=== PATIENT | female | born 1995 | race Caucasian/White ===

== ENCOUNTER 2025-08-16 20:04 | Emergency (ER) | payer MEDICAID, SELFPAY ==
[2025-08-16 20:05] VITALS: BP 161/91; PULSE 102; RESP 20; TEMP 36.6; O2SAT 97; BMI 48.6
[2025-08-16 21:51] VITALS: O2SAT 98
--- NOTE | 2025-08-16 22:51 | RAD_ITS ---
PROCEDURE: LEFT HIP, UNI W/ PELVIS 2-3 VIEWS 08/16/2025 REASON FOR EXAM: PAIN TECHNIQUE: Procedure Code: [facility] Modality: DX Procedure: HIP, UNI W/ PELVIS 2-3 VIEWS Laterality: Left COMPARISON: None. FINDINGS: No acute fracture or dislocation. Alignment is anatomic. Preserved joint spaces. No aggressive osseous lesion. No appreciable soft tissue swelling or unusual mineralization. RAD/HIP, UNI W/ Pelvis 2-3 Views IMPRESSION: No acute fracture or dislocation. Reading Location: [id number]
[2025-08-17 00:10] VITALS: BP 143/63
--- NOTE | 2025-08-17 00:35 | EX.ED.DYSGE1 ---
HPI History of Present Illness Chief Complaint: Fall Informant: patient Narrative Narrative: Patient is a 30-year-old female with past medical history of bipolar disorder and epilepsy. She states an hour or so prior to arrival she missed a step and fell roughly 3 steps hitting her left side and also striking her head. She states over there was no loss of consciousness and she denies any history of bleeding disorder or blood thinner use. She states that she felt/heard a pop in the left hip. She states since that time she has had difficulty ambulate. With concern for underlying injury she was brought in for evaluation. [facility] Medical History (Updated 08/18/25 @ 00:[address] Constantine Lozano, DO) Stroke Heart attack Epilepsy Bipolar 1 disorder, depressed Home Medications ?Medication ?Instructions ?Recorded ?Last Taken ?Type oxycodone-acetaminophen 5 mg-325 1 tab PO Q6H PRN pain 3 days #12 08/17/25 Unknown Rx mg tablet (Percocet) tabs Allergy/AdvReac Type Severity Reaction Status Date / Time amoxicillin Allergy Anaphylaxis Verified 08/16/25 20:08 Penicillins Allergy Anaphylaxis Verified 08/16/25 20:08 Family History Father Diabetes Mother Heart problem Surgical History H/O wisdom tooth extraction H/O section Hx of cholecystectomy Social History household members: spouse and children current occupational status: unemployed Smoking Status: Light Smoker (<10/day) [facility] ED Constitutional Constitutional ED: Denies chills or fever(s) Eyes Eyes: Denies blurry vision or change in vision ENT ENT ED: Denies sore throat Cardiovascular Cardiovascular: Reports other Details: Negative syncope ; Denies chest pain or palpitations Respiratory/Chest Respiratory/Chest: Denies cough or dyspnea Gastrointestinal Gastrointestinal: Denies abdominal pain, diarrhea, nausea or vomiting Musculoskeletal Musculoskeletal: Reports other Details: Positive left hip pain ; Denies back pain or neck pain Integumentary Denies Abrasions or rash Neurologic Neurologic: Denies headache(s) or paresthesias Hematologic/Lymphatic Hematologic/Lymphatic: Denies easy bleeding or easy bruising EXAM Physical Exam Const Vital Signs: 08/17/25 00:10 08/17/25 00:40 Temperature 98.7 F Pulse Rate 70 Respiratory Rate 18 Blood Pressure 143/63 H 128/78 H Blood Pressure Mean 89 94 Pulse Ox 99 Positive well nourished, well developed and obese General Appearance ED: well developed; Negative for pallor Nutritional Appearance: obese HEENT HEENT Narrative: Normocephalic atraumatic No signs of depressed or basilar skull fracture Eyes PERRL and EOMs intact bilaterally General Eye ED: Negative for scleral icterus Neck supple Neck Narrative: No bony deformity or step-off of the cervical spine No midline tenderness to palpation Resp normal respiratory effort and clear to auscultation bilaterally Cardio regular rate and regular rhythm Back/Spine Back/Spine Narrative: No bony deformity or step-off of the thoracic or lumbar spine No midline tenderness to palpation Extremity Extremity Narrative: Pelvis is stable there is no shortening or external rotation of either lower extremity There is pain on palpation along the left greater trochanter but no overlying abrasions or ecchymosis No bony deformity or joint effusion noted All compartments are soft and compressible going against compartment syndrome Neuro oriented x3, CN's II-XII intact bilaterally and no sensory deficits noted Sensorium / Orientation: alert Psych mental status grossly normal Skin no rashes or lesions noted and no wounds General Skin Exam: Negative for jaundice or pallor MDM MDM MDM Narrative Medical decision making narrative: Patient reported a mechanical fall and therefore I felt no need for cardiac or syncope workup. She reports striking her head but there was no report of LOC she does not take blood thinners nor have a history of bleeding disorder. On physical exam she does not have any signs of head injury and therefore I have low concern for underlying traumatic subarachnoid or subdural hemorrhage and there is no need for head CT. With pain along the left hip and her report of hearing/feeling a pop I do have concern for potential fracture. Therefore an x-ray was obtained. X-ray revealed no sign of fracture or dislocation. After receiving medication the patient cannot ambulate with a steady gait. By physical exam she does not have findings for compartment syndrome and there is no overlying findings of infection such as cellulitis or abscess. Therefore with x-ray proving no signs of fracture or dislocation and patient now able to ambulate there is no need for further intervention and she is otherwise safe for discharge History & Record Review Discussion w/independent historian: Patient Radiography Diagnostic Testing: Clinical Impression(s) from Imaging Studies Hip/Pelvis X-Ray 08/16/25 22:51 IMPRESSION: No acute fracture or dislocation. Reading Location: [facility] Left hip x-ray with 1 view pelvis as interpreted by the emergency medicine physician reveals no acute fracture dislocation or joint effusion Discharge Plan Triage Chief Complaint: Fall ED Provider: Constantine Lozano Dx/Rx/DC Orders Clinical Impression: Accidental fall, Contusion of hip, left, Bipolar disorder, Epilepsy Instructions: ED Hip Contusion Prescriptions: New oxycodone-acetaminophen [Percocet] 5-325 mg tablet 1 tab PO Q6H PRN (Reason: pain) 3 Days Qty: 12 0RF Primary Care Provider: NOT,DEFINED Referrals: NOT,DEFINED [Primary Care Provider, None] Activity Restrictions/Additional Instructions: Your x-ray revealed no sign of fracture or dislocation. Continue to ice the area to help reduce pain and swelling and you may also use ouom-dzy-gfhynwm treatments such as lidocaine patches or IcyHot. Return to the ER should you have any further concerns Print Language: Yi Disposition Disposition: Home, Self Care Discharge Date/Time: 08/17/25 00:42
[2025-08-17 00:40] VITALS: BP 128/78; PULSE 70; RESP 18; TEMP 37.1; O2SAT 99
== END 2025-08-17 00:42 | disposition home or self-care (01) ==
PROVIDERS: Emergency Provider Emergency Medicine; Visit Provider Emergency Medicine
DX: S70.02XA Contusion of left hip, initial encounter (principal); F31.9 Bipolar disorder, unspecified; G40.909 Epilepsy, unspecified, not intractable, without status epilepticus; M25.552 Pain in left hip; F17.200 Nicotine dependence, unspecified, uncomplicated; E66.9 Obesity, unspecified; Z90.49 Acquired absence of other specified parts of digestive tract; Z86.73 Personal history of transient ischemic attack (TIA), and cerebral infarction without residual deficits; I25.2 Old myocardial infarction; W10.9XXA Fall (on) (from) unspecified stairs and steps, initial encounter
CPT/HCPCS: 73502; 96372; 99282

== ENCOUNTER 2025-08-22 02:26 | Emergency (ER) | payer MEDICAID, SELFPAY ==
[2025-08-22 02:27] VITALS: BP 152/81; PULSE 70; RESP 16; TEMP 36.6; O2SAT 99; BMI 48.6
--- NOTE | 2025-08-22 02:36 | EKG12_ITS ---
Test Reason : CP Blood Pressure : */* mmHG Vent. Rate : 62 BPM Atrial Rate : 62 BPM P-R Int : 172 ms QRS Dur : 96 ms QT Int : 406 ms P-R-T Axes : 17 49 18 degrees QTcB Int : 412 ms Normal sinus rhythm Normal ECG Confirmed by CRISTIAN MCKEON, YAHIR ([id number]), acquisition editor KAYA LALA ([id number]) on 08/23/2025 9:58:15 AM Referred By: ER Confirmed By: YAHIR FOSTER MD
--- NOTE | 2025-08-22 02:37 | EDS_ITS ---
HPI History of Present Illness Chief Complaint: Chest Pain Narrative Narrative: Patient is a 30-year-old female presenting to the emergency department for chest pain that started about 130 this morning. Patient has a past medical history of a heart attack and stroke at 13? Epilepsy for which she is supposed to be taking Lamictal but is noncompliant with her medications. Patient states that it started when she laid down to go to sleep. She states that stabbing in her midsternal chest. States that she is also having pain radiating down her left arm and it feels tingly. Reports some nausea. Denies diaphoresis. Endorses mild SOB as well that comes and goes. Denies asymmetric lower extremity edema. Denies history of PE or DVT. Denies any recent travel, hospitalizations or surgeries. Denies any use of oral contraceptive hormonal therapy. Reports dizziness with her chest pain as well. States she gets dizzy before I have a seizure. PFSH PFS Medical History Stroke Heart attack Epilepsy Bipolar 1 disorder, depressed Home Medications ?Medication ?Instructions ?Recorded ?Last Taken ?Type oxycodone-acetaminophen 5 mg-325 1 tab PO Q6H PRN pain 3 days #12 08/17/25 Unknown Rx mg tablet (Percocet) tabs lamotrigine 150 mg tablet 150 mg PO BID #30 tabs 08/22 Unknown Rx (Lamictal) Allergy/AdvReac Type Severity Reaction Status Date / Time amoxicillin Allergy Anaphylaxis Verified 08/22/25 02:32 Penicillins Allergy Anaphylaxis Verified 08/22/25 02:32 Family History Father Diabetes Mother Heart problem Surgical History H/O wisdom tooth extraction H/O section Hx of cholecystectomy Social History household members: spouse and children current occupational status: unemployed Smoking Status: Light Smoker (<10/day) ROS ROS ED ROS Narrative see HPI EXAM Physical Exam Narrative Exam Narrative: Vital signs: Reviewed General: Alert and oriented x 3. No acute distress. BMI 48.6 HEENT: Head is normocephalic and atraumatic, sinuses nontender, pupils equal round and reactive. Nares are patent. Oropharynx and throat exams normal. Neck: Supple without lymphadenopathy nontender Cardiovascular: Regular rate and rhythm, no murmurs. No rubs or gallops. Normal S1 and S2. Radial and DP/PT pulses are symmetric and 2+ in all extremities. Respiratory: Clear to auscultation bilaterally. No wheezes, rales, rhonchi Chest: Chest pain is reproducible on palpation of the sternum. Abdominal: Soft and nontender. Normal bowel sounds. No guarding or rebound. Nonsurgical abdomen Extremities: No asymmetric lower extremity edema. No tenderness. No bruising. Normal range of motion. Normal sensation. Skin: No rash or redness. Neurological: Cranial nerves II through XII are grossly intact. Normal strength and sensation. Normal cerebellar function The rest of the physical exam is unremarkable Const Vital Signs: 08/22/25 02:27 08/22/25 03:27 08/22/25 04:00 Temperature 98 F Temperature Source Oral Pulse Rate 70 64 64 Respiratory Rate 16 17 18 Blood Pressure 152/81 H 150/90 H 135/76 H Blood Pressure Mean 104 110 95 Pulse Ox 99 99 100 Oxygen Delivery Method Room Air Room Air 08/22/25 05:00 08/22/25 05:42 Temperature 98 F Temperature Source Pulse Rate 81 72 Respiratory Rate 16 18 Blood Pressure 117/72 156/91 H Blood Pressure Mean 87 112 Pulse Ox 97 97 Oxygen Delivery Method Room Air Heart Score History: Slightly/Non-Suspicious ECG: Normal Age: </= 45 years Risk Factors: >/= 3 Risk Factors or History of CAD Troponin: </= Normal Limit Score: 2 MDM MDM MDM Narrative Medical decision making narrative: Patient is a 30-year-old female presenting to the emergency department for chest pain. Patient was seen and examined. Vitals are stable. Patient resting bed comfortably no acute distress. Patient given Toradol for pain control and Zofran as well as fluids. Differential includes but is not limited to: ACS, costochondritis, pleurisy less likely PE or aortic pathology given history and physical exam PERC negative. EKG shows NSR with no ischemic changes. No dysrhythmia. No ischemic changes. CBC with no leukocytosis and hemoglobin 1.4. BMP with no significant abnormalities. Troponin and reflex within normal limits. Urine negative. Chest x-ray reviewed by myself. No opacities or pneumothorax seen. No widened mediastinum. Radiology read with mild pulmonary vascular congestion. No focal consolidation. Patient reevaluated. She is playing on her phone stating that she is still having pain and is still feeling dizzy. Again, neurologic exam is unremarkable. The dizziness is intermittent. I do not think this is a central cause of vertigo. Given meclizine with improvement in symptoms. With the patient's reproducible chest pain on exam it is likely costochondritis. HEART score of 2 for risk factors given her history. She was instructed to take NSAIDs at home for pain control. Family at bedside states that the patient moved here and has not had any of her medications in a while. I will prescribe her Lamictal that she reports she is on at baseline. I recommended to follow-up with a primary care doctor and provided a referral for her for future refills of the Lamictal and all her other prescriptions. Patient discharged from the Emergency Department. I do not feel that the patient's evaluation reveals any acute reason for admission at this time. I instructed them to either follow-up with their primary care physician or promptly return to the Emergency Department for reevaluation should symptoms worsen or new symptoms develop. I explained what symptoms would indicate the need to return to the emergency department. Shared decision making was used. The patient voiced understanding of the treatment plan and is agreeable with it. Clinical impression Chest pain Costochondritis History & Record Review Discussion w/independent historian: Patient and Family Lab Data Attestation: I reviewed the patient's lab results. Labs: Laboratory Results - last 24 hr 08/22/25 08/22/25 08/22/25 02:17 04:17 04:36 WBC 7.3 RBC 4.30 Hgb 11.4 L Hct 35.8 L MCV 83.3 MCH 26.5 L MCHC 31.8 L RDW Std Deviation 44.1 H RDW Coeff of Radha 14.7 H Plt Count 360 MPV 9.4 Immature Gran % (Auto) 0.100 Neut % (Auto) 50.4 Lymph % (Auto) 39.5 Surry % (Auto) 8.3 Eos % (Auto) 1.1 Baso % (Auto) 0.6 Absolute Neuts (auto) 3.7 Absolute Lymphs (auto) 2.87 Nucleated RBC % 0 Sodium 141 Potassium 3.3 Chloride 107 Carbon Dioxide 22.7 Anion Gap 12 BUN 6 Creatinine 0.84 Estim Creat Clear Calc 132.42 Est GFR (MDRD) Non-Af 95 BUN/Creatinine Ratio 7.2 L Glucose 87 Calcium 9.3 Troponin T High Sens 7 Troponin T Hi Sens 2 Hr 8 Urine Test Negative Radiography Chest X-Ray - ED: 2 View, Read by ED Physician and No Acute Disease Diagnostic Testing: Clinical Impression(s) from Imaging Studies Chest X-Ray 08/22/25 02:50 IMPRESSION: Mild pulmonary vascular congestion. No focal consolidation. Reading Location: [facility] Discharge Plan Triage Chief Complaint: Chest Pain ED Provider: Diana Gardner Dx/Rx/DC Orders Clinical Impression: Costochondritis Instructions: ED Chest Pain, Uncertain Cause, ED Chest Wall Pain, Costochondritis Prescriptions: New lamotrigine [Lamictal] 150 mg tablet 150 mg PO BID Qty: 30 0RF No Action oxycodone-acetaminophen [Percocet] 5-325 mg tablet 1 tab PO Q6H PRN (Reason: pain) 3 Days Qty: 12 0RF Primary Care Provider: Domingo Edwards Referrals: Aga Carr MD [Med Staff - Registered Safety Engineer, Internal Medicine] - As soon as possible NOT,DEFINED [Non-Staff, None] Activity Restrictions/Additional Instructions: Take NSAIDs at home for pain control of your chest pain. I sent your seizure medication to your pharmacy. Take as prescribed. You will need to follow up with a primary care doctor, below, for additional refills and your other prescriptions. Your evaluation in the Emergency Department did not reveal any acute reason for admission. However, I want to emphasize that you may be early in the course of a disease process or illness even if it is not present. For this reason you should follow-up within 24 hours for reevaluation with either your primary care physician or if necessary back here in the Emergency Department. You should return to the Emergency Department immediately if your symptoms worsen or new symptoms develop. Print Language: New Zealander Disposition Disposition: Home, Self Care
[2025-08-22 02:46] LABS: Hematocrit 35.8 % (37-47); Hemoglobin 11.4 g/dL (12.0-15.0); Immature Granulocytes Count 0.010 X10^3/uL (0.0-0.0); Mean Corp Hgb Conc 31.8 g/dL (32-36); Mean Corpuscular Volume 83.3 fL (81-99); Mean Platelet Vol. 9.4 fl (6.2-12.0); NRBC Flagged by Analyzer 0 % (0-5); Platelet Count 360 K/mm3 (150-450); RBC Distribution Width CV 14.7 % (11.6-14.6); RBC Distribution Width SD 44.1 fl (35.1-43.9); Red Blood Count 4.30 M/mm3 (4.2-5.4); White Blood Count 7.3 K/mm3 (4.4-11.0)
--- NOTE | 2025-08-22 02:50 | RAD_ITS ---
PROCEDURE: CHEST PA AND LATERAL 08/21/2025 REASON FOR EXAM: CHEST PAIN TECHNIQUE: Procedure Code: RADCXR Modality: DX Procedure: CHEST PA AND LATERAL FINDINGS: Mild pulmonary vascular congestion. No focal consolidation. No pleural effusion or pneumothorax. Cardiac silhouette is within normal limits. No acute fractures. RAD/Chest PA and Lateral IMPRESSION: Mild pulmonary vascular congestion. No focal consolidation. Reading Location: [id number]
[2025-08-22 03:06] LABS: Anion Gap 12 (5-15); BUN 6 mg/dL (4-19); BUN/Creat Ratio 7.2 RATIO (10-20); Calcium,Total 9.3 mg/dL (7.6-11.0); Carbon Dioxide 22.7 mmol/L (21.0-32.0); Chloride 107 mmol/L (98-108); Estimated Creatinine Clearance 132.42 ml/min (50-250); Glucose 87 mg/dL (70-99); Potassium 3.3 mmol/L (3.3-5.1)
[2025-08-22 03:27] VITALS: BP 150/90; PULSE 64; RESP 17; O2SAT 99
[2025-08-22 03:31] LABS: Troponin T High Sensitivity 7 ng/L (<=14)
[2025-08-22] MEDS: 0.9% Normal Saline (1000mL) 1,000 ML 1000 ML IV (03:55)
[2025-08-22 04:00] VITALS: BP 135/76; PULSE 64; RESP 18; O2SAT 100
[2025-08-22 04:44] LABS: Troponin T High Sens 2 HR 8 ng/L (<=14)
[2025-08-22 04:49] LABS: Internal QC Validated? YES +Cl - CLEAR BKGD; Pregnancy, Urine Negative Negative; Record Kit Lot#,Urine Preg 0000980607
[2025-08-22 05:00] VITALS: BP 117/72; PULSE 81; RESP 16; O2SAT 97
[2025-08-22 05:42] VITALS: BP 156/91; PULSE 72; RESP 18; TEMP 36.6; O2SAT 97
== END 2025-08-22 05:47 | disposition home or self-care (01) ==
PROVIDERS: Emergency Provider Student in an Organized Health Care Education/Training Program; PCP Student in an Organized Health Care Education/Training Program; Visit Provider Student in an Organized Health Care Education/Training Program
DX: M94.0 Chondrocostal junction syndrome [Tietze] (principal); G40.909 Epilepsy, unspecified, not intractable, without status epilepticus; F17.200 Nicotine dependence, unspecified, uncomplicated; Z91.148 Patient's other noncompliance with medication regimen for other reason
CPT/HCPCS: 71046; 80048; 81025; 84484; 85025; 93005; 96361; 96374; 96375; 99285; A4216; J2405

== ENCOUNTER 2025-08-26 03:35 | Emergency (ER) | payer MEDICAID, SELFPAY ==
[2025-08-26 03:35] VITALS: BP 160/101; PULSE 110; RESP 18; TEMP 36.4; O2SAT 98; BMI 50.3
--- NOTE | 2025-08-26 03:46 | CT_ITS ---
PROCEDURE: BRAIN/HEAD WITHOUT CONTRAST 08/26/2025 REASON FOR EXAM: HEAD INJURY TECHNIQUE: Procedure Code: CTBR Modality: CT Procedure: BRAIN/HEAD WITHOUT CONTRAST Coronal and Sagittal reconstruction series were provided. One or more dose reduction techniques were used (e.g., Automated exposure control, adjustment of the mA and/or kV according to patient size, use of iterative reconstruction technique. COMPARISON: None available. FINDINGS: There is no extra-axial or intra-axial intracranial hemorrhage. No mass effect or midline shift is seen. The ventricles, sulci, and cisterns are normal in size and shape for the patient's age. There is normal becerra-white matter differentiation. The posterior fossa is grossly unremarkable. The skull is unremarkable. Visualized paranasal sinuses are clear. The mastoid air cells show normal translucency. CT/Brain/Head without Contrast IMPRESSION: No intracranial hemorrhage. No mass effect or midline shift. Reading [facility]
--- OUTSIDE RECORDS SUMMARY | 2025-08-26 04:00 | XMS RPT_ITS | CCD ---
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 ERICKSON DIETZ ([phone]) [facility] ([facility]) [address] [place] [address] Eosinophils/100 WBC (Bld) 0.6 % Normal 0.0-6.0 [facility] Comment on above: Performed By: #### L [id number] #### Toll Ticket Clerk: ERICKSON DIETZ ([phone]) [place]) [address] [place] [address] Erythrocyte distribution width (RBC) [Ratio] 14.6 % Normal 11.5-15.0 [facility] Comment on above: Performed By: #### L [id number] #### Toll Ticket Clerk: ERICKSON DIETZ ([phone]) [facility] ([facility]) [address] [place] [address] Hematocrit (Bld) [Volume fraction] 37.4 % Normal 35.0-47.0 [facility] Comment on above: Performed By: #### L [id number] #### Toll Ticket Clerk: ERICKSON DIETZ ([phone]) [facility] ([facility]) [address] [place] [address] Hemoglobin (Bld) [Mass/Vol] 12.0 g/dL Normal 11.7-16.0 [facility] Comment on above: Performed By: #### L [id number] #### Toll Ticket Clerk: ERICKSON DIETZ ([phone]) [place]) [address] [place] [address] IMMATURE GRANS % 0.6 % Normal 0.0-2.0 [facility] Comment on above: Performed By: #### L [id number] #### Toll Ticket Clerk: ERICKSON DIETZ ([phone]) [place]) [address] [place] [address] IMMATURE GRANS ABSOLUTE 0.1 10*3/uL High <0.1 [facility] Comment on above: Performed By: #### L [id number] #### Toll Ticket Clerk: ERICKSON DIETZ ([phone]) [place]) [address] [place] [address] Lymphocytes (Bld) [#/Vol] 2.9 10*3/uL Normal 1.0-4.3 [facility] Comment on above: Performed By: #### L [id number] #### Toll Ticket Clerk: ERICKSON DIETZ ([phone]) [place]) [address] [place] [address] Lymphocytes/100 WBC (Bld) 25.0 % Normal 15.0-45.0 [facility] Comment on above: Performed By: #### L [id number] #### Toll Ticket Clerk: ERICKSON DIETZ ([phone]) [place]) [address] [place] [address] MCH (RBC) [Entitic mass] 26.8 pg Normal 26.0-34.0 [facility] Comment on above: Performed By: #### L [id number] #### Toll Ticket Clerk: ERICKSON DIETZ ([phone]) [place]) [address] [place] [address] MCHC 32.1 % Normal 30.5-36.0 [facility] Comment on above: Performed By: #### L [id number] #### Toll Ticket Clerk: ERICKSON DIETZ ([phone]) [facility] ([facility]) [address] [place] [address] MCV (RBC) [Entitic vol] 83.5 fL Normal 77.0-99.0 [facility] Comment on above: Performed By: #### L [id number] #### Toll Ticket Clerk: ERICKSON DIETZ ([phone]) [facility] ([facility]) [address] [place] [address] Monocytes (Bld) [#/Vol] 0.9 10*3/uL Normal 0.0-0.9 [facility] Comment on above: Performed By: #### L [id number] #### Toll Ticket Clerk: ERICKSON DIETZ ([phone]) [facility] ([facility]) [address] [place] [address] Monocytes/100 WBC (Bld) 7.7 % Normal 5.0-13.0 [facility] Comment on above: Performed By: #### L [id number] #### Toll Ticket Clerk: ERICKSON DIETZ ([phone]) [facility] ([facility]) [address] [place] [address] NEUTROPHILS ABSOLUTE 7.7 10*3/uL High 1.8-7.5 [facility] Comment on above: Performed By: #### L [id number] #### Toll Ticket Clerk: ERICKSON DIETZ ([phone]) [facility] ([facility]) [address] [place] [address] Neutrophils/100 WBC (Bld) 65.7 % Normal 38.0-82.0 [facility] Comment on above: Performed By: #### L [id number] #### Toll Ticket Clerk: ERICKSON DIETZ ([phone]) [facility] ([facility]) [address] [place] [address] NRBC 0.0 /100 WBCs Normal 0.0-2.0 [facility] Comment on above: Performed By: #### L [id number] #### Toll Ticket Clerk: ERICKSON DIETZ ([phone]) [facility] ([facility]) [address] [place] [address] Platelet mean volume (Bld) [Entitic vol] 9.2 fL Normal 9.0-12.7 [facility] Comment on above: Performed By: #### L [id number] #### Toll Ticket Clerk: ERICKSON DIETZ ([phone]) [facility] ([facility]) [address] [place] [address] Platelets (Bld) [#/Vol] 369 10*3/uL Normal 140-440 [facility] Comment on above: Performed By: #### L [id number] #### Toll Ticket Clerk: ERICKSON DIETZ ([phone]) [facility] ([facility]) [address] [place] [address] RBC (Bld) [#/Vol] 4.48 10*6/uL Normal 3.80-5.20 [facility] Comment on above: Performed By: #### L [id number] #### Toll Ticket Clerk: ERICKSON DIETZ ([phone]) [facility] ([facility]) [address] [place] [address] WBC (Bld) [#/Vol] 11.7 10*3/uL High 3.6-10.7 [facility] Comment on above: Performed By: #### L [id number] #### Toll Ticket Clerk: ERICKSON DIETZ ([phone]) [facility] ([facility]) [address] [place] [address] COMPLETE URINALYSIS WITH REF DIEGO TO CULTUREon 04-26-2025 BACTERIA (#/HPF) IN URINE Moderate Abnormal Negative [facility] Comment on above: Performed By: #### L [id number] #### Toll Ticket Clerk: ERICKSON DIETZ ([phone]) [facility] ([facility]) [address] [place] [address] BILIRUBIN, TOTAL PRESENCE IN URINE Negative Normal Negative [facility] Comment on above: Performed By: #### L [id number] #### Toll Ticket Clerk: ERICKSON DIETZ ([phone]) [facility] ([facility]) [address] [place] [address] Clarity (U) Turbid Abnormal Clear [facility] Comment on above: Performed By: #### L [id number] #### Toll Ticket Clerk: ERICKSON DIETZ ([phone]) [facility] ([facility]) [address] [place] [address] Color (U) Yellow Normal Lt. Yellow [facility] Comment on above: Performed By: #### L [id number] #### Toll Ticket Clerk: ERICKSON DIETZ ([phone]) [facility] ([facility]) [address] [place] [address] GLUCOSE (MG/DL) IN URINE Normal Normal Normal (<70) [facility] Comment on above: Performed By: #### L [id number] #### Toll Ticket Clerk: ERICKSON DIETZ ([phone]) [facility] ([facility]) [address] [place] [address] HEMOGLOBIN PRESENCE IN URINE Negative Normal Negative [facility] Comment on above: Performed By: #### L [id number] #### Toll Ticket Clerk: ERICKSON DIETZ ([phone]) [facility] ([facility]) [address] [place] [address] HYALINE CASTS (#/LPF) IN URINE SEDIMENT BY MICROSCOPY Negative Normal Negative [facility] Comment on above: Performed By: #### L [id number] #### Toll Ticket Clerk: ERICKSON DIETZ ([phone]) [facility] ([facility]) [address] [place] [address] Ketones Ql (U) Negative Normal Negative [facility] Comment on above: Performed By: #### L [id number] #### Toll Ticket Clerk: ERICKSON DIETZ ([phone]) [facility] ([facility]) [address] [place] [address] LEUKOCYTE ESTERASE PRESENCE IN URINE BY TEST STRIP Negative Normal Negative [facility] Comment on above: Performed By: #### L [id number] #### Toll Ticket Clerk: ERICKSON DIETZ ([phone]) [facility] ([facility]) [address] [place] [address] [place] MUCUS (#/LPF) IN URINE SEDIMENT Few Normal Negative [facility] Comment on above: Performed By: #### L [id number] #### Toll Ticket Clerk: ERICKSON DIETZ ([phone]) [facility] ([facility]) [address] [place] [address] NITRITE PRESENCE IN URINE Positive Abnormal Negative [facility] Comment on above: Performed By: #### L [id number] #### Toll Ticket Clerk: ERICKSON DIETZ ([phone]) [facility] ([facility]) [address] [place] [address] pH (U) 5.5 [pH] Normal 5.0-8.0 [facility] Comment on above: Performed By: #### L [id number] #### Toll Ticket Clerk: ERICKSON DIETZ ([phone]) [facility] ([facility]) [address] [place] [address] Protein (U) [Mass/Vol] 20 mg/dL Abnormal Negative [facility] Comment on above: Performed By: #### L [id number] #### Toll Ticket Clerk: ERICKSON DIETZ ([phone]) [facility] ([facility]) [address] [place] [address] RBC (#/HPF) IN URINE SEDIMENT 0-2 Normal 0-2 [facility] Comment on above: Performed By: #### L [id number] #### Toll Ticket Clerk: ERICKSON DIETZ ([phone]) [place]) [address] [place] [address] Specific gravity (U) [Rel density] 1.031 High 1.005-1.030 [facility] Comment on above: Result Comment: NIRAV Almodovar COMMENTS: A specimen with <=10 WBC is not consistent with inflammation. This specimen will not reflex to a urine culture. Performed By: #### L [id number] #### Toll Ticket Clerk: ERICKSON DIETZ ([phone]) [facility] ([facility]) [address] [place] [address] [place] SQUAMOUS EPITHELIAL CELLS (#/HPF) IN URINE SEDIMENT 11-25 Abnormal 3-5 [facility] Comment on above: Performed By: #### L [id number] #### Toll Ticket Clerk: ERICKSON DIETZ ([phone]) [facility] ([facility]) [address] [place] [address] UROBILINOGEN (MG/DL) IN URINE Normal Normal Normal (0-1) [facility] Comment on above: Performed By: #### L [id number] #### Toll Ticket Clerk: ERICKSON DIETZ ([phone]) [facility] ([facility]) [address] [place] [address] WBC (LEUKOCYTE) (#/HPF) IN URINE SEDIMENT 3-5 Normal 0-5 [facility] Comment on above: Performed By: #### L [id number] #### Toll Ticket Clerk: ERICKSON DIETZ ([phone]) [facility] ([facility]) [address] [place] [address] COMPREHENSIVE METABOLIC PANE Adam 04-26-2025 Albumin [Mass/Vol] 3.7 g/dL Normal 3.5-5.0 [facility] Comment on above: Performed By: #### L [id number] #### Toll Ticket Clerk: ERICKSON DIETZ ([phone]) [facility] ([facility]) [address] [place] [address] ALP [Catalytic activity/Vol] 75 U/L Normal 40-150 [facility] Comment on above: Performed By: #### L [id number] #### Toll Ticket Clerk: ERICKSON DIETZ ([phone]) [facility] ([facility]) [address] [place] [address] ALT [Catalytic activity/Vol] 32 U/L High <30 [facility] Comment on above: Performed By: #### L [id number] #### Toll Ticket Clerk: ERICKSON DIETZ ([phone]) [facility] ([facility]) [address] [place] [address] Anion gap [Moles/Vol] 10 mmol/L Normal 3-13 [facility] Comment on above: Performed By: #### L [id number] #### Toll Ticket Clerk: ERICKSON DIETZ ([phone]) [facility] ([facility]) [address] [place] [address] AST [Catalytic activity/Vol] 31 U/L Normal <34 [facility] Comment on above: Performed By: #### L [id number] #### Toll Ticket Clerk: ERICKSON DIETZ ([phone]) [facility] ([facility]) [address] [place] [address] Bilirubin [Mass/Vol] 0.5 mg/dL Normal <1.2 [facility] Comment on above: Performed By: #### L [id number] #### Toll Ticket Clerk: ERICKSON DIETZ ([phone]) [facility] ([facility]) [address] [place] [address] Calcium [Mass/Vol] 9.2 mg/dL Normal 8.4-10.2 [facility] Comment on above: Performed By: #### L [id number] #### Toll Ticket Clerk: ERICKSON DIETZ ([phone]) [facility] ([facility]) [address] [place] [address] Chloride [Moles/Vol] 106 mmol/L Normal 98-107 [facility] Comment on above: Performed By: #### L [id number] #### Toll Ticket Clerk: ERICKSON DIETZ ([phone]) [facility] ([facility]) [address] [place] [address] CO2 [Moles/Vol] 24 mmol/L Normal 22-29 [facility] Comment on above: Performed By: #### L [id number] #### Toll Ticket Clerk: ERICKSON DIETZ ([phone]) [facility] ([facility]) [address] [place] [address] Creatinine [Mass/Vol] 0.81 mg/dL Normal 0.57-1.11 [facility] Comment on above: Performed By: #### L [id number] #### Toll Ticket Clerk: ERICKSON DIETZ ([phone]) [facility] ([facility]) [address] [place] [address] GLOMERULAR FILTRATION RATE ML/MIN/1.73 SQ M.PREDICTED >90.0 Normal >60.0 [facility] Comment on above: Result Comment: Calc ulation based on the Chronic Kidney Disease Epidemiology Collaboration (CKD-EPI) equation refit without adjustment for race Performed By: #### L [id number] #### Toll Ticket Clerk: ERICKSON DIETZ ([phone]) [facility] ([facility]) [address] [place] [address] [place] Glucose [Mass/Vol] 91 mg/dL Normal 74-100 [facility] Comment on above: Performed By: #### L [id number] #### Toll Ticket Clerk: ERICKSON DIETZ ([phone]) [facility] ([facility]) [address] [place] [address] Potassium [Moles/Vol] 3.9 mmol/L Normal 3.5-5.1 [facility] Comment on above: Result Comment: [facility] potassium values may be up to 0.5 mmol/L lower than serum values. Performed By: #### L [id number] #### Toll Ticket Clerk: ERICKSON DIETZ ([phone]) [facility] ([facility]) [address] [place] [address] Protein [Mass/Vol] 7.8 g/dL Normal 6.4-8.3 [facility] Comment on above: Performed By: #### L [id number] #### Toll Ticket Clerk: ERICKSON DIETZ ([phone]) [facility] ([facility]) [address] [place] [address] [place] Sodium [Moles/Vol] 140 mmol/L Normal 136-145 [facility] Comment on above: Performed By: #### L [id number] #### Toll Ticket Clerk: ERICKSON DIETZ ([phone]) [facility] ([facility]) [address] [place] [address] Urea nitrogen [Mass/Vol] 11 mg/dL Normal 8-21 [facility] Comment on above: Performed By: #### L [id number] #### Toll Ticket Clerk: ERICKSON DIETZ ([phone]) [facility] ([facility]) [address] [place] [address] CT HEAD WO IV CONTRASTon CT HEAD WO IV CONTRAST Patient Name: NADIA BROWN : 1995 Exam Date/Time: 04/26/2025 21:26 Procedure: CT HEAD WO IV CONTRAST Ordering Provider: QUIROZ YASMIN Reason For Exam: Dizziness, persistent/recurrent, cardiac or vascular cause suspected Gender: Female Age: 29 years Exam: CT HEAD WO IV CONTRAST Clinical Indication: Dizziness Imaging Technique: Multiple axial 3mm CT images of the head were obtained from the skull base to the vertex. Coronal and sagittal reconstructs were rendered. Dose reduction was employed with automated exposure control. Comparison: 05/23/2014 FINDINGS: There is no acute intracranial hemorrhage. The brain parenchyma ventricle morphology is within normal limits for the patient's age. The globes are symmetric. The calvarium is intact. The paranasal sinuses are pneumatized. The mastoid air cells are pneumatized. IMPRESSION: Imaging does not explain the patient's clinical symptoms. Report Dictated on Electronically Signed By: Stefanie Cortez MD Electronically Signed Date/Time: 04/26/2025 9:36 PM EDT Dizziness (Patient presents for dizziness for a couple of days ) [facility] contraston 2024 Imaging does not exp sandra the patient's clinical symptoms. Report Dictated on Electronically Signed By: Stefanie Cortez MD Electronically Signed Date/Time: 04/26/2025 9:36 PM EDT [facility] [place] [facility] 1995 [id number] Exam Date/Time: 04/26/2025 21:26 Procedure: CT HEAD WO IV CONTRAST Ordering Provider: QUIROZ YASMIN Reason For Exam: Dizziness, persistent/recurrent, cardiac or vascular cause suspected Gender: Female Age: 29 years Exam: CT HEAD WO IV CONTRAST Clinical Indication: Dizziness Imaging Technique: Multiple axial 3mm CT images of the head were obtained from the skull base to the vertex. Coronal and sagittal reconstructs were rendered. Dose reduction was employed with automated exposure control. Comparison: 05/23/2014 FINDINGS: There is no acute intracranial hemorrhage. The brain parenchyma ventricle morphology is within normal limits for the patient's age. The globes are symmetric. The calvarium is intact. The paranasal sinuses are pneumatized. The mastoid air cells are pneumatized. [facility] Stefanie Cortez MD - 04/26/2025 Patient Name: NADIA BROWN : 1995 [facility]#: [id number] Exam Date/Time: 04/26/2025 21:26 Procedure: CT HEAD WO IV CONTRAST Ordering Provider: QUIROZ YASMIN Reason For Exam: Dizziness, persistent/recurrent, cardiac or vascular cause suspected Gender: Female Age: 29 years Exam: CT HEAD WO IV CONTRAST Clinical Indication: Dizziness Imaging Technique: Multiple axial 3mm CT images of the head were obtained from the skull base to the vertex. Coronal and sagittal reconstructs were rendered. Dose reduction was employed with automated exposure control. Comparison: 05/23/2014 FINDINGS: There is no acute intracranial hemorrhage. The brain parenchyma ventricle morphology is within normal limits for the patient's age. The globes are symmetric. The calvarium is intact. The paranasal sinuses are pneumatized. The mastoid air cells are pneumatized. IMPRESSION: Imaging does not explain the patient's clinical symptoms. Report Dictated on Electronically Signed By: Stefanie Cortez MD Electronically Signed Date/Time: 04/26/2025 9:36 PM EDT [facility] Radiology Study observation (narrative) [facility] CT Head WO contrastOrdered B y: Stefanie Cortez on 04-26-2025 [facility] [employer] Work Phone: Comprehensive metabolic 1998 panelon 04-26-2025 Albumin [Mass/Vol] 3.7 g/dL 3.5 - 5.0 g/dL [facility] ALP [Catalytic activity/Vol] 75 U/L 40 - 150 U/L [facility] ALT [Catalytic activity/Vol] 32 U/L High NINF - 30 U/L [facility] Anion gap [Moles/Vol] 10 mmol/L 3 - 13 mmol/L [facility] AST [Catalytic activity/Vol] 31 U/L NINF - 34 U/L [facility] Bilirubin [Mass/Vol] 0.5 mg/dL NINF - 1.2 mg/dL [facility] Calcium [Mass/Vol] 9.2 mg/dL 8.4 - 10. 2 mg/dL [facility] Chloride [Moles/Vol] 106 mmol/L 98 - 10 7 mmol/L [facility] CO2 [Moles/Vol] 24 mmol/L 22 - 29 mmol/L [facility] Creatinine [Mass/Vol] 0.81 mg/dL 0.57 - 1.11 mg/dL [facility] GFR/1.73 sq M.predicted (S/P/Bld) [Vol rate/Area] - PINF [facility] Comment on above: Calculation based on the Chronic Kidney Disease Epidemiology Collaboration (CKD-EPI) equation refit without adjustment for race Glucose [Mass/Vol] 91 mg/dL 74 - 100 mg/dL [facility] Interpretation and review of laboratory results Abnormal [facility] Potassium [Moles/Vol] 3.9 mmol/L 3.5 - 5.1 mmol/L [facility] Comment on above: Plasma potassium roseanne ues may be up to 0.5 mmol/L lower than serum values. Protein [Mass/Vol] 7.8 g/dL 6.4 - 8.3 g/dL [facility] Sodium [Moles/Vol] 140 mmol/L 136 - 145 mmol/L [facility] Urea nitrogen [Mass/Vol] 11 mg/dL 8 - 21 mg/dL [facility] DRUGS OF ABUSEon 04-26-2025 AMPHETAMINE SCREEN Negative Normal [facility] Comment on above: Performed By: #### [id number] #### Toll Ticket Clerk: ERICKSON DIETZ ([phone]) [facility] ([facility] & [facility]) [address] [place] [address] BARBITURATES SCREEN Negative Normal [facility] Comment on above: Performed By: #### L [id number] #### Toll Ticket Clerk: ERICKSON DIETZ ([phone]) [facility] ([facility]) [address] [place] [address] [place] BENZODIAZEPINE SCREEN Negative Normal [facility] Comment on above: Performed By: #### L [id number] #### Toll Ticket Clerk: ERICKSON DIETZ ([phone]) [facility] ([facility]) [address] [place] [address] COCAINE METAB. SCREEN Negative Normal [facility] Comment on above: Performed By: #### L [id number] #### Toll Ticket Clerk: ERICKSON DIETZ ([phone]) [facility] ([facility]) [address] [place] [address] FENTANYL SCREEN, UR QUAL Negative Normal [facility] Comment on above: Result Comment: NIRAV Almodovar COMMENTS: The expected value for all of the drugs listed above is Negative. The following drugs or drug groups have been screened for by Immunoassay at the following thresholds: Amphetamine class (1000 ng/mL) Barbiturates (200 ng/mL) Benzodiazepines (200 ng/mL) Cocaine (300 ng/mL) Methadone (300 ng/mL) Opiates (300 ng/mL) Oxycodone (100 ng/mL) PCP (25 ng/mL) Fentanyl (1.0 ng/ml) NOTE: These results are for medical treatment only. Analysis performed using non-forensic procedures. POSITIVE results are NOT confirmed by a more specific alternative method unless requested. If confirmation is needed, request confirmation under separate order. Performed By: #### L [id number] #### Toll Ticket Clerk: ERICKSON DIETZ ([phone]) [facility] ([facility]) [address] [place] [address] METHADONE SCREEN Negative [facility] Comment on above: Performed By: #### L [id number] #### Toll Ticket Clerk: ERICKSON DIETZ ([phone]) [facility] ([facility]) [address] [place] [address] OPIATES SCREEN Negative Normal [facility] Comment on above: Performed By: #### L [id number] #### Toll Ticket Clerk: ERICKSON DIETZ ([phone]) [facility] ([facility]) [address] [place] [address] OXYCODONE SCREEN Negative [facility] Comment on above: Performed By: #### L [id number] #### Toll Ticket Clerk: ERICKSON DIETZ ([phone]) [facility] ([facility]) [address] [place] [address] PHENCYCLIDINE SCREEN Negative Normal [facility] Comment on above: Performed By: #### L [id number] #### Toll Ticket Clerk: ERICKSON DIETZ ([phone]) [facility] ([facility] ED Provider Noteon ED Provider Note Emergency Department Encounter [facility] EMERGENCY DEPT Patient: Nadia Brown : 1995 Date of Evaluation: 04/26/2025 ED ELIF Provider: Fernando Landry PA-C EDcare was supervised by Dr. Quiroz who independently examined and evaluated the patient. Please see their attestation note for further details. Chief Complaint Chief Complaint Patient presents with Dizziness Patient presents for dizziness for a couple of days LYTTONSharmila Brown is a 29 y.o. female who presents to the emergency department for dizziness for a few days and syncope today. History of epilepsy. On Lamictal. Patient says she did pass out today. No head injury. Describes the dizziness as a room spinning sensation. No slurred speech, facial drooping, chest pain, shortness of breath. Limitations to history: None Outside historians: EMR Past History Medical History[1] Surgical History[2] Social History[3] Medications/Allergies Discharge Medication List as of 04/27/2025 12:20 AM Allergies[4] Physical Exam BP 130/88 Pulse 89 Temp 37 ?C (98.6 ?F) (Temporal) Resp 16 Ht 1.651 m (5' 5) Wt 129 kg (285 lb) SpO2 99% BMI 47.43 kg/m? Physical Exam GENERAL APPEARANCE: Awake and alert. Cooperative. No acute distress. HEAD: Normocephalic. Atraumatic. EYES: Sclera anicteric. ENT: Tolerates saliva. No trismus. EOMI. PERRLA NECK: Supple. Trachea midline. CARDIO: Normal rate. LUNGS: Respirations unlabored. CTAB. ABDOMEN: Soft. Non-distended. Non-tender. MUSCULOSKELETAL: No acute deformities. SKIN: Warm and dry. NEUROLOGICAL: Alert, Oriented x 3, NIH 0, cia agent II-XII intact. HINTS exam c/w peripheral vertigo. Gait normal PSYCHIATRIC: Normal mood. SCREENINGS D Labs: Results for orders placed or performed during the hospital encounter of 04/26/25 ECG 12 lead Collection Time: 04/26/25 6:58 PM Result Value Ref Range Heart Rate 105 bpm QRSD Interval 84 ms QT Interval 321 ms QTC Interval 424 ms P Rudy 43 degrees QRS Rudy 36 degrees T Wave Rudy 39 degrees TN Interval 154 ms Drug screen panel, emergency Collection Time: 04/26/25 9:14 PM Result Value Ref Range AMPHETAMINE SCREEN Negative BARBITURATES SCREEN Negative BENZODIAZEPINE SCREEN Negative COCAINE METAB. SCREEN Negative METHADONE SCREEN Negative OPIATES SCREEN Negative OXYCODONE SCREEN Negative PHENCYCLIDINE SCREEN Negative FENTANYL SCREEN, UR QUAL Negative Complete Urinalysis with reflex to Culture Collection Time: 04/26/25 9:14 PM Result Value Ref Range Color, Urine Yellow Lt. Yellow Clarity, Urine Turbid (A) Clear pH, Urine 5.5 5.0 - 8.0 pH Leukocytes, Urine Negative Negative Michael/uL Nitrite, Urine Positive (A) Negative Protein, Urine 20 (A) Negative mg/dL Glucose, Urine Normal Normal (<70) mg/dL Bilirubin, Urine Negative Negative mg/dL Ketones, Urine Negative Negative mg/dL Urobilinogen, Urine Normal Normal (0-1) mg/dL Blood, Urine Negative Negative mg/dL RBC, Urine 0-2 0 - 2 /HPF WBC, Urine 3-5 0 - 5 /HPF Squamous Epithelial, Urine 11-25 (A) 3 - 5 /HPF Bacteria, Urine Moderate (A) Negative /HPF Mucus, Urine Few Negative /LPF Hyaline Casts, Urine Negative Negative /LPF SPECIFIC GRAVITY OF URINE (NUMERIC) 1.031 (H) 1.005 - 1.030 hCG, quantitative, Collection Time: 04/26/25 10:24 PM Result Value Ref Range HCG QUANTITATIVE <2.5 Females <5 mIU/mL Blood gas, venous (ACH and [facility]) Collection Time: 04/26/25 10:24 PM Result Value Ref Range pH, Venous 7.385 7.330 - 7.430 pCO2, Venous 43.7 40.0 - 55.0 mm Hg pO2, Venous 29.6 mm Hg HCO3, Venous 25.6 23.0 - 27.0 mmol/L O2 Sat, Venous 44.3 % Base Excess, Venous 0.3 -3.0 - 3.0 mmol/L Hgb, blood gas 12.4 Screen only g/dl TCO2, Venous 26.9 24.0 - 28.0 mmol/L Source Of Oxygen None (Room Air) Amount Of Oxygen Lactic acid with reflex Collection Time: 04/26/25 10:24 PM Result Value Ref Range LACTIC ACID 1.4 0.5 - 2.2 mmol/L CBC auto differential Collection Time: 04/26/25 10:24 PM Result Value Ref Range Auto WBC 11.7 (H) 3.6 - 10.7 10*3/uL RBC 4.48 3.80 - 5.20 10*6/uL Hemoglobin 12.0 11.7 - 16.0 g/dL Hematocrit 37.4 35.0 - 47.0 % MCV 83.5 77.0 - 99.0 fL MCH 26.8 26.0 - 34.0 pg MCHC 32.1 30.5 - 36.0 % RDW 14.6 11.5 - 15.0 % Platelets 369 140 - 440 10*3/uL MPV 9.2 9.0 - 12.7 fL nRBC 0.0 0.0 - 2.0 /100 WBCs Neutrophils Relative 65.7 38.0 - 82.0 % Lymphocytes Relative 25.0 15.0 - 45.0 % Monocytes Relative 7.7 5.0 - 13.0 % Eosinophils Relative 0.6 0.0 - 6.0 % Basophils Relative 0.4 0.0 - 2.0 % Immature Grans % 0.6 0.0 - 2.0 % Neutrophils Absolute 7.7 (H) 1.8 - 7.5 10*3/uL Lymphocytes Absolute 2.9 1.0 - 4.3 10*3/uL Monocytes Absolute 0.9 0.0 - 0.9 10*3/uL Eosinophils Absolute 0.1 0.0 - 0.5 10*3/uL Basophils Absolute 0.1 0.0 - 0.2 10*3/uL Immature Grans Absolute 0.1 (H) <0.1 10*3/uL Comprehensive metabolic panel Collection Time: 04/26/25 10:24 PM Result Roseanne (more content not included)... Normal [facility] ED Provider Note Emergency Department Encounter [facility] EMERGENCY DEPT Patient: Nadia Brown : 1995 Date of Evaluation: 04/26/2025 ED Supervising Physician: Diamond Quiroz MD I personally evaluated Nadia Brown and made/approved the management plan and take responsibility for the patient management. This will serve as my Supervisory note and shared attestation. I did perform a substantive portion of the visit including all aspects of the Medical Decision Making. I wore appropriate PPE for the entirety of this encounter. In brief, Nadia Brown is a 29 y.o. that presents to the emergency department for dizziness. States that ongoing for the last few days and today she felt like she is going to pass out. Does have a history of epilepsy but no seizure activity today. States that it is a room spinning sensation and she cannot look around because of how dizzy she has. Focused exam: Obese female in no acute distress. All vital signs reviewed and unremarkable. Patient does have peripheral vertigo on examination but no focal neurologic deficits. NIH of 0. Hints exam unremarkable Brief ED course/MDM: 29-year-old female presenting for dizziness. Afebrile hemodynamically stable. Initially upon arrival she said that she could not open her eyes or do any kind of nystagmus testing because of how bad the vertigo was. She is generally unwell appearing so we did do quite a broad workup. [place] much better after getting medications here in the emergency department and she was able to use her phone and was looking around. All of her workup was unremarkable other than testing positive for possible UTI. She was given strict return precautions and discharged in stable condition. Diagnostics interpreted by me: I personally discussed the patient's management with other clinicians: All diagnostic, treatment, and disposition decisions were made by myself in conjunction with the ELIF. For all further details of the patient's emergency department visit, please see their documentation. (Comment: Please note this report has been produced using speech recognition software and may contain errors related to that system including errors in grammar, punctuation, and spelling, as well as words and phrases that may be inappropriate. If there are any questions or concerns please feel free to contact the dictating provider for clarification.) Diamond Quiroz MD [employer] Diamond Quiroz MD 05/01/25 0132 Normal [facility] ETHANOLon 04-26-2025 ETHANOL IN SER/PLAS- MAZARIEGOS <10 Normal <10 [facility] Comment on above: Result Comment: NIRAV Almodovar COMMENTS: [employer] depression is seen >100 mg/dL. NOTE: This result is for medical treatment only. Analysis performed using non-forensic procedures. Performed By: #### L [id number] #### Toll Ticket Clerk: ERICKSON DIETZ ([phone]) [facility] ([facility]) [address] Ethanol (Bld) [Mass/Vol]on 0 04-26-2025 Ethanol [Mass/Vol] mg/dL NINF - 10 mg/dL [facility] [employer] Interpretation and review of laboratory results Normal [facility] [employer] depression is se en >100 mg/dL. NOTE: This result is for medical treatment only. Analysis performed using non-forensic procedures. [email or web address] HCG QUANTITATIVE BLOODon HCG QUANTITATIVE <2.5 Normal Females <5 [facility] Comment on above: Result Comment: ORDE R COMMENTS: Values in should double every 2 to 3 days for the first 6 weeks. Elevated concentrations of human chorionic gonadotropin (hCG) measured in the first trimester of are observed in normal , but may serve as an indication of chorionic carcinoma, hydatiform mole, or multiple . Decreasing hCG concentrations indicate threatened or missed , recent termination of , ectopic , gestosis or intrauterine . Rosalba- and postmenopausal females may have detectable hCG concentrations (< or = to 14 mIU/mL) due to pituitary production of hCG. Serum follicle-stimulating hormone measurement may aid in ruling-out in this population. Cutoffs of greater than 20 to 45 mIU/mL have been suggested and are method dependent. False-elevations (called phantom human chorionic gonadotropin: hCG) may occur with patients who have human antianimal or heterophilic antibodies. Some specimens may not dilute linearly due to abnormal forms of hCG. Elevated hCG concentrations not associated with are found in patients with other diseases such as tumors of the germ cells, ovaries, bladder, pancreas, stomach, lungs, and liver. This test is not intended to detect or monitor tumors or gestational trophoblastic disease. Performed By: #### L [id number] #### Toll Ticket Clerk: ERICKSON DIETZ ([phone]) [facility] ([facility]) [address] [place] [address] HIGH SENSITIVITY TROPONIN, S ERIAL BASELINEon 04-26-2025 TROPONIN HS SERIAL BASELINE 4 ng/L Normal <=14 [facility] [employer] [facility] Comment on above: Result Comment: In i ndividuals presenting with symptoms > 2h, a baseline troponin <= 5 ng/L suggests acute cardiac injury is unlikely and further serial testing is generally not indicated. Performed By: #### L [id number] #### Toll Ticket Clerk: ERICKSON DIETZ ([phone]) [facility] ([facility]) [address] [place] [address] LACTIC ACID WITH REFLEXon Lactate [Moles/Vol] 1.4 mmol/L Normal 0.5-2.2 [facility] Comment on above: Performed By: #### L [id number] #### Toll Ticket Clerk: ERICKSON DIETZ ([phone]) [facility] ([facility]) [address] [place] [address] LAMOTRIGINE LEVEL (BKR QUEST )on 04-26-2025 QUEST LAMOTRIGINE <0.5 Low 2.5-15.0 [facility] [email or web address] [facility] Comment on above: Result Comment: This test was developed and its analytical performance characteristics have been determined by [employer] [place], [place]. It has not been cleared or approved by the U.S. Food and Drug Administration. This assay has been validated pursuant to the CLIA regulations and is used for clinical purposes. Test Performed by [employer], [employer] [facility], [address] [place] [address] Kailash De La Cruz M.D., Ph.D., Director of Laboratories , CLIA [id number] Performed By: #### L [id number] #### [employer] ([employer]) [address] [place] [address] [facility] Laboratory - Chemistry and C hemistry - challengeon 04-26-2025 HCG.beta subunit Qn Females <5 mIU/mL [facility] [employer] Lactate [Moles/Vol] 1.4 mmol/L 0.5 - 2. 2 mmol/L [facility] Laboratory - Chemistry and C hemistry - challengeOrdered By: Vicente Escoto on 04-26-2025 Base excess Calc (BldV) [Moles/Vol] 0.3 mmol/L -3.0 - 3.0 mmol/L [facility] [employer] CO2 (BldV) [Partial pressure] 43.7 mm[Hg] [facility] CO2 [Moles/Vol] 26.9 mmol/L 24.0 - 28.0 mmol/L [facility] HCO3 (Bld) [Moles/Vol] 25.6 mmol/L 23.0 - 27.0 mmol/L [facility] Oxygen (BldV) [Partial pressure] 29.6 mm[Hg] mm Hg [facility] pH (BldV) 7.385 [pH] 7.330 - 7.430 [facility] Laboratory - Drug toxicology on 04-26-2025 Amphetamines Screen method >1000 ng/mL Ql (U) Negative [facility] Barbiturates Screen method >200 ng/mL Ql (U) Negative [facility] Benzodiazepines Ql (U) Negative [facility] Methadone Screen Ql (U) Negative [facility] Opiates Screen Ql (U) Negative [facility] oxyCODONE Ql (U) Negative [facility] alth Phencyclidine Ql (U) Negative [facility] Laboratory - Hematology and Cell countsOrdered By: Vicente Escoto on 04-26-2025 Hemoglobin (Bld) [Mass/Vol] 12.4 g/dL 7.0 g/dl [facility] NT PRO BNPon 04-26-2025 NT PRO BNP <15 Normal <125 [facility] Comment on above: Performed By: #### L [id number] #### Toll Ticket Clerk: ERICKSON DIETZ ([phone]) [address] Natriuretic peptide B [Mass/ Vol]on 04-26-2025 Interpretation and review of laboratory results Normal [facility] Natriuretic peptide B (Bld) [Mass/Vol] pg/mL NINF - 125 pg/mL [facility] No Panel Informationon 04-26 Interpretation and review of laboratory results Normal [facility] Troponin HS Serial Baseline 4 ng/L NINF - 14 ng/L [facility] Comment on above: In individuals prese nting with symptoms > 2h, a baseline troponin <= 5 ng/L suggests acute cardiac injury is unlikely and further serial testing is generally not indicated. Values in should double every 2 to 3 days for the first 6 weeks. Elevated concentrations of human chorionic gonadotropin (hCG) measured in the first trimester of are observed in normal , but may serve as an indication of chorionic carcinoma, hydatiform mole, or multiple . Decreasing hCG concentrations indicate threatened or missed , recent termination of , ectopic , gestosis or intrauterine . Rosalba- and postmenopausal females may have detectable hCG concentrations (< or = to 14 mIU/mL) due to pituitary production of hCG. Serum follicle-stimulating hormone measurement may aid in ruling-out in this population. Cutoffs of greater than 20 to 45 mIU/mL have been suggested and are method dependent. False-elevations (called phantom human chorionic gonadotropin: hCG) may occur with patients who have human antianimal or heterophilic antibodies. Some specimens may not dilute linearly due to abnormal forms of hCG. Elevated hCG concentrations not associated with are found in patients with other diseases such as tumors of the germ cells, ovaries, bladder, pancreas, stomach, lungs, and liver. This test is not intended to detect or monitor tumors or gestational trophoblastic disease. [facility] Interpretation and review of laboratory results Normal [facility] COCAINE METAB. SCREEN Negative [facility] FENTANYL SCREEN, UR QUAL Negative [facility] The expected value f or all of the drugs listed above is Negative. The following drugs or drug groups have been screened for by Immunoassay at the following thresholds: Amphetamine class (1000 ng/mL) Barbiturates (200 ng/mL) Benzodiazepines (200 ng/mL) Cocaine (300 ng/mL) Methadone (300 ng/mL) Opiates (300 ng/mL) Oxycodone (100 ng/mL) PCP (25 ng/mL) Fentanyl (1.0 ng/ml) NOTE: These results are for medical treatment only. Analysis performed using non-forensic procedures. POSITIVE results are NOT confirmed by a more specific alternative method unless requested. If confirmation is needed, request confirmation under separate order. [facility] No Panel InformationOrdered By: Vicente Escoto on 04-26-2025 Amount Of Oxygen [facility] Source Of Oxygen None (Room Air) [facility] Assessment of oxygen ation is best done with an arterial blood gas determination. Reference ranges for pO2, bicarbonate, and base excess are for mixed venous blood. Specimens drawn from a peripheral vein will often have higher values. [facility] Urinalysis complete panel (U )Ordered By: Amish Alexis on 04-26-2025 Bacteria LM.HPF (Urine sed) [#/Area] Moderate Abnormal Negative /HPF [facility] Bilirubin Ql (U) Negative Negative mg/dL [facility] Clarity (U) Turbid Abnormal Clear [facility] Color (U) Yellow Lt. Yellow [facility] Epithelial cells.squamous LM.HPF (Urine sed) [#/Area] 11-25 [facility]normal [facility] Glucose Ql (U) Normal Normal (<70) mg/dL [facility] Hemoglobin Ql (U) Negative Negative mg/dL [facility] Hyaline casts Auto (Urine sed) [#/Area] Negative Negative /LPF [facility] Interpretation and review of laboratory results Abnormal [facility] Ketones (U) [Mass/Vol] Negative Negative mg/dL [facility] Leukocyte esterase Test strip Ql (U) Negative Negative Michael/uL [facility] Mucus LM.HPF (Urine sed) [#/Area] Few Negative /LPF [facility] Nitrite Ql (U) Positive Abnormal Negative [facility] th pH (U) 5.5 [pH] 5.0 - 8.0 pH [facility] Protein (U) [Mass/Vol] 20 mg/dL Abnormal Negative [facility] RBC LM.HPF (Urine sed) [#/Area] 0-2 [facility] Specific gravity (U) [Rel density] 1.031 High 1.005 - 1.030 [facility] Urobilinogen (U) [Mass/Vol] Normal Normal (0-1) mg/dL [facility] WBC LM.HPF (Urine sed) [#/Area] 3-5 [facility] A specimen with <=10 WBC is not consistent with inflammation. This specimen will not reflex to a urine culture. [facility] Vital signsOrdered By: Vicente Escoto on 04-26-2025 Oxygen saturation in Venous blood 44.3 % [facility] XR Chest Single viewon 04-26 No evidence of an acute cardiopulmonary abnormality. Report Dictated on Electronically Signed By: Philip Del Cid MD Electronically Signed Date/Time: 04/26/2025 9:02 PM T [facility] Patient Name: NADIA JUAN : 1995 Exam Date/Time: 04/26/2025 20:54 Procedure: XR CHEST 1 VIEW Ordering Provider: QUIROZ YASMIN Reason For Exam: sob AP CHEST X-RAY CLINICAL INDICATION: sob shortness of breath TECHNIQUE: AP portable x-ray of the chest. COMPARISON: 11/10/2019 FINDINGS: Heart/Mediastinum: Within normal limits Lungs: No consolidation or pleural effusion. Bones: Unremarkable [facility] Philip Del Cid M D - 04/26/2025 Patient Name: NADIA BROWN : 1995 [facility]#: [id number] Exam Date/Time: 04/26/2025 20:54 Procedure: XR CHEST 1 VIEW Ordering Provider: QUIROZ YASMIN Reason For Exam: sob AP CHEST X-RAY CLINICAL INDICATION: sob shortness of breath TECHNIQUE: AP portable x-ray of the chest. COMPARISON: 11/10/2019 FINDINGS: Heart/Mediastinum: Within normal limits Lungs: No consolidation or pleural effusion. Bones: Unremarkable IMPRESSION: No evidence of an acute cardiopulmonary abnormality. Report Dictated on Electronically Signed By: Phiilp Del Cid MD Electronically Signed Date/Time: 04/26/2025 9:02 PM EDT [facility] [employer] Radiology Study observation (narrative) [facility] [employer] XR Chest Single viewOrdered By: Philip Del Cid on 04-26-2025 [email or web address] Work Phone: .Auto Diffon 09-25-2024 Basophil, Absolute 0.0 10 3/mcL Normal 0.0-0.3 [facility] Comment on above: Performed By: #### A NICOLE, HCGQ, MDW, ADIFF, CRP, CMP, CBC, GFR, ESR #### [facility] [address], [place] [address] Basophils/100 WBC (Bld) 0.4 % Normal 0.0-2.5 [facility] Comment on above: Performed By: #### A NICOLE, HCGQ, MDW, ADIFF, CRP, CMP, CBC, GFR, ESR #### [facility] [address], [place] [address] Eosinophil, Absolute 0.1 10 3/mcL Normal 0.0-0.7 [facility] Comment on above: Performed By: #### A NICOLE, HCGQ, MDW, ADIFF, CRP, CMP, CBC, GFR, ESR #### [address] [address] Eosinophils/100 WBC (Bld) 1.4 % Normal 0.0-6.0 [facility] Comment on above: Performed By: #### A NICOLE, HCGQ, MDW, ADIFF, CRP, CMP, CBC, GFR, ESR #### [address] [address] Lymphocyte, Absolute 2.5 10 3/mcL Normal 0.9-4.3 [facility] Comment on above: Performed By: #### A NICOLE, HCGQ, MDW, ADIFF, CRP, CMP, CBC, GFR, ESR #### [address] [address] Lymphocytes/100 WBC (Bld) 31.5 % Normal 20.0-40.0 [facility] Comment on above: Performed By: #### A NICOLE, HCGQ, MDW, ADIFF, CRP, CMP, CBC, GFR, ESR #### [address] [address] Monocyte, Absolute 0.5 10 3/mcL Normal 0.1-1.4 [facility] Comment on above: Performed By: #### A NICOLE, HCGQ, MDW, ADIFF, CRP, CMP, CBC, GFR, ESR #### [address] [address] Monocytes/100 WBC (Bld) 6.1 % Normal 2.0-13.0 [facility] Comment on above: Performed By: #### A NICOLE, HCGQ, MDW, ADIFF, CRP, CMP, CBC, GFR, ESR #### [address] [address] Neutrophils/100 WBC (Bld) 60.6 % Normal 50.0-75.0 [facility] Comment on above: Performed By: #### A NICOLE, HCGQ, MDW, ADIFF, CRP, CMP, CBC, GFR, ESR #### [address] [place], [place] [address] .GFRon 09-25-2024 GFR 97 ml/min/1.73sqm Normal [facility] Comment on above: Result Comment: GFR Population mean for , Non- Americans Ages 20-29 = 116 mL/min/1.73 sq.m. Ages 30-39 = 107 mL/min/1.73 sq.m. Ages 40-49 = 99 mL/min/1.73 sq.m. Ages 50-59 = 93 mL/min/1.73 sq.m. Ages 60-69 = 85 mL/min/1.73 sq.m. Ages 70+ = 75 mL/min/1.73 sq.m. Chronic Kidney Disease: Less than 60 mL/min/1.73 square meters End Stage Renal Disease: Less than 15 mL/min/1.73 square meters Performed By: #### A NICOLE, HCGQ, MDW, ADIFF, CRP, CMP, CBC, GFR, ESR #### [facility] [address], [place] [address] GFR Non- 80 ml/min/1.73sqm Normal [facility] Comment on above: Result Comment: GFR Population mean for , Non- Americans Ages 20-29 = 116 mL/min/1.73 sq.m. Ages 30-39 = 107 mL/min/1.73 sq.m. Ages 40-49 = 99 mL/min/1.73 sq.m. Ages 50-59 = 93 mL/min/1.73 sq.m. Ages 60-69 = 85 mL/min/1.73 sq.m. Ages 70+ = 75 mL/min/1.73 sq.m. Chronic Kidney Disease: Less than 60 mL/min/1.73 square meters End Stage Renal Disease: Less than 15 mL/min/1.73 square meters Performed By: #### A NICOLE, HCGQ, MDW, ADIFF, CRP, CMP, CBC, GFR, ESR #### [facility] [address] [place], [place] [address] .MDWon 09-25-2024 Monocyte Distribution Width 18.90 Normal 0.00-20.00 [facility] Comment on above: Result Comment: For ED adult patients suspected of sepsis, MDW<=20.0 does not rule out sepsis or risk of sepsis Performed By: #### A NICOLE, HCGQ, MDW, ADIFF, CRP, CMP, CBC, GFR, ESR #### [facility] [address] [place] [address] .NEUABSon 09-25-2024 Neutrophil, Absolute 4.8 10 3/mcL Normal 2.3-8.1 [facility] Comment on above: Performed By: #### A NICOLE, HCGQ, MDW, ADIFF, CRP, CMP, CBC, GFR, ESR #### [facility] [address] [address] CBCon 09-25-2024 Erythrocyte distribution width (RBC) [Ratio] 17.4 % High 11.5-15.5 [facility] Comment on above: Performed By: #### A NICOLE, HCGQ, MDW, ADIFF, CRP, CMP, CBC, GFR, ESR #### [facility] [address] [address] Hematocrit (Bld) [Volume fraction] 34.9 % Normal 34.0-46.0 [facility] Comment on above: Performed By: #### A NICOLE, HCGQ, MDW, ADIFF, CRP, CMP, CBC, GFR, ESR #### [facility] [address] [address] Hgb 11.3 G/dL Low 12.0-16.0 [facility] Comment on above: Performed By: #### A NICOLE, HCGQ, MDW, ADIFF, CRP, CMP, CBC, GFR, ESR #### [facility] [address] [address] MCH (RBC) [Entitic mass] 25.2 pg Low 27.0-33.0 [facility] Comment on above: Performed By: #### A NICOLE, HCGQ, MDW, ADIFF, CRP, CMP, CBC, GFR, ESR #### [facility] [address] [place] [address] MCHC 32.4 G/dL Normal 32.0-36.0 [facility] Comment on above: Performed By: #### A NICOLE, HCGQ, MDW, ADIFF, CRP, CMP, CBC, GFR, ESR #### [facility] [address] [address] MCV (RBC) [Entitic vol] 77.7 fL Low 80.0-99.0 [facility] Comment on above: Performed By: #### A NICOLE, HCGQ, MDW, ADIFF, CRP, CMP, CBC, GFR, ESR #### [facility] [address] [address] Platelet 370 10 3/mcL Normal 150-450 [facility] Comment on above: Performed By: #### A NICOLE, HCGQ, MDW, ADIFF, CRP, CMP, CBC, GFR, ESR #### [place] [address] Platelet mean volume (Bld) [Entitic vol] 7.7 fL Normal 6.6-10.5 [facility] Comment on above: Performed By: #### A NICOLE, HCGQ, MDW, ADIFF, CRP, CMP, CBC, GFR, ESR #### [place] [address] RBC 4.49 10 6/mcL Normal 4.10-5.30 [facility] Comment on above: Performed By: #### A NICOLE, HCGQ, MDW, ADIFF, CRP, CMP, CBC, GFR, ESR #### [place] [address] WBC 7.9 10 3/mcL Normal 4.5-10.8 [facility] Comment on above: Performed By: #### A NICOLE, HCGQ, MDW, ADIFF, CRP, CMP, CBC, GFR, ESR #### [place] [address] CMPon 09-25-2024 Albumin Level 3.5 G/dL Normal 3.4-5.0 [facility] Comment on above: Performed By: #### A NICOLE, HCGQ, MDW, ADIFF, CRP, CMP, CBC, GFR, ESR #### [address] [place], [place] [address] Albumin/Globulin [Mass ratio] 0.8 {ratio} Low 1.1-1.8 [facility] Comment on above: Performed By: #### A NICOLE, HCGQ, MDW, ADIFF, CRP, CMP, CBC, GFR, ESR #### [facility] [address] [address] ALP [Catalytic activity/Vol] 75 U/L Normal 45-117 [facility] Comment on above: Performed By: #### A NICOLE, HCGQ, MDW, ADIFF, CRP, CMP, CBC, GFR, ESR #### [place] [address] ALT [Catalytic activity/Vol] 44 U/L Normal 12-78 [facility] Comment on above: Performed By: #### A NICOLE, HCGQ, MDW, ADIFF, CRP, CMP, CBC, GFR, ESR #### [place] [address] AST [Catalytic activity/Vol] 18 U/L Normal 15-37 [facility] Comment on above: Performed By: #### A NICOLE, HCGQ, MDW, ADIFF, CRP, CMP, CBC, GFR, ESR #### [place] [address] Bili Total 0.3 mg/dL Normal 0.2-1.0 [facility] Comment on above: Result Comment: Use of this assay is not recommended for patients undergoing treatment with eltrombopag due to the potential for falsely elevated results. Performed By: #### A NICOLE, HCGQ, MDW, ADIFF, CRP, CMP, CBC, GFR, ESR #### [place] [address] BUN/Creatinine Ratio 13.3 ratio Normal 10.0-22.0 [facility] Comment on above: Performed By: #### A NICOLE, HCGQ, MDW, ADIFF, CRP, CMP, CBC, GFR, ESR #### [place] [address] Calcium [Mass/Vol] 8.8 mg/dL Normal 8.5-10.1 [facility] Comment on above: Performed By: #### A NICOLE, WILLY, GRAY, ADIFF, CRP, CMP, CBC, GFR, ESR #### [facility] [address] [place] [address] Chloride [Moles/Vol] 111 mmol/L High 98-107 [facility] Comment on above: Performed By: #### A NICOLE, WILLY, W, ADIFF, CRP, CMP, CBC, GFR, ESR #### [facility] [address] [address] CO2 [Moles/Vol] 23 mmol/L Normal 21-32 [facility] Comment on above: Performed By: #### A NICOLE, WILLY, W, ADIFF, CRP, CMP, CBC, GFR, ESR #### [place] [address] Creatinine [Mass/Vol] 0.83 mg/dL Normal 0.55-1.02 [facility] Comment on above: Result Comment: Test ing performed on Siemens Dimension Edward analyzer using a modified kinetic Navid technique. Performed By: #### A NICOLE, WILLY, W, ADIFF, CRP, CMP, CBC, GFR, ESR #### [facility] [address] [address] Electrolyte Balance 6.0 mEq/L Normal 4.0-15.0 [facility] Comment on above: Performed By: #### A WILLY RIVERA, W, ADIFF, CRP, CMP, CBC, GFR, ESR #### [facility] [address] [place] [id number] Globulin 4.2 G/dL Normal 2.5-4.6 [facility] Comment on above: Performed By: #### A WILLY RIVERA, W, ADIFF, CRP, CMP, CBC, GFR, ESR #### [facility] [address] [address] Glucose [Mass/Vol] 93 mg/dL Normal 70-100 [facility] Comment on above: Performed By: #### A NICOLE, HCGQ, MDW, ADIFF, CRP, CMP, CBC, GFR, ESR #### [facility] [address] [place] [address] Potassium [Moles/Vol] 3.8 mmol/L Normal 3.5-5.1 [facility] Comment on above: Performed By: #### A NICOLE, HCGQ, MDW, ADIFF, CRP, CMP, CBC, GFR, ESR #### [facility] [address] [place] [address] Sodium [Moles/Vol] 140 mmol/L Normal 136-145 [facility] Comment on above: Performed By: #### A NICOLE, HCGQ, MDW, ADIFF, CRP, CMP, CBC, GFR, ESR #### [facility] [address] [address] Total Protein 7.7 G/dL Normal 6.0-8.3 [facility] Comment on above: Performed By: #### A NICOLE, HCGQ, MDW, ADIFF, CRP, CMP, CBC, GFR, ESR #### [place] [address] Urea nitrogen [Mass/Vol] 11.0 mg/dL Normal 7.0-18.0 [facility] Comment on above: Performed By: #### A NICOLE, HCGQ, MDW, ADIFF, CRP, CMP, CBC, GFR, ESR #### [place] [address] CRPon 09-25-2024 C-Reactive Protein 0.50 mg/dL High 0.00-0.30 [facility] Comment on above: Performed By: #### A NICOLE, HCGQ, MDW, ADIFF, CRP, CMP, CBC, GFR, ESR #### [place] [address] CT SOFT TISSUE NECK W/ CONTR Mary Beth 09-25-2024 CT SOFT TISSUE NECK W/ CONTRAST ORIGINAL EXAMINATION: CT OF THE NECK SOFT TISSUE WITH CONTRAST 09/25/2024 TECHNIQUE: CT of the neck was performed with the administration of intravenous contrast. Multiplanar reformatted images are provided for review. Automated exposure control, iterative reconstruction, and/or weight based adjustment of the mA/kV was utilized to reduce the radiation dose to as low as reasonably achievable. COMPARISON: None. HISTORY: ORDERING SYSTEM PROVIDED HISTORY: Reason for Exam: pain or difficulty swallowing pain or difficulty swallowing FINDINGS: Visualized intracranial structures are grossly within normal limits. Intraorbital structures are grossly within normal limits. There is mild enlargement of the adenoid, palatine, lingual tonsils. There is no evidence of tonsillar/peritonsillar abscess. Epiglottis is normal in thickness. There interval vestibules patent. The vocal cords are grossly symmetric. Thyroid gland is normal size. Trachea is patent. Esophagus is normal in caliber. Bilateral parotid glands, submandibular glands, and sublingual glands, are grossly normal in morphology. Bilateral carotid and jugular vasculature are grossly patent. There are mildly enlarged cervical nodes which may be reactive. LUNG APICES/SUPERIOR MEDIASTINUM: No focal consolidation is seen within the visualized lung apices. No superior mediastinal lymphadenopathy or mass. The visualized portion of the trachea appears unremarkable. BONES: No aggressive appearing lytic or blastic bony lesion. IMPRESSION: 1. Mild enlargement of the adenoid, palatine, and lingual tonsils without evidence of tonsillar/peritonsillar abscess. No evidence of epiglottitis. Aerodigestive tract is patent. 2. Mildly enlarged cervical nodes may be reactive. Interpreted by: Alexy Pickering Preliminary Report By: Alexy Pickering Electronically signed By Alexy Pickering Dictated Date: 09/25/2024 9:10:05 PM Prelim Date: 09/25/2024 9:26:30 PM Sign Date: 09/25/2024 9:26:30 PM Ordering Provider: IVAN GUERRERO Normal [facility] ESRon 09-25-2024 Erythrocyte Sed Rate 46 mm/hr High 0-20 [facility] Comment on above: Performed By: #### A NICOLE, HCGQ, MDW, ADIFF, CRP, CMP, CBC, GFR, ESR #### [facility] [address], [place] [address] HCGQon 09-25-2024 hCG, quantitative <1 Normal [facility] Comment on above: Result Comment: Jc titative hCG reference ranges: Male. . . . . . . . . . . . . . . . . .<2 mIU/mL Non females . . . . . . . . . .<6 mIU/mL females based on gestational age: 0-1 week. . . . . . . . . . . . . . . .5 - 50 mIU/mL 1-2 weeks . . . . . . . . . . . . . . .40 - 300 mIU/mL 2-3 weeks . . . . . . . . . . . . . . .100 - 1,000 mIU/ml 3-4 weeks . . . . . . . . . . . . . . .500 - 6,000 mIU/mL 1-2 months. . . . . . . . . . . . . . .5,000 - 200,000 mIU/mL 2-3 months. . . . . . . . . . . . . . .10,000 - 100,000 mIU/mL 2nd trimester . . . . . . . . . . . . .3,000 - 50,000 mIU/mL Performed By: #### A NICOLE, HCGQ, MDW, ADIFF, CRP, CMP, CBC, GFR, ESR #### [facility] [address], [place] [address] ED.PDOCon 04-30-2024 ED.PDOC NADIA BORWN Female [id number] Attending provider: PRE [facility] ER [id number] Jamie Quinones 1995 28 DOS: 04/30/24 Hx/Exam - History of Present Illness Chief Complaint: TOOTHACHE Location: Right lower molars Symptom Duration: 2-3 Symptom Duration: Day(s) Onset of Symptoms: Acute Intensity: moderate Quality: Ache Episode Frequency: constant Additional Comments: Complains of odontalgia for the past few days. Denies any fever or chills. She has not seen a dentist. - Review of Systems All Other Systems: Pertinent Positives in HPI, All Other Systems Negative - Past Medical History ED PMH: Yes Kidney Stones, Yes Seizures - Past Surgical History Surgical History: Yes Cholecystectomy, Yes - Social History Smoking Status: Never Smoker Hx Alcohol Use: No Hx Drug Use: None Living Conditions: Family - Family History Family/Social History Related to Chief Complaint: Denies - Physical Exam Other Exam Findings: Physical Exam General Appearance: awake, alert, no apparent distress Eyes: PERRL, EOMI, conjunctivae clear, no discharge, no scleral icterus Head, Ears, Nose, and Throat: TMs normal, pharynx normal, EAC normal, mucous membranes moist, nares clear, mastoid non-tender, Tenderness with percussion to the right lower molar. No fluctuance or induration noted within the bucca mucosa fold. No trismus. No evidence of Victoriano's angina no cellulitis. Neck: supple, non-tender, no stridor, no masses, no bony tenderness, full ROM Respiratory: lungs clear, no wheezes/rhonchi/rales, no respiratory distress, no accessory muscle use, chest non-tender Cardiovascular: regular rate, rhythm, no murmur Abdomen/GI: non tender, soft, non-distended, normal bowel sounds, no organomegaly, no pulsatile mass, no peritoneal signs Back: no CVA tenderness, no vertebral tenderness, normal ROM, non tender Extremity: normal range of motion, non-tender, normal inspection, no pedal edema, no calf tenderness Neurologic: no motor/sensory deficits, normal gait, normal strength, normal sensation, speech clear/fluent, cia agent II-XII intact Psychiatric: oriented x3, calm, normal affect Skin Exam: warm/dry, normal color - Source of History Source of History: Nursing Notes/Vital Signs/Triage Reviewed and Agree Source of History: Additional Hx from Relatives Note(s) - Physician Notes Additional Notes, See Orders for Details: 04/30/24 13:03 MEDICAL DECISION MAKING Number and Complexity of Problems Differential Diagnosis: [X]-Dental pain, dental infection, apical abscess, Victoriano's angina MDM Data External documents reviewed: [X]-records reviewed and nothing relevant to todays visit My EKG Interpretation: [See Note if applicable] My CT Interpretation: [Interpreted by radiology if applicable] My X-ray Interpretation: [Interpreted by radiology if applicable] My Ultrasound Interpretation: [Interpreted by radiology if applicable] Decision rules/scored evaluated: [] Tests considered but not ordered: [] Discussed with: [] Treatment and Disposition ED Course: [X]-see below Shared decision making: [X]-patient and or parent/Guardian agreeable with treatment plan Social determinants: [X]-none Code status: [X]-full Placed on clindamycin and referred to dentistry. Discharged home Return if worse EKG - EKG EKG Interpretation: Not Applicable Discharge Screen - Discharge Discharge Problem: Dental infection Disposition: HOME/SELF CARE Condition: Stable Instructions: DI for Tooth Abscess Forms: DENTAL SERVICES, DENTAL SERVICES, CONT Prescriptions: Clindamycin HCl [Cleocin] 300 mg PO TID #60 cap Transmission Status: Pending to [id number] Diclofenac Sodium [Diclofenac Sodium Dr] 75 mg PO BID #20 tab Oxycodone W/ APAP 5-325 mg [Percocet 5 mg/325 mg Ud] 1 tab PO Q6H PRN PRN 3 Days #10 tab PRN Reason: Transmission Status: Sent to [facility] Referrals: Call,On [Primary Care Provider] - Dictated By: REGINA BURNS Dictated Date/Time:04/30/24 1257 Electronically Signed Date/Time: 04/30/24 1306 [facility] Consult-Ophthalmologyon 04- Consult-Ophthalmology Service: Service: Ophthalmology History of Present Illness: HPI: NADIA BROWN is a 26 year old Female Allergies: No Known Allergies: Assessment: HPI: 26 yo F w/ PMHx of seizures, anxiety, depression bipolar, PTSD, asthma and COPD presents to the ED after falling in the shower with suspected recurrent seizure activity. Patient is originally from [place] and living in [place]. Was told by neurologist plan was to wean off lamictal anti-seizure medication. Per patinet she was in the shower when she experienced loss of consciousness with suspected recurrent seizure and she has been off medication for >1 week. Patient hit her left eye on the corner of the countertop and base with eyebrow laceration. Noted swelling of the eye. Denies change in vision. Was experiencing some mild diplopia initially but since edema has made it difficult to open the eye. Denies flashes of light, floaters. Pain is currently descibed as 9/10. Has pain with EOM looking superiorly. Denies n/v. PMH: per HPI Allergies: allergy list reviewed Past Ocular Hx: Spectacles/Astigmatism ROS: negative in all 14 systems except for those listed in HPI Medications: the list in the system reviewed NVA (w/o correction) OD 20/20 OS 20/40 PH 20/25 Pupils 4-2 mm OD, 6->4 OS, round OU, no RAPD by reverse IOP (tonopen) OD 12 OS 15 Visual gorman: Full to count fingers OD, limited by eyelid edema OS Extra ocular movements intact OD, OS limited supraduction (-2) and infraduction (-1) Color Vision: 09/18 Ishihara plates OU Anterior segment examination OD Lids and lashes: normal Conjunctiva: white and quiet Cornea Clear Iris flat AC Deep and quiet Lens: Clear OS Lids and lashes: diffuse superiorly and inferior periorbital and eyelid edema, with ecchymoses, eye is only minimally open, sutured eyebrow laceration Conjunctiva: 2+ hemorrhagic chemosis extending from 1 o'clock to 11 o'clock, roberto negative Cornea: clear, small island of staining centrally Iris flat, no hyphema AC: 2+ AC cell Lens: Clear Dilated both eyes with phenylephrine 2.5% tropicamide 1% per dilation protocol Cycloplegic and dilation effects should improve in 4-6 hours but can last up to 24 hours. Will return to complete dilated fundus exam. Dilated fundus examination OD C/D: 0.2, sharp, no edema Vitreous: Clear Macula: Good reflex Vessels: Normal caliber Periphery: no tears breaks or holes, no evidence of retinal hemorrhages OS C/D: 0.2, sharp, no edema, discrete inferior peripapillary hemorrhage Vitreous: Clear, no hemorrhage, good visibility Macula: Good reflex Vessels: Normal caliber Periphery: no tears breaks or holes, diffuse peripheral commotio, with temporal hemorrhages in far periphery Assessment/Plan: #Left Periorbital Edema #Left Eye Subconjunctival Hemorrhage #Left Eye Traumatic Iritis - had long discussion with patient regarding importance of f/u - per patient she is leaving [facility] and going to [place] for the fairs on Wednesday and will not be able to f/u in clinic in [place] until April - patient is uncertain whether or not she can f/u with an tax services intern as she will be fired from her job if she does not attend and then she could not pay for her apartment - discussed with patient that management of iritis typically requires close f/u wihtin the week - understands that without 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/u 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 of 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 prednisolone, 4//2 for 1 week each then stop altogether, with cyclopentolate 1% TID - recommend using ice packs to area of edema and ecchymoses for 20 minutes every 1-2 hours #Left Eye Peripapillary Retinal Hemorrhages #Left Eye Peripheral Retinal Hemorrhages #Left Eye Commotio Retinae - discussed retinal findings with patient and need for close f/u as above - patient suspects she will be unable to f/u - counselled that this could 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 Discussed with Dr. Fidel Liu, PGY4 Daniel Montenegro MD Ophthalmology PGY-2 Note is not final until signed by attending physician Ophthalmology Adult Pager - [phone] Ophthalmology Pediatrics Pager - [phone] For adult follow-up appointments, call: [phone] For pediatric follow-up appointments, call: [phone] Attestation: Note Completion: I am a: Resident/Fellow Attending AttestationI saw and evaluated the patient. I personally obtained the piper and critical portions of the history and (more content not included)... Normal [facility] Provider Note - ED Care Cerda pito 02-21-2022 Provider Note - ED Care Transition ED Care Transition: Chart Review: ED NOTES ED NOTES: Patient was signed out to me. She is a young female with a history of epilepsy presenting to the emergency department for seizure with positive head strike and ophthalmologic injuries. CT head negative for evidence of acute intracranial bleeding. Ophthalmology consulted, and she was diagnosed with traumatic iritis, along with retinal hemorrhages. Did recommend cyclopentolate and prednisolone eyedrops which were prescribed. Patient has been tapered on her Lamictal, but she will be prescribed this as she did have a breakthrough seizure during tapering of her Lamictal dosages. She will be discharged home in stable condition. Giovanni Jaffe MD Emergency Medicine PGY-3 [facility] CLINICAL IMPRESSION Diagnosis/Annotation: ED Dx Name:Seizure Code:R56.9 Name:Eyelid laceration Code:S01.119A Disposition: discharged ATTESTATION Attestation: I saw and evaluated the patient. I personally obtained the piper and critical portions of the history and physical exam or was physically present for piper and critical portions performed by the resident/fellow. I reviewed the resident/fellows documentation and discussed the patient with the resident/fellow. I agree with the resident/fellows medical decision making as documented in the residents note CRITICAL CARE TIME Is this a critically ill patient: no Electronic Signatures: Antwon Jaffe (Resident)) (Signed 21-Feb-2022 00:06) Authored: ED Notes, Clinical Impression, Attestation, Chart Review, Scores Peter Westbrook) (Signed 21-Feb-2022 17:35) Authored: Attestation, Chart Review Co-Signer: ED Notes, Clinical Impression, Attestation, Chart Review, Scores Last Updated: 21-Feb-2022 17:35 by Peter Westbrook) Normal [facility] CBC AND DIFFERENTIALon 02-20 % AUTOMATED IMMATURE GRAN 0.3 % Normal 0.0 - 0.9 [facility] Comment on above: Result Comment: Nanci ture Granulocyte Count (IG) includes promyelocytes, myelocytes and metamyelocytes but does not include bands. Percent differential counts (%) should be interpreted in the context of the absolute cell counts (cells/L). Performed By: #### C BCDF #### [facility] [address] [place] [address] Basophils (Bld) [#/Vol] 0.03 10*3/uL Normal 0.00 - 0.10 [facility] Comment on above: Performed By: #### C BCDF #### [facility] [address] [place] [address] Basophils/100 WBC (Bld) 0.3 % Normal 0.0 - 2.0 [facility] Comment on above: Performed By: #### C BCDF #### [facility] [address] [place] [address] Eosinophils (Bld) [#/Vol] 0.03 10*3/uL Normal 0.00 - 0.70 [facility] Comment on above: Performed By: #### C BCDF #### [facility] [address] [place] [address] Eosinophils/100 WBC (Bld) 0.3 % Normal 0.0 - 6.0 [facility] Comment on above: Performed By: #### C BCDF #### [facility] [address] [place] [address] Erythrocyte distribution width (RBC) [Ratio] 13.5 % Normal 11.5 - 14.5 [facility] Comment on above: Performed By: #### C BCDF #### [facility] [address] [place] [address] Hematocrit (Bld) [Volume fraction] 37.2 % Normal 36.0 - 46.0 [facility] Comment on above: Performed By: #### C BCDF #### [facility] [address] [place] [address] Hemoglobin (Bld) [Mass/Vol] 12.9 g/dL Normal 12.0 - 16.0 [facility] Comment on above: Performed By: #### C BCDF #### [facility] [address] [place] [address] Lymphocytes (Bld) [#/Vol] 1.41 10*3/uL Normal 1.20 - 4.80 [facility] Comment on above: Performed By: #### C BCDF #### [facility] [address] [place] [address] Lymphocytes/100 WBC (Bld) 13.2 % Normal 13.0 - 44.0 [facility] Center Comment on above: Performed By: #### C BCDF #### [facility] [id number] [place] [address] MCHC (RBC) [Mass/Vol] 34.7 g/dL Normal 32.0 - 36.0 [facility] Comment on above: Performed By: #### C BCDF #### [facility] [address] [place] [address] MCV (RBC) [Entitic vol] 85 fL Normal 80 - 100 [facility] Comment on above: Performed By: #### C BCDF #### [facility] [address] [place] [address] Monocytes (Bld) [#/Vol] 0.46 10*3/uL Normal 0.10 - 1.00 [facility] Comment on above: Performed By: #### C BCDF #### [facility] [address] [place] [address] Monocytes/100 WBC (Bld) 4.3 % Normal 2.0 - 10.0 [facility] Comment on above: Performed By: #### C BCDF #### [facility] [address] [place] [address] Neutrophils (Bld) [#/Vol] 8.74 10*3/uL High 1.20 - 7.70 [facility] Comment on above: Performed By: #### C BCDF #### [facility] [address] [place] [address] Neutrophils/100 WBC (Bld) 81.6 % Normal 40.0 - 80.0 [facility] Comment on above: Performed By: #### C BCDF #### [facility] [address] [place] [address] NUCLEATED RBC 0.0 /100 WBC Normal 0.0-0.0 [facility] Comment on above: Performed By: #### C BCDF #### [facility] [address] [place] [address] Platelets (Bld) [#/Vol] 349 10*3/uL Normal 150 - 450 [facility] Comment on above: Performed By: #### C BCDF #### [facility] [address] [place] [address] RBC 4.38 x10E12/L Normal 4.00 - 5.20 [facility] Comment on above: Performed By: #### C BCDF #### [facility] [address] [place] [address] WBC (Bld) [#/Vol] 10.7 10*3/uL Normal 4.4 - 11.3 [facility] Comment on above: Performed By: #### C BCDF #### [facility] [address] [place] [address] CT IMAGE RECONSTRUCTION 3D V OLUME and MIPon 02-20-2022 CT IMAGE RECONSTRUCTION 3D VOLUME and MIP Patient Name: NADIA BROWN STUDY: CT HEAD WO CONTRAST; CT FACIAL BONES; 02/20/2022 8:31 pm INDICATION: sz. hit head, Lie Flat: Yes . COMPARISON: None. ACCESSION NUMBER(S): [id number]; [id number] ORDERING CLINICIAN: ROBERT JERNIGAN TECHNIQUE: Noncontrast axial CT scan of head was performed. Angled reformats in brain and bone windows were generated. The images were reviewed in bone, brain, blood and soft tissue windows. Thin cut axial CT images through the facial bones were obtained and reconstructed in the coronal and sagittal plane. 3D reconstructions were performed utilizing an independent workstation and submitted for review. FINDINGS: CSF Spaces: The ventricles and sulci are within normal limits. The basal cisterns are patent without effacement. There is no extraaxial fluid collection. Parenchyma: The reynoso-white differentiation is intact. There is no mass effect or midline shift. There is no intracranial hemorrhage. Orbits: The bony orbits are intact. The orbital contents are unremarkable. Facial Bones: There is no displaced facial bone fracture. Mandible/Temporomandibula r Joints: Visualized portions of mandible and bilateral temporomandibular joints are intact. Paranasal Sinuses/Mastoids: Mild mucosal thickening within the left sphenoidal sinus. Remainder of the paranasal sinuses and mastoid air cells are clear. Soft tissues: Mild swelling in the left preseptal supraorbital soft tissues with tiny focus of subcutaneous air, likely laceration. IMPRESSION: 1. No evidence of acute cortical infarct or intracranial hemorrhage. 2. Small left preseptal supraorbital hematoma and laceration without underlying skull fracture. No displaced skull fractures visualized. I personally reviewed the images/study and I agree with the findings as stated. This study was interpreted at [facility], [place], [place]. Electronically signed by: MIGUEL PAULINO MD Normal [facility] Electrocardiogram 12 Leadon 02-20-2022 Electrocardiogram 12 Lead Ventricular Rate 56 Atrial Rate 56 P-R Interval 168 QRS Duration 94 Q-T Interval 398 QTC Calculation(Bazett) 384 P Rudy 7 R Rudy 50 T Rudy 45 QRS Count 9 Q Onset 219 P Onset 135 P Offset 190 T Offset 418 QTC Fredericia 389 Diagnosis Class Normal Diagnosis Please see ED Provider Note for formal interpretation Confirmed by ALBAN VARGAS PA-C ([id number]) on 02/21/2022 1:57:12 AM Normal [facility] GLUCOSE-POCTon 02-20-2022 Glucose [Mass/Vol] 115 mg/dL High 74 - 99 [facility] Comment on above: Performed By: #### G WHITNEY #### [facility] [address] [place] [address] LAMOTRIGINE- LAMICTALon 02-06 LAMOTRIGINE- LAMICTAL <1.0 Abnormal 2.5 - 15.0 [facility] Comment on above: Performed By: #### L AMOT #### [facility] [address] [place] [address] C-SPINE WO CONTRASTon 02-20-[address] C-SPINE WO CONTRAST Patient Name: NADIA BROWN STUDY: CT C-SPINE WO CONTRAST; 02/20/2022 8:31 pm INDICATION: sz. hit head, Lie Flat: Yes . COMPARISON: None. ACCESSION NUMBER(S): [id number] ORDERING CLINICIAN: ROBERT JERNIGAN TECHNIQUE: Axial CT images of the cervical spine are obtained. Axial, coronal and sagittal reconstructions are provided for review. FINDINGS: There are 7 cervical vertebrae. C-collar in place. Fractures: There is no evidence for an acute fracture of the cervical spine. Vertebral Alignment: Straightening of the normal cervical lordosis, likely from the C-collar. Craniocervical Junction: The odontoid process and craniocervical junction are intact. Vertebrae/Disc Spaces: The cervical vertebral body heights are intact and the disc spaces are preserved. Prevertebral/Paraspinal Soft Tissues: The prevertebral and paraspinal soft tissues are unremarkable. IMPRESSION: No evidence for an acute fracture or subluxation of the cervical spine. I personally reviewed the images/study and I agree with the findings as stated. This study was interpreted at [facility], [place], [place]. Electronically signed by: MIGUEL PAULINO MD Normal [facility] NR CT FACIAL BONES W/O CONTR Mary Beth 02-20-[address] FACIAL BONES W/O CONTRAST Patient Name: NADIA BROWN STUDY: CT HEAD WO CONTRAST; CT FACIAL BONES; 02/20/2022 8:31 pm INDICATION: sz. hit head, Lie Flat: Yes . COMPARISON: None. ACCESSION NUMBER(S): [id number]; [id number] ORDERING CLINICIAN: ROBERT JERNIGAN TECHNIQUE: Noncontrast axial CT scan of head was performed. Angled reformats in brain and bone windows were generated. The images were reviewed in bone, brain, blood and soft tissue windows. Thin cut axial CT images through the facial bones were obtained and reconstructed in the coronal and sagittal plane. 3D reconstructions were performed utilizing an independent workstation and submitted for review. FINDINGS: CSF Spaces: The ventricles and sulci are within normal limits. The basal cisterns are patent without effacement. There is no extraaxial fluid collection. Parenchyma: The reynoso-white differentiation is intact. There is no mass effect or midline shift. There is no intracranial hemorrhage. Orbits: The bony orbits are intact. The orbital contents are unremarkable. Facial Bones: There is no displaced facial bone fracture. Mandible/Temporomandibula r Joints: Visualized portions of mandible and bilateral temporomandibular joints are intact. Paranasal Sinuses/Mastoids: Mild mucosal thickening within the left sphenoidal sinus. Remainder of the paranasal sinuses and mastoid air cells are clear. Soft tissues: Mild swelling in the left preseptal supraorbital soft tissues with tiny focus of subcutaneous air, likely laceration. IMPRESSION: 1. No evidence of acute cortical infarct or intracranial hemorrhage. 2. Small left preseptal supraorbital hematoma and laceration without underlying skull fracture. No displaced skull fractures visualized. I personally reviewed the images/study and I agree with the findings as stated. This study was interpreted at [facility], [place], [place]. Electronically signed by: MIGUEL PAULINO MD [facility] NR CT HEAD WO CONTRASTon NR CT HEAD WO CONTRAST Patient Name: NADIA BROWN STUDY: CT HEAD WO CONTRAST; CT FACIAL BONES; 02/20/2022 8:31 pm INDICATION: sz. hit head, Lie Flat: Yes . COMPARISON: None. ACCESSION NUMBER(S): [id number]; [id number] ORDERING CLINICIAN: ROBERT JERNIGAN TECHNIQUE: Noncontrast axial CT scan of head was performed. Angled reformats in brain and bone windows were generated. The images were reviewed in bone, brain, blood and soft tissue windows. Thin cut axial CT images through the facial bones were obtained and reconstructed in the coronal and sagittal plane. 3D reconstructions were performed utilizing an independent workstation and submitted for review. FINDINGS: CSF Spaces: The ventricles and sulci are within normal limits. The basal cisterns are patent without effacement. There is no extraaxial fluid collection. Parenchyma: The reynoso-white differentiation is intact. There is no mass effect or midline shift. There is no intracranial hemorrhage. Orbits: The bony orbits are intact. The orbital contents are unremarkable. Facial Bones: There is no displaced facial bone fracture. Mandible/Temporomandibula r Joints: Visualized portions of mandible and bilateral temporomandibular joints are intact. Paranasal Sinuses/Mastoids: Mild mucosal thickening within the left sphenoidal sinus. Remainder of the paranasal sinuses and mastoid air cells are clear. Soft tissues: Mild swelling in the left preseptal supraorbital soft tissues with tiny focus of subcutaneous air, likely laceration. IMPRESSION: 1. No evidence of acute cortical infarct or intracranial hemorrhage. 2. Small left preseptal supraorbital hematoma and laceration without underlying skull fracture. No displaced skull fractures visualized. I personally reviewed the images/study and I agree with the findings as stated. This study was interpreted at [place], [place]. Electronically signed by: MIGUEL PAULINO MD [facility] Provider Note - ED v3on 02-06 Provider Note - ED v3 Provider Note: Chart Review: ED NOTES ED NOTES: cc: seizure hpi: Patient is a 26 y/o female with a PMH of seizures, anxiety, depression bipolar, PTSD, asthma and COPD presents to the ED after falling in her showed after a seizure. She states she hit her head and woke up in the bathroom on the floor and then called EMS. She is unable to tell how long she was unconscious. She states her neurologist had requested her to ween off her Lamictal. She has not taken this medicating in 1 week. She states she has not had a seizure since 2014. She endorses a history of grand mal seizures. She also complains of headache, neck pain and eye pain with double vision and significant nausea. She denies chest pain, SOB, back pain, extremity pain, weakness, numbness or tingling, she denies any recent illnesses. This episode was not witnessed. She denies any tongue biting. She believes her last tetanus shot was approximately 2 years ago. PMH: Seizures, anxiety, depression, PTSD, asthma, COPD, CVA PSH: Reviewed in EMR Allergies: No known drug allergies Social history: Denies tobacco, alcohol, occasional marijuana use Medications: Was previously on Lamictal 100 mg twice daily Physical Exam: Appearance: Alert, oriented , cooperative, in no acute distress. Well nourished & well hydrated. Skin: Intact, dry skin, no lesions, rash, petechiae or purpura. Eyes: Right eyes PERRL. Left pupil is reactive to light, however less so than the right eye. EOMs intact however with pain, exam of right hydration unremarkable with pink conjunctiva. Exam of the left eye shows significant chemosis of the eye, Eyelids without lesions, however there is ecchymosis noted to the left eyelid. No scleral icterus. EHNT: Hearing grossly intact. 3 cm linear laceration inferior to the left eyebrow. Ecchymosis noted to the left eyelid with soft tissue swelling in place. Nares patent, mucus membranes moist. Dentition without lesions. Pharynx clear, uvula midline. Tenderness palpation of around the left orbit. Neck: Supple, without meningismus. Midline C-spine tenderness palpation. No obvious deformity or step-offs. Pulmonary: Good air exchange. Lungs clear bilaterally with good chest wall excursion. No rales, rhonchi or wheezing. No accessory muscle use or stridor. Cardiac: Regular Rate and Rhythm. Normal S1, S2 without murmur, rub, gallop or extrasystole. Abdomen: Soft, nontender, active bowel sounds. No palpable organomegaly. No rebound or guarding. No CVA tenderness. Back: No midline or paraspinal T or L-spine tenderness palpation. No obvious deformity or step-off. Musculoskeletal: Full range of motion. no pain or deformity. Pulses full and equal. No cyanosis, clubbing, or edema. Neurological: Cranial nerves II through XII are grossly intact, normal sensation, no weakness, no focal findings identified. Psychiatric: Appropriate mood and affect. MDM: This is a 26-year-old female with past medical history of seizures who had a suspected seizure prior to arrival to the ED. Patient is endorsing a headache, neck pain, eye pain as well as having a laceration of her left eye and double vision. Vitals were stable upon arrival to the ED. On physical examination patient neurologically intact without any deficits. She does have some midline C-spine tenderness palpation so she was placed in a c-collar. No midline T or L-spine tenderness. She had tenderness palpation around her left orbit as well as ecchymosis present to her left eyelid and soft tissue swelling present. There is also a 3 cm superficial laceration inferior to the left eyebrow with no active bleeding at this time. The left eye was relaxing slight, however less so than the right eye. There is also significant chemosis to the left eye. Patient initially had significant pain and nausea and was given morphine as well as Zofran. She was placed on seizure precautions. She was given 200 mg of Lamictal as she is likely subtherapeutic as she has not taken this medication in the past 1 week. IV was established and lab work obtained including CBC, venous full panel, renal function panel as well as a Lamictal level. CT head, C-spine, and face were ordered. Due to the abnormalities with her left eye and her double vision ophthalmology was consulted. CT scans did not show any acute fracture or dislocation. Patient's laceration was repaired, see separate procedure note for further details, and on reevaluation she was feeling improved. Ophthalmology did evaluate this patient at bedside. Patient was handed off to oncoming team pending ophthalmology recommendations with plan for the patient to go home on her 100 mg of Lamictal twice daily. HISTORY OF PRESENTING ILLNESS NADIA is a 26 year old Female and was seen by me at 20-Feb-2022 18:33 for a chief complaint of seizures . Triage Information: Most recent Vital Sign Value Calvin (more content not included)... Normal [facility] RENAL FUNCTION PANELon 02-20 Albumin [Mass/Vol] 4.3 g/dL Normal 3.4 - 5.0 [facility] Comment on above: Performed By: #### R ENAL ####[id number] [place] [address] Anion gap [Moles/Vol] 12 mmol/L Normal 10 - 20 [facility] Comment on above: Performed By: #### R ENAL ####[id number] [place] [address] Calcium [Mass/Vol] 9.8 mg/dL Normal 8.6 - 10.6 [facility] Comment on above: Performed By: #### R ENAL ####[id number] [place] [address] Chloride [Moles/Vol] 107 mmol/L Normal 98 - 107 [facility] Comment on above: Performed By: #### R ENAL ####[id number] [place] [address] Creatinine [Mass/Vol] 0.82 mg/dL Normal 0.50 - 1.05 [facility] Comment on above: Performed By: #### R ENAL ####[id number] [place] [address] eGFR FEMALE >90 Normal >90 [facility] Comment on above: Result Comment: CALC ULATIONS OF ESTIMATED GFR ARE PERFORMED USING THE 2020 CKD-EPI STUDY REFIT EQUATION WITHOUT THE RACE VARIABLE FOR THE IDMS-TRACEABLE CREATININE METHODS. https://jasn.asnjournals.org/content/early//ASN.720374 9365 Performed By: #### R ENAL ####[id number] [place] [address] Glucose [Mass/Vol] 103 mg/dL High 74 - 99 [facility] Comment on above: Performed By: #### R ENAL ####[id number] [place] [address] HCO3 (Bld) [Moles/Vol] 23 mmol/L Normal 21 - 32 [facility] Comment on above: Performed By: #### R ENAL ####[id number] [place] [address] Phosphate [Mass/Vol] 2.7 mg/dL Normal 2.5 - 4.9 [facility] Comment on above: Result Comment: The performance characteristics of phosphorus testing in heparinized plasma have been validated by the individual laboratory site where testing is performed. Testing on heparinized plasma is not approved by the FDA; however, such approval is not necessary. Performed By: #### R ENAL ####[id number] [place] [address] Potassium [Moles/Vol] 4.0 mmol/L Normal 3.5 - 5.3 [facility] Comment on above: Performed By: #### R ENAL ####[id number] [place] [address] Sodium [Moles/Vol] 138 mmol/L Normal 136 - 145 [facility] Comment on above: Performed By: #### R ENAL ####[id number] [place] [address] Urea nitrogen [Mass/Vol] 9 mg/dL Normal 6 - 23 [facility] Comment on above: Performed By: #### R ENAL ####[id number] [place] [address] Triage - EDon 02-20-2022 Triage - ED Quick Triage: Are You no Are You Currently Breastfeedingno Chart Review: ARRIVAL INFORMATION Mode of Arrival: ambulance Agency Name: [facility] CHIEF COMPLAINT NADIA BROWN is a Female patient with a chief complaint of seizures. Triage Date/Time: 20-Feb-2022 18:32 BETZAIDA: 3 Vital Signs: Temperature: 98.4F ( 36.8C) Blood Pressure: 127/89 Mean: Heart Rate: 62 Respiratory Rate: 16 Pulse Oximetry: 97% on room air, no respiratory support. Height: 5 feet 4.00 inches. 162.5 CM Weight: 234.3 pounds. Calculated 106.3 kg. (stated) Calculated BMI (kg/m2): 40.255 Calculated BSA (m2) 2.19 Patient has homicidal thoughts: no Last Known Well: unknown Risk Screens Suicide Risk Screen In the Past Month: Have you wished you were or wished you could go to sleep and not wake up no In the Past Month: Have you had any actual thoughts of killing yourself no In Your Lifetime: Have you ever done anything, started to do anything, or prepared to do anything to end your life no Griems Fall Scale Screening Has the patient fallen before (or is the patient in the ED as a result of a fall) has had a fall Does the patient have an impaired gait does not have impaired gait Is the patient cognitively impaired not cognitively impaired Grimes Fall Scale History of falling (immediate or previous) yes (25) Secondary Diagnosis yes (15) Intravenous Therapy/ Heparin/Saline Lock yes (20) Gait/Transferring weak (10) Ambulatory Aids none/bedrest/nurse assist (0) Mental Status oriented to own ability (0) Grimes Fall Risk Score: 70 Interventions: Grimes Fall Interventions: HIGH INTERVENTIONS *Low and Moderate Interventions Plus: * supervised toileting at all times TRAVEL HISTORY Travel History Coronavirus Screening: no exposure or symptoms Travel Exposure History: NO travel to International locations in the past 30 days PAIN Pain Scale Used: DANA Past Medical History: Past Medical History Reviewedyes Electronic Signatures: Julieta Treadwell (RN) (Signed 20-Feb-2022 18:34) Entered: Risk Screens, Pain, Travel History, Chart Review, Scores, Past Medical History Authored: Quick Triage, Risk Screens, Pain, Travel History, Chart Review, Scores, Past Medical History Last Updated: 20-Feb-2022 18:34 by Julieta Treadwell (BRANDON) Normal [facility] VENOUS FULL PANELon 02-21-20 Anion gap [Moles/Vol] 13 mmol/L Normal 10 - 25 [facility] Comment on above: Performed By: #### V FPA4 ####[id number] [place] [address] BASE EXCESS-BLOOD -1.3 mmol/L Normal -2.0 - 3.0 [facility] Comment on above: Performed By: #### V FPA4 ####[id number] [place] [address] BICARB, CALCULATED 22.7 mmol/L Normal 22.0 - 26.0 [facility] Comment on above: Performed By: #### V FPA4 ####[id number] [place] [address] CALCIUM,IONIZED 1.22 mmol/L Normal 1.10 - 1.33 [facility] Comment on above: Performed By: #### V FPA4 ####[id number] [place] [address] Chloride [Moles/Vol] 107 mmol/L Normal 98 - 107 [facility] Comment on above: Performed By: #### V FPA4 ####[id number] [place] [address] Glucose [Mass/Vol] 108 mg/dL High 74 - 99 [facility] Comment on above: Performed By: #### V FPA4 ####[id number] [place] [address] Hematocrit (Bld) [Volume fraction] 39.0 % Normal 36.0 - 46.0 [facility] Comment on above: Performed By: #### V FPA4 ####[id number] [place] [address] Hemoglobin (Bld) [Mass/Vol] 13.1 g/dL Normal 12.0 - 16.0 [facility] Comment on above: Performed By: #### V FPA4 ####[id number] [place] [address] Lactate [Moles/Vol] 1.1 mmol/L Normal 0.4 - 2.0 [facility] Comment on above: Performed By: #### V FPA4 ####[id number] [place] [address] OXY HGB 81.8 % High 45.0 - 75.0 [facility] Comment on above: Performed By: #### V FPA4 ####[id number] [place] [address] Oxygen (Bld) [Partial pressure] 49 mm[Hg] High 35 - 45 [facility] Comment on above: Performed By: #### V FPA4 ####[id number] [place] [address] PATIENT TEMPERATURE 37.0 degrees C Normal U [facility] Comment on above: Result Comment: NOTE : PATIENT RESULTS ARE NOT CORRECTED FOR TEMPERATURE. Performed By: #### V FPA4 ####[id number] [place] [address] PCO2 35 mmHg Low 41 - 51 [facility] Comment on above: Performed By: #### V FPA4 ####[id number] [place] [address] pH (Bld) 7.42 [pH] Normal 7.33 - 7.43 [facility] Comment on above: Performed By: #### V FPA4 ####[id number] [place] [address] Potassium [Moles/Vol] 3.9 mmol/L Normal 3.5 - 5.3 [facility] Comment on above: Performed By: #### V FPA4 ####[id number] [place] [address] SO2 83 % High 45 - 75 [facility] Comment on above: Performed By: #### V FPA4 ####[id number] [place] [address] Sodium [Moles/Vol] 139 mmol/L Normal 136 - 145 [facility] Comment on above: Performed By: #### V FPA4 ####[id number] [place] [address] .Auto Diffon 02-10-2021 Ammonia (P) [Mass/Vol] 0.60 10 3/mcL Normal 0.15-1.00 [facility] ([place]) Comment on above: Performed By: #### A DIFF, ANEU, CBC #### [address] [address] #### GFR, LIPID, A1C, BMP #### [address] [address] Basophils (Bld) [#/Vol] 0.00 10 3/mcL Normal 0.00-0.19 [facility] ([place]) Comment on above: Performed By: #### A DIFF, ANEU, CBC #### [address] [address] #### GFR, LIPID, A1C, BMP #### [address] [address] Basophils/100 WBC (Bld) 0.4 % Normal 0.0-2.5 [facility] ([place]) Comment on above: Performed By: #### A DIFF, ANEU, CBC #### [place] [address] #### GFR, LIPID, A1C, BMP #### [address] [address] Eosinophils (Bld) [#/Vol] 0.10 10 3/mcL Normal 0.00-0.40 [facility] ([place]) Comment on above: Performed By: #### A DIFF, ANEU, CBC #### [place] [address] #### GFR, LIPID, A1C, BMP #### [address] [address] Eosinophils/100 WBC (Bld) 1.0 % Normal 0.0-7.0 [facility] ([place]) Comment on above: Performed By: #### A DIFF, ANEU, CBC #### [place] [address] #### GFR, LIPID, A1C, BMP #### [address] [address] Lymphocytes (Bld) [#/Vol] 2.20 10 3/mcL Normal 0.77-3.85 [facility] ([place]) Comment on above: Performed By: #### A DIFF, ANEU, CBC #### [place] [address] #### GFR, LIPID, A1C, BMP #### [address] [address] Lymphocytes/100 WBC (Bld) 31.2 % Normal 10.0-50.0 [facility] ([place]) Comment on above: Performed By: #### A DIFF, ANEU, CBC #### [place] [address] #### GFR, LIPID, A1C, BMP #### [address] [address] Monocytes/100 WBC (Bld) 8.2 % Normal 1.7-13.0 [facility] ([place]) Comment on above: Performed By: #### A DIFF, ANEU, CBC #### [address] [address] #### GFR, LIPID, A1C, BMP #### [address] [address] Neutrophils/100 WBC (Bld) 59.2 % Normal 37.0-80.0 [facility] ([place]) Comment on above: Performed By: #### A DIFF, ANEU, CBC #### [address] [address] #### GFR, LIPID, A1C, BMP #### [address] [address] .GFRon 02-10-2021 GFR Non- 81 ml/min/1.73sqm Normal [facility] ([place]) Comment on above: Result Comment: GFR Population mean for , Non- Americans Ages 20-29 = 116 mL/min/1.73 sq.m. Ages 30-39 = 107 mL/min/1.73 sq.m. Ages 40-49 = 99 mL/min/1.73 sq.m. Ages 50-59 = 93 mL/min/1.73 sq.m. Ages 60-69 = 85 mL/min/1.73 sq.m. Ages 70+ = 75 mL/min/1.73 sq.m. Chronic Kidney Disease: Less than 60 mL/min/1.73 square meters End Stage Renal Disease: Less than 15 mL/min/1.73 square meters Performed By: #### A DIFF, ANEU, CBC #### [address] [address] #### GFR, LIPID, A1C, BMP #### [address] [address] GFR 99 ml/min/1.73sqm Normal [facility] ([place] Comment on above: Result Comment: GFR Population mean for , Non- Americans Ages 20-29 = 116 mL/min/1.73 sq.m. Ages 30-39 = 107 mL/min/1.73 sq.m. Ages 40-49 = 99 mL/min/1.73 sq.m. Ages 50-59 = 93 mL/min/1.73 sq.m. Ages 60-69 = 85 mL/min/1.73 sq.m. Ages 70+ = 75 mL/min/1.73 sq.m. Chronic Kidney Disease: Less than 60 mL/min/1.73 square meters End Stage Renal Disease: Less than 15 mL/min/1.73 square meters Performed By: #### A DIFF, ANEU, CBC #### [place] [address] #### GFR, LIPID, A1C, BMP #### [address] [address] .NEUABSon 02-10-2021 Neutrophils (Bld) [#/Vol] 4.10 10 3/mcL Normal 2.85-6.16 [facility] ([place]) Comment on above: Performed By: #### A DIFF, ANEU, CBC #### [place] [address] #### GFR, LIPID, A1C, BMP #### [place] [address] A1Con 02-10-2021 HbA1c (Bld) [Mass fraction] 5.5 % Normal 4.3-6.4 [facility] ([place] Comment on above: Performed By: #### A DIFF, ANEU, CBC #### [address] [address] #### GFR, LIPID, A1C, BMP #### [place] [address] BMPon 02-10-2021 Calcium [Mass/Vol] 9.7 mg/dL Normal 8.4-10.2 [facility] [place] Comment on above: Performed By: #### A DIFF, ANEU, CBC #### [place] [address] #### GFR, LIPID, A1C, BMP #### [place] [address] Chloride [Moles/Vol] 105 mmol/L Normal 98-107 [facility] ([place]) Comment on above: Performed By: #### A DIFF, ANEU, CBC #### [address] [address] #### GFR, LIPID, A1C, BMP #### [address] [address] CO2 [Moles/Vol] 29 mmol/L Normal 22-29 [facility] ([place] Comment on above: Performed By: #### A DIFF, ANEU, CBC #### [address] [address] #### GFR, LIPID, A1C, BMP #### [address] [address] Creatinine [Mass/Vol] 0.84 mg/dL Normal 0.55-1.02 [facility] ([place]) Comment on above: Performed By: #### A DIFF, ANEU, CBC #### [address] [address] #### GFR, LIPID, A1C, BMP #### [address] [address] Electrolyte Balance 8.0 mEq/L Normal [facility] ([place]) Comment on above: Performed By: #### A DIFF, ANEU, CBC #### [address] [address] #### GFR, LIPID, A1C, BMP #### [address] [address] Glucose [Mass/Vol] 78 mg/dL Normal 70-105 [facility] [place] Comment on above: Performed By: #### A DIFF, ANEU, CBC #### [address] [address] #### GFR, LIPID, A1C, BMP #### [address] [address] Potassium [Moles/Vol] 4.1 mmol/L Normal 3.5-5.1 [facility] ([place]) Comment on above: Performed By: #### A DIFF, ANEU, CBC #### [address] [address] #### GFR, LIPID, A1C, BMP #### [address] [address] Sodium [Moles/Vol] 142 mmol/L Normal 136-145 [facility] [place] Comment on above: Performed By: #### A DIFF, ANEU, CBC #### [address] [address] #### GFR, LIPID, A1C, BMP #### [address] [address] Urea nitrogen [Mass/Vol] 14 mg/dL Normal 7-18 [facility] ([place] Comment on above: Performed By: #### A DIFF, ANEU, CBC #### [address] [address] #### GFR, LIPID, A1C, BMP #### [address] [address] Urea nitrogen/Creatinine [Mass ratio] 17 ratio Normal 7-27 [facility] ([place] Comment on above: Performed By: #### A DIFF, ANEU, CBC #### [address] [address] #### GFR, LIPID, A1C, BMP #### [address] [address] CBCon 02-10-2021 Erythrocyte distribution width (RBC) [Ratio] 14.7 % High 11.5-14.5 [facility] ([place] Comment on above: Performed By: #### A DIFF, ANEU, CBC #### [address] [address] #### GFR, LIPID, A1C, BMP #### [address] [address] Hematocrit (Bld) [Volume fraction] 35.6 % Low 37.0-47.0 [facility] ([place] Comment on above: Performed By: #### A DIFF, ANEU, CBC #### [address] [address] #### GFR, LIPID, A1C, BMP #### [address] [address] Hemoglobin (Bld) [Mass/Vol] 12.1 G/dL Normal 12.0-16.0 [facility] ([place] Comment on above: Performed By: #### A DIFF, ANEU, CBC #### [address] [address] #### GFR, LIPID, A1C, BMP #### [address] [address] MCH (RBC) [Entitic mass] 28.0 pg Normal 27.0-31.2 [facility] ([place] Comment on above: Performed By: #### A DIFF, ANEU, CBC #### [place] [address] #### GFR, LIPID, A1C, BMP #### [place] [address] MCHC (RBC) [Mass/Vol] 33.9 G/dL Normal 33.0-37.0 [facility] ([place] Comment on above: Performed By: #### A DIFF, ANEU, CBC #### [place] [address] #### GFR, LIPID, A1C, BMP #### [place] [address] MCV (RBC) [Entitic vol] 82.6 fL Normal 80.0-94.0 [facility] ([place] Comment on above: Performed By: #### A DIFF, ANEU, CBC #### [place] [address] #### GFR, LIPID, A1C, BMP #### [place] [address] Platelet mean volume (Bld) [Entitic vol] 7.5 fL Normal 7.4-10.4 [facility] ([place] Comment on above: Performed By: #### A DIFF, ANEU, CBC #### [place] [address] #### GFR, LIPID, A1C, BMP #### [place] [id number] Platelets (Bld) [#/Vol] 349 10 3/mcL Normal 130-400 [facility] ([place] Comment on above: Performed By: #### A DIFF, ANEU, CBC #### [address] [address] #### GFR, LIPID, A1C, BMP #### [address] [address] RBC (Bld) [#/Vol] 4.31 10 6/mcL Normal 4.20-5.40 [facility] ([place] Comment on above: Performed By: #### A DIFF, ANEU, CBC #### [address] [address] #### GFR, LIPID, A1C, BMP #### [address] [address] WBC (Bld) [#/Vol] 6.90 10 3/mcL Normal 4.60-10.80 [facility] ([place]) Comment on above: Performed By: #### A DIFF, ANEU, CBC #### [address] [address] #### GFR, LIPID, A1C, BMP #### [address] [address] LIPIDon 02-10-2021 Cholesterol [Mass/Vol] 155 mg/dL Normal 0-200 [facility] ([place] Comment on above: Result Comment: Chol esterol Reference Interval: Less than 200 Desirable 200-239 Borderline high risk 240 and above High risk Performed By: #### A DIFF, ANEU, CBC #### [address] [address] #### GFR, LIPID, A1C, BMP #### [address] [address] Cholesterol in HDL [Mass/Vol] 29 mg/dL Low 40-60 [facility] ([place] Comment on above: Performed By: #### A DIFF, ANEU, CBC #### [address] [address] #### GFR, LIPID, A1C, BMP #### [address] [address] Cholesterol in LDL [Mass/Vol] 73 mg/dL Normal 0-130 [facility] ([place]) Comment on above: Performed By: #### A DIFF, ANEU, CBC #### [place] [address] [place], [place] [address] #### GFR, LIPID, A1C, BMP #### [facility] [address] [place] [address] Triglyceride [Mass/Vol] 266 mg/dL High 0-150 [facility] ([place]) Comment on above: Result Comment: Trig lyceride Reference Interval: Less than 150 Normal 150-199 Borderline high risk 200-499 High risk 500 or higher Very high risk Performed By: #### A DIFF, ANEU, CBC #### [place] [address] [place], [place] [address] #### GFR, LIPID, A1C, BMP #### [address] [address] XR FOREARM 2 VIEWS RIGHTon 0 02-10-2021 XR FOREARM 2 VIEWS RIGHT ORIGINAL XR FOREARM 2 VIEWS RIGHT CLINICAL STATEMENT: right forearm pain, ecchymosis after fall onto metal bar. COMPARISON: None FINDINGS: No acute fracture or dislocation is identified. There is no radiopaque foreign body. IMPRESSION: No acute fracture or dislocation. Interpreted By: Shadia Araya MD Preliminary Report By: Shadia Araya MD Electronically Signed By: Shadia Araya MD Dictated Date: 02/10/2021 2:38:31 PM Prelim Date: 02/10/2021 2:38:31 PM Sign Date: 02/10/2021 2:39:21 PM Ordering Provider:Domingo Frank [facility] ([place]) DIMERon 01-20-2021 Fibrin D-dimer FEU [place] (Bld) [Mass/Vol] ug/mL Normal 0-230 [facility] ([place]) Comment on above: Result Comment: The result of the D-Dimer test should be evaluated in the context of all the clinical and laboratory data available. In those instances where the laboratory result does not agree with the clinical evaluation, additional tests should be performed accordingly. If the D-Dimer result is used to exclude DVT or PE, the recommended cutoff value is less than 230 ng/mL. The D-Dimer result should not be used alone to rule in DVT/PE, but should be used in conjunction with a clinical pretest probability (PTP)assessment model to exclude venous thromboembolism (VTE) in outpatients suspected of deep venous thrombosis (DVT) and pulmonary embolism (PE). Performed By: #### D MACKENZIE #### [facility] [place] [address] [place], [place] [address] CT HEAD OR BRAIN W/O CONTRAS Ton 04-06-2020 CT HEAD OR BRAIN W/O CONTRAST ORIGINAL CT HEAD OR BRAIN W/O CONTRAST TECHNIQUE: Images were obtained without contrast. This exam was performed according to our departmental dose optimization program, and includes the following measures where applicable: automated exposure control, adjustment of the mAs and/or kVp according to patient size and/or exam, and an iterative reconstruction algorithm. CLINICAL STATEMENT: pain. Syncopal episode. COMPARISON: None FINDINGS: No calvarial fracture is identified. Within the brain, there is no hemorrhage or mass seen. Ventricles, sulci and becerra-white junctions are preserved. The posterior fossa is unremarkable. IMPRESSION: No acute process. Interpreted By: Jeff Turk MD Preliminary Report By: Jeff Turk MD Electronically Signed By: Jeff Turk MD Dictated Date: 04/06/2020 10:52:14 AM Prelim Date: 04/06/2020 10:52:14 AM Sign Date: 04/06/2020 10:54:22 AM Ordering Provider:[place] Frank [facility] ([place]) CR Chest PA/LATon 11-10-2019 CR Chest PA/LAT Patient Name: NADIA JUAN Diagnostic Radiology Exam Date/Time 11/10/2019 20:56:00 EST Exam CR Chest PA/LAT Ordering Physician KAYCEE MONAHAN LISA K. Accession Number [id number] CPT4 Codes 40443 () Reason For Exam cough, SOB, wheezes Report CHEST PA AND LATERAL CLINICAL INDICATION: cough, SOB, wheezes TECHNIQUE: Frontal and lateral chest x-ray. COMPARISON: March,. FINDINGS: Cardiac and mediastinal silhouette within normal limits. Lungs are grossly clear. No significant vascular congestion. No apparent pleural effusion or pneumothorax. Bony thorax grossly unremarkable. IMPRESSION: 1. No acute consolidation. Report Dictated on Workstation: JOSE Final Dictated: 11/10/2019 8:58 pm Dictating Physician: MD CHAWLA WENDELL Signed Date and Time: 11/10/2019 8:58 pm Signed by: MD CHAWLA WENDELL Transcribed Date and Time: 11/10/2019 8:58 Normal [facility] XR CHEST STANDARD (2 VW)Orde red By: 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 on 11-10-2019 Patient Name: NADIA JUAN ---Diagnostic Radiology--- Exam Date/Time 11/10/2019 20:56:00 EST Exam CR Chest PA/LAT Ordering Physician KAYCEE MONAHAN, CYNDI Ryder Accession Number [id number] CPT4 Codes 14318 () Reason For Exam cough, SOB, wheezes Report CHEST PA AND LATERAL CLINICAL INDICATION: cough, SOB, wheezes TECHNIQUE: Frontal and lateral chest x-ray. COMPARISON: March,. FINDINGS: Cardiac and mediastinal silhouette within normal limits. Lungs are grossly clear. No significant vascular congestion. No apparent pleural effusion or pneumothorax. Bony thorax grossly unremarkable. IMPRESSION: 1. No acute consolidation. Report Dictated on Workstation: JOSE --- Final --- Dictated: 11/10/2019 8:58 pm Dictating Physician: MD CHAWLA WENDELL Signed Date and Time: 11/10/2019 8:58 pm Signed by: MD CHAWLA WENDELL Transcribed Date and Time: 11/10/2019 8:58 [facility] Work Phone: [place] [address] Incoming Radiology Results From [facility] - 11/10/2019 9:00 PM EST Patient Name: NADIA BROWN ---Diagnostic Radiology--- Exam Date/Time 11/10/2019 20:56:00 EST Exam CR Chest PA/LAT Ordering Physician KAYCEE MONAHAN, CYNDI Ryder Accession Number [id number] CPT4 Codes 60344 () Reason For Exam cough, SOB, wheezes Report CHEST PA AND LATERAL CLINICAL INDICATION: cough, SOB, wheezes TECHNIQUE: Frontal and lateral chest x-ray. COMPARISON: March,. FINDINGS: Cardiac and mediastinal silhouette within normal limits. Lungs are grossly clear. No significant vascular congestion. No apparent pleural effusion or pneumothorax. Bony thorax grossly unremarkable. IMPRESSION: 1. No acute consolidation. Report Dictated on Workstation: [id number] --- Final --- Dictated: 11/10/2019 8:58 pm Dictating Physician: MD CHAWLA WENDELL Signed Date and Time: 11/10/2019 8:58 pm Signed by: MD CHAWLA WENDELL Transcribed Date and Time: 11/10/2019 8:58 [facility] Work Phone: ED PROV NOTEon 03-22-2018 Protein mass conc HNO ID: [id number] thor: Guillermo Ramírez: (none)Author Type: PhysicianType: ED Provider NotesFiled: 09/08/2018 5:26 PMNote Text:[place], [place] [address]CIYWWX INFORMATION MANAGEMENTEMERGENCY DEPARTMENT REPORTPatient: NADIA BROWN JOEL A M.D.[id number] 22 FStatus: DEP ER EDDate of Service: 03/14/18CHIEF COMPLAINTNausea, vomiting, diarrhea.HISTORY OF PRESENT ILLNESSThis is a 22-year-old female brought in today with the above complaint.Complaining of nausea, vomiting, diarrhea for the past 3 days. I saw herwith Jose Aleman today. She was given IV fluids. She was givennausea medicine. She was feeling better. Her labs were unremarkable.PHYSICAL EXAMINATIONOn my physical examination she is awake, alert and not in acute distress.Vitals: As charted. HEENT is atraumatic, normocephalic. The oropharynxis moist. Abdomen is soft, nondistended, nontender.EMERGENCY DEPARTMENT COURSEShe is discharged home with antiemetics. To take antidiarrheals as needed.She can return if worse or problems of any kind.IMPRESSION 04/01/181922 GUILLERMO BECKFORD M.D.cc: GUILLERMO EARL M.D. << Signature on File>> Reported By: GUILLERMO EARL M.D. Signed By: GUILLERMO EARL M.D.Tests performed at:[address] [phone] Normal [facility] [place] Protein mass conc HNO ID: [id number] thor: Guillermo Adlerervice: (none)Author Type: PhysicianType: ED Provider NotesFiled: 09/08/2018 5:25 PMNote Text:[place], [place] [address]IESIEW INFORMATION MANAGEMENTEMERGENCY DEPARTMENT REPORTPatient: NADIA BROWN GUILLERMO APPIAH M.D. as dictated by JOSE ALEMAN, KAYCEE-[id number] FStatus: DEP ER EDDate of Service: 03/14/18CHIEF COMPLAINTVomiting.HISTORY OF PRESENT ILLNESSThe patient states she has had vomiting for the last 2-3 days. She saidabout 3 times a day, about a half-hour after she eats she will getnauseous and vomit. She denies any urinary symptoms. Said that she feltlike she had a temperature. She had some chills but she has not actuallytaken her temperature. She said she has actually had diarrhea as wellbut only reports about twice a day over the last two or 3 days as well.She states she does have some upper abdominal pain, a 6/10, says it isright in the mid upper abdomen. She denies any back pain, no chest painor shortness of breath. No blood in her diarrhea or in her vomit. [place] tarry stools.PAST MEDICAL HISTORYEpilepsy.PAST SURGICAL HISTORYCholecystectomy and a and wisdom teeth removed.SOCIAL HISTORYShe is single. Denies drug, alcohol or tobacco use.ALLERGICPenicillin and latex.DAILY MEDICATIONSInclude Lamictal, Topamax and Abilify.PHYSICAL EXAMThe patient's blood pressure 126/76, temperature 98.4, pulse 69,respirations 16, SPO2 is 100% on room air. She is a well-nourished,appears to be well-hydrated 22-year-old female in no acute distress,nontoxic -appearing. Head is atraumatic, normocephalic. Neck is supple,nontender. Mucous membranes are moist. Skin color is pink. She is warmand dry. Cap refill less than 2 seconds. No rashes, lesions, purpura,petechiae. She is alert and oriented x3. Breath sounds are clear,respirations easy. Cardiac shows a regular rate and rhythm. Good warmthand perfusion to her extremities. Abdomen is soft, positive bowelsounds. She is mildly tender to the mid upper abdomen. No tenderness tothe right upper quadrant or left upper quadrant or to the rest of theabdomen. No CVA tenderness.EMERGENCY DEPARTMENT COURSEWe gave her a liter of IV fluid, gave her some Zofran, gave her someProtonix. Her glucose is 89, BUN and creatinine 11 and 0.95. Wlgylc803, potassium 4.2, chloride 109, bicarb is 24. Liver enzymes and lipaseare unremarkable. test is negative. Urinalysis is negative.White blood count is 6.9, HANDH 11.6 and 35.1. Platelets 285. The patientwas feeling better after fluids and Zofran. We will discharge her home.I will place her on some omeprazole, gave her a prescription for someZofran. She can follow up with family doctor listed. She does not havea local one so she was assigned Dr. Salmon who is on backup if she isnot better in a couple of days. Return here for any worsening condition.IMPRESSIONGastr monse. 04/01/181921 GUILLERMO EARL M.D.cc: GUILLERMO EARL M.D. << Signature on File>> Reported By: GUILLERMO EARL M.D. Signed By: GUILLERMO EARL M.D.Tests performed at:[address] [phone] Normal [facility] ED REPORTon 03-22-2018 ED REPORT [place], [place] [address]ICZXKR INFORMATION MANAGEMENTEMERSCOTT REGIONAL HOSPITALCY DEPARTMENT REPORTPatient: NADIA BROWN JOEL A M.D. as dictated by JOSE ALEMAN, KAYCEE-[id number] FStatus: [facility] EDDate of Service: 03/14/18CHIEF COMPLAINTVomiting.HISTORY OF PRESENT ILLNESSThe patient states she has had vomiting for the last 2-3 days. She said about 3 times aday, about a half-hour after she eats she will get nauseous and vomit. She denies anyurinary symptoms. Said that she felt like she had a temperature. She had some chills butshe has not actually taken her temperature. She said she has actually had diarrhea as wellbut only reports about twice a day over the last two or 3 days as well. She states shedoes have some upper abdominal pain, a 6/10, says it is right in the mid upper abdomen.She denies any back pain, no chest pain or shortness of breath. No blood in her diarrheaor in her vomit. No black tarry stools.PAST MEDICAL HISTORYEpilepsy.PAST SURGICAL HISTORYCholecystectomy and a and wisdom teeth removed.SOCIAL HISTORYShe is single. Denies drug, alcohol or tobacco use.ALLERGICPenicillin and latex.DAILY MEDICATIONSInclude Lamictal, Topamax and Abilify.PHYSICAL EXAMThe patient's blood pressure 126/76, temperature 98.4, pulse 69, respirations 16, SPO2 is100% on room air. She is a well-nourished, appears to be well-hydrated 22-year-old femalein no acute distress, nontoxic -appearing. Head is atraumatic, normocephalic. Neck issupple, nontender. Mucous membranes are moist. Skin color is pink. She is warm and dry.Cap refill less than 2 seconds. No rashes, lesions, purpura, petechiae. She is alert andoriented x3. Breath sounds are clear, respirations easy. Cardiac shows a regular rate andrhythm. Good warmth and perfusion to her extremities. Abdomen is soft, positive bowelsounds. She is mildly tender to the mid upper abdomen. No tenderness to the right upperquadrant or left upper quadrant or to the rest of the abdomen. No CVA tenderness.EMERGENCY DEPARTMENT COURSEWe gave her a liter of IV fluid, gave her some Zofran, gave her some Protonix. Her glucoseis 89, BUN and creatinine 11 and 0.95. Sodium 142, potassium 4.2, chloride 109, bicarb is24. Liver enzymes and lipase are unremarkable. test is negative. Urinalysis isnegative. White blood count is 6.9, H&H 11.6 and 35.1. Platelets 285. The patient wasfeeling better after fluids and Zofran. We will discharge her home. I will place her onsome omeprazole, gave her a prescription for some Zofran. She can follow up with familydoctor listed. She does not have a local one so she was assigned Dr. Salmon who is onbackup if she is not better in a couple of days. Return here for any worsening condition.Alexandro shea. 04/01/18 192 GUILLERMO EARL M.D.cc: GUILLERMO EARL M.D. << Signature on File>> Reported By: GUILLERMO EARL M.D. Signed By: GUILLERMO EARL M.D.Tests performed at:[address] [phone] [facility] EMERGENCY DEPARTMENT REPORTo n 03-22-2018 EMERGENCY DEPARTMENT REPORT [place] [id number] INFORMATION MANAGEMENTEMERGENCY DEPARTMENT REPORTPatient: NADIA BROWN JOEL A M.D.[id number] FStatus: DEP ER EDDate of Service: 03/14/18CHIEF COMPLAINTNausea, vomiting, diarrhea.HISTORY OF PRESENT ILLNESSThis is a 22-year-old female brought in today with the above complaint. Complaining ofnausea, vomiting, diarrhea for the past 3 days. I saw her with Jose Aleman today.She was given IV fluids. She was given nausea medicine. She was feeling better. Her labswere unremarkable.PHYSICAL EXAMINATIONOn my physical examination she is awake, alert and not in acute distress. Vitals: Ascharted. HEENT is atraumatic, normocephalic. The oropharynx is moist. Abdomen is soft,nondistended, nontender.EMERGENCY DEPARTMENT COURSEShe is discharged home with antiemetics. To take antidiarrheals as needed. She can returnif worse or problems of any kind.IMPRESSION 04/01/18 1923 GUILLERMO BECKFORD M.D.cc: GUILLERMO EARL M.D. << Signature on File>> Reported By: GUILLERMO EARL M.D. Signed By: GUILLERMO EARL M.D.Tests performed at:[address] [phone] Normal [facility] BHCG (SERUM)on 03-14-2018 HCG.beta subunit Qn Negative Normal NEGATIVE [facility] Comment on above: Result Comment: Seru m Test is more Sensitive than a UrinePregnancy Test. Please Note Threshold Values: SERUM - 10mlU/mL URINE - 20mlU/mL Performed By: #### L 200.4092 ####[facility] [id number] [place] [address] BMPon 03-14-2018 Anion gap 13.2 mmol/L Low - [facility] Comment on above: Performed By: #### L 100.0010, L100.0030, L100.0350 ####[address] [address] Calcium 9.3 mg/dL Normal 8.6-10.0 [facility] Comment on above: Performed By: #### L 100.0010, L100.0030, L100.0350 ####[address] [address] Chloride 109 mmol/L High 98-107 [facility] Comment on above: Performed By: #### L 100.0010, L100.0030, L100.0350 ####[address] [address] CO2 24 mmol/L Normal 22-29 [facility] Comment on above: Performed By: #### L 100.0010, L100.0030, L100.0350 #### - [id number] [place] [address] Creatinine 0.95 mg/dL High 0.50-0.90 [facility] Comment on above: Performed By: #### L 100.0010, L100.0030, L100.0350 ####[facility] [id number] [place] [address] eGFR (non-black) > 60 ml/min/1.73m2 Normal [facility] Comment on above: Result Comment: eGFR >= 60 Indicates normal kidney function. * eGFR IS AN ESTIMATE * (AFR DIANA = ) (non-AFR AM = NON-) MDRD calculation used in the eGFR should not be used to dose medications. For further limitations of the eGFR please refer to the Physician Website or the National Kidney Disease Education Program website (www.nkdep.nih.gov). Performed By: #### L 100.0010, L100.0030, L100.0350 ####[facility] AQUYEWVXUM[address] [place] [address] Glucose mass conc 89 mg/dL Normal 74-106 [facility] Comment on above: Performed By: #### L 100.0010, L100.0030, L100.0350 ####[facility] [id number] [place] [address] Potassium molar conc 4.2 mmol/L Normal 3.5-5.0 [facility] Comment on above: Performed By: #### L 100.0010, L100.0030, L100.0350 ####[facility] OVZGYIBTVU[address] [place] [address] Sodium 142 mmol/L Normal 135-145 [facility] Comment on above: Performed By: #### L 100.0010, L100.0030, L100.0350 ####[facility] [address] [place] [address] Urea nitrogen 11 mg/dL Normal 6-20 [facility] Comment on above: Performed By: #### L 100.0010, L100.0030, L100.0350 ####[address] [address] CBCon 03-14-2018 Basophils Auto #/vol (Bld) 0.00 x10(3) Normal 0.00-0.10 [facility] Comment on above: Performed By: #### L 200.0010 ####[address] [address] Basophils/100 WBC Auto (Bld) 0.5 % Normal 0.0-1.0 [facility] Comment on above: Performed By: #### L 200.0010 ####[address] [address] Eosinophils 0.10 x10(3) Normal 0.00-0.54 [facility] Comment on above: Performed By: #### L 200.0010 ####[address] [address] Eosinophils/100 leukocytes 1.2 % Normal 0.5-4.9 [facility] Comment on above: Performed By: #### L 200.0010 ####[address] [address] Erythrocyte distribution width Auto Ratio (RBC) 14.2 % Normal 12.5-15.7 [facility] Comment on above: Performed By: #### L 200.0010 ####[address] [address] Erythrocytes (RBC) 4.07 x10(6) Normal 3.30-5.00 [facility] Comment on above: Performed By: #### L 200.0010 ####[address] [address] Hematocrit (HCT) 35.1 % Low 36.0-48.0 [facility] Comment on above: Performed By: #### L 200.0010 ####ML - LEHTNYNQLM[address] [place] [address] Hemoglobin mass conc (Bld) 11.6 g/dL Low 12.0-16.0 [facility] Comment on above: Performed By: #### L 200.0010 ####ML - NOWOQTIEUM[address] [place] [address] Lymphocytes 1.80 x10(3) Normal 1.00-3.50 [facility] Comment on above: Performed By: #### L 200.0010 ####ML - BEZSYXYEEH[address] [place] [address] Lymphocytes/100 leukocytes 26.8 % Normal 16.0-48.0 [facility] Comment on above: Performed By: #### L 200.0010 ####ML - SRGESGLLRF[address] [place] [address] MCH 28.6 pg Normal 28.5-32.9 [facility] Comment on above: Performed By: #### L 200.0010 ####ML - ALFFQADBDN[address] [place] [address] MCHC mass conc (RBC) 33.1 g/dL Normal 33.0-36.0 [facility] Comment on above: Performed By: #### L 200.0010 ####ML - XQRUFGKHWU[address] [place] [address] MCV 86.3 fL Normal 80.0-99.0 [facility] Comment on above: Performed By: #### L 200.0010 ####ML - DXPMBXYRPR[address] [place] [address] Monocytes 0.60 x10(3) Normal 0.30-0.80 [facility] Comment on above: Performed By: #### L 200.0010 ####ML - MDGTGMCGLQ[address] [place] [address] Monocytes/100 leukocytes 8.7 % Normal 4.3-11.2 [facility] Comment on above: Performed By: #### L 200.0010 ####ML - REJSAIQZAX[address] [place] [address] Neutrophils 4.30 x10(3) Normal 1.40-6.50 [facility] Comment on above: Performed By: #### L 200.0010 ####ML - LDQIBXJTDT[address] [place] [address] Neutrophils/100 WBC Auto (Bld) 62.8 % Normal 45.0-73.0 [facility] Comment on above: Performed By: #### L 200.0010 ####ML - OLSJQATSVC[address] [place] [address] Platelet mean volume (PMV) 7.7 fL Normal 7.5-9.5 [facility] Comment on above: Performed By: #### L 200.0010 ####ML [facility] G[address]UOM[address] [place] [address] Platelets 285 X10(3) Normal 150-450 [facility] Comment on above: Performed By: #### L 200.0010 ####ML - GGKAKOWRNY[address] [place] [address] WBC (Leukocytes) 6.9 x10(3) Normal 4.5-10.0 [facility] Comment on above: Performed By: #### L 200.0010 ####ML - SAYQKDJQLS[address] [place] [address] HEPATIC PANELon 03-14-2018 A:G RATIO 1.46 Normal 1.1-2.5 [facility] Comment on above: Performed By: #### L 100.0010, L100.0030, L100.0350 ####ML - ALTXPQWQMJ[address] [place] [address] Alanine aminotransferase (ALT) 22 U/L Normal 5-33 [facility] Comment on above: Performed By: #### L 100.0010, L100.0030, L100.0350 ####ML - KDUPAWSISP[address] [place] [address] Albumin 4.1 g/dL Normal 3.5-5.2 [facility] Comment on above: Performed By: #### L 100.0010, L100.0030, L100.0350 #### - CHJIKDZJEY[address] [place] [address] ALK. PHOS 62 U/L Normal 35-105 [facility] Comment on above: Performed By: #### L 100.0010, L100.0030, L100.0350 #### - IKUYKPKSJG7[address] [place] [address] Aspartate aminotransferase (AST) 18 U/L Normal 5-32 [facility] Comment on above: Performed By: #### L 100.0010, L100.0030, L100.0350 ####[facility] BBABZNHRRG[address] [place] [address] Bilirubin Ql (U) 0.2 mg/dL Normal 0.2-1.2 [facility] Comment on above: Performed By: #### L 100.0010, L100.0030, L100.0350 ####[facility] HHEQVNRBOV[address] [place] [address] DIRECT BILIRUBI <0.2 Normal 0.0-0.3 [facility] Comment on above: Performed By: #### L 100.0010, L100.0030, L100.0350 ####[facility] UZCKZDVZWV[address] [place] [address] Globulin 2.8 g/dL Normal 1.5-4.5 [facility] Comment on above: Performed By: #### L 100.0010, L100.0030, L100.0350 ####[facility] RKZMFRKBBF[address] [place] [address] Protein 6.9 g/dL Normal 6.4-8.3 [facility] Comment on above: Performed By: #### L 100.0010, L100.0030, L100.0350 ####[facility] RXTSGRWQSC[address] [place] [address] LIPASEon 03-14-2018 Lipase 28 U/L Normal 13-60 [facility] Comment on above: Performed By: #### L 100.0010, L100.0030, L100.0350 ####[facility] DKIQUZPCEL[address] [place] [address] URINALYSISon 03-14-2018 Bilirubin Ql (U) Negative Normal NEGATIVE [facility] Comment on above: Order Comment: Sourc e: Clean Catch .. Y Performed By: #### L 200.3000 ####ML - [facility] PCHUGOMUBS[address] [facility] [place] [address] URINE APPEARANC SL CLOUDY Normal CLEAR [facility] Comment on above: Order Comment: Sourc e: Clean Catch .. Y Performed By: #### L 200.3000 ####ML - BAYRYKJSNW825 [facility] [place] [address] URINE KETONE Negative Normal NEGATIVE [facility] Comment on above: Order Comment: Sourc e: Clean Catch .. Y Performed By: #### L 200.3000 ####ML - [id number] [facility] [place] [address] URINE SPECIFIC 1.025 Normal 1.001-1.035 [facility] Comment on above: Order Comment: Sourc e: Clean Catch .. Y Performed By: #### L 200.3000 ####ML - [facility] BKCQSRAHRJ343 [facility] [place] [address] URINE UROBILINO 0.2 EU/DL Normal 0.2-1.0 [facility] Comment on above: Order Comment: Sourc e: Clean Catch .. Y Performed By: #### L 200.3000 ####ML - [id number] [place] [address] Urine, color YELLOW Normal YELLOW [facility] Comment on above: Order Comment: Sourc e: Clean Catch .. Y Performed By: #### L 200.3000 ####ML - MSQHSZZBSO599 [facility] [place] [address] Urine, glucose presence Negative Normal NEGATIVE [facility] Comment on above: Order Comment: Sourc e: Clean Catch .. Y Performed By: #### L 200.3000 ####ML - [facility] GVWDWNFVOQ172 [facility] [place] [address] Urine, hemoglobin presence Negative Normal NEGATIVE [facility] Comment on above: Order Comment: Sourc e: Clean Catch .. Y Performed By: #### L 200.3000 ####ML - [facility] TTJMEYOSXT[address] [place] [address] Urine, leukocyte esterase presence Negative Normal NEGATIVE [facility] Comment on above: Order Comment: Sourc e: Clean Catch .. Y Performed By: #### L 200.3000 ####ML - [facility] YWRVDZMMKP798 [place] [address] Urine, nitrite presence Negative Normal NEGATIVE [facility] Comment on above: Order Comment: Sourc e: Clean Catch .. Y Performed By: #### L 200.3000 ####ML - [facility] UWZCHZAVDY[address] [place] [address] Urine, pH 6.0 [pH] Normal 5.0-8.0 [facility] Comment on above: Order Comment: Sourc e: Clean Catch .. Y Performed By: #### L 200.3000 ####ML - [facility] VOTXSIASKX[address] [place] [address] Urine, protein presence Negative Normal NEGATIVE [facility] Comment on above: Order Comment: Sourc e: Clean Catch .. Y Performed By: #### L 200.3000 ####ML - [facility] DYFLBFUKSS[address] [place] [address] ED PROV NOTEon 02-20-2018 Protein mass conc HNO ID: [id number] thor: Fidel Becerril CurrentService: (none)Author Type: PhysicianType: ED Provider NotesFiled: 09/08/2018 4:33 PMNote Text:[place], [place] [address]AOAQAL INFORMATION MANAGEMENTEMERGENCY DEPARTMENT REPORTPatient: NADIA BROWN JOHN S D.O. as dictated by NELSON VALADEZ NP-[id number] FStatus: DEP ER EDDate of Service: 02/15/18CHIEF COMPLAINT/HISTORY OF PRESENT ILLNESSThis is a 22-year-old female who presents to the emergency room withintermittent headache x3 days. She states it feels like one of hernormal migraines. She has been taking her Imitrex without relief. [facility] [place].allergiesAllergies to penicillin, latex.SOCIAL HISTORYThe patient is single. Does not smoke or drink. No drug use.PAST SURGICAL HISTORYC-section x2 and cholecystectomy.PAST MEDICAL HISTORYBipolar, depression, migraines, seizures, suicide attempts, cirrhosis.MEDICATIONSDail y medication includes Topamax, Lamictal, Abilify.PHYSICAL EXAMINATIONOn examination, blood pressure 130/85, temperature 98.5, pulse 73,respirations 16, pulse ox 100% on room air. The patient states 7/10discomfort in her head. Upon evaluation, pupils are equal and reactive.Extraocular movements are intact. Cranial nerves 2 through 12 areintact. Nose is patent. Throat is clear. Trachea is midline. Neck issupple. No pain palpating the scalp, cervical spine, paracervical areabilaterally. Full range of motion of the neck. Lungs are clearthroughout. No wheezes, rhonchi or rales. Heart is regular rate andrhythm, no murmurs appreciated. Abdomen is soft and nontender. No rash,discoloration of the skin. She is moving all four extremities withdifficulty. No peripheral or focal neurologic deficits noted on exam.EMERGENCY DEPARTMENT COURSEAfter evaluating the patient, we did medicate her here with IM injectionsof Toradol, Phenergan, Benadryl. On reevaluation, she is feeling muchbetter and would like to go home. Encouraged her to continue her homemedications, increase her fluid intake and rest. Avoid stimulants orstrenuous activities until symptoms resolve. Follow with her neurologistas she has got scheduled. Return if worse in any way. The patient states understanding of all instructions. No further questions at this time.She will be discharged home in stable condition.IMPRESSIONMigra ine cephalgia. 02/20/18 2109 CURRENTALEXANDER D.O.cc: FIDEL ORTIZ D.O.; No Physician << Signature on File>> Reported By: FIDEL ORTZI D.O. Signed By: FIDEL ORTIZ D.O.Tests performed at:[address] [phone] Normal [facility] ED REPORTon 04-15-2018 ED REPORT [place], [place] [address]IQBDZZ INFORMATION MANAGEMENTEMERSCOTT REG[facility]AL [facility]OSPITALCY DEPARTMENT REPORTPatient: NADIA BROWN FANNY,FIDEL Hollins D.O. as dictated by NELSON VALADEZ, KAYCEE-[id number] FStatus: [facility] EDDate of Service: 02/15/18CHIEF COMPLAINT/HISTORY OF PRESENT ILLNESSThis is a 22-year-old female who presents to the emergency room with intermittent headachex3 days. She states it feels like one of her normal migraines. She has been taking herImitrex without relief. She sees [facility] Edwards [facility] at [facility] [place].allergiesAllergies to penicillin, latex.SOCIAL HISTORYThe patient is single. Does not smoke or drink. No drug use.PAST SURGICAL HISTORYC-section x2 and cholecystectomy.PAST MEDICAL HISTORYBipolar, depression, migraines, seizures, suicide attempts, cirrhosis.MEDICATIONSDail y medication includes Topamax, Lamictal, Abilify.PHYSICAL EXAMINATIONOn examination, blood pressure 130/85, temperature 98.5, pulse 73, respirations 16, pulseox 100% on room air. The patient states 7/10 discomfort in her head. Upon evaluation,pupils are equal and reactive. Extraocular movements are intact. Cranial nerves 2 [id number] are intact. Nose is patent. Throat is clear. Trachea is midline. Neck is supple. Nopain palpating the scalp, cervical spine, paracervical area bilaterally. Full range ofmotion of the neck. Lungs are clear throughout. No wheezes, rhonchi or rales. Heart isregular rate and rhythm, no murmurs appreciated. Abdomen is soft and nontender. No rash,discoloration of the skin. She is moving all four extremities with difficulty. Noperipheral or focal neurologic deficits noted on exam.EMERGENCY DEPARTMENT COURSEAfter evaluating the patient, we did medicate her here with IM injections of Toradol,Phenergan, Benadryl. On reevaluation, she is feeling much better and would like to gohome. Encouraged her to continue her home medications, increase her fluid intake and rest.Avoid stimulants or strenuous activities until symptoms resolve. Follow with herneurologist as she has got scheduled. Return if worse in any way. The patient statesunderstanding of all instructions. No further questions at this time. She will bedischarged home in stable condition.IMPRESSIONMiyasmin white cephalgia. 02/20/18 2109 ALEXANDER ORTIZ D.O.cc: FIDEL ORTIZ D.O.; No Physician << Signature on File>> Reported By: FIDEL ORTIZ D.O. Signed By: FIDEL ORTIZ D.O.Tests performed at:[address] [phone] Normal [facility] US BREAST BILATERAL COMPLETE BCCon 05-12-2017 Bilirubin (total) ORIGINALFROM:[place], [place] [address]Phone: PROCEDURE FOR:NADIA RiceGenia [id number] [place], [place] [address]Gbty: [phone]#: [id number]#: [id number]#: [id number]: 1995Age: 21 TO:[facility]AN[facility] [id number] [place] [address] #[id number] ULTRASOUND OF BOTH BREASTS: 05/12/2017CLINICAL: BILATERAL BASE LINE SCREENING. No prior exams were available for comparison. Real-time ultrasound of both breasts was performed. Bilateral complete breast ultrasound visualizing all 4 quadrants and the retroareolar regions was performed. No suspicious cystic or solid mass identified. IMPRESSION: BENIGN Negative screening ultrasound. Given the patient's young age and family history, continued yearly screening with breast MRI should be considered. Also, if not already performed, genetic counseling/testing should be considered. There is no sonographic evidence of malignancy. A 1 year screening ultrasound/MRI is recommended. EDWARD ROSARIO MD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 Intoxication Reason Comments Shortness of Breath Pt comes in with c/o cough SOB and chest pain. Pt states that it has been going on for a couple of days. Pt denies fevers but has been having chills and sweats. Pt states that her cough is a white productive cough Cough Chest Pain Reason Comments Dizziness Patient presents for dizziness for a couple of days Reason Comments Facial Swelling Pt states swelling t o right jaw/chin area x2 days <item> Privacy Markings (unrecogniz ed section and content) Section Author: [employer] PROHIBITION ON REDISCLOSURE OF CONFIDENTIAL INFORMATION This notice accompanies a disclosure of information concerning a client made to you with the consent of such client. Care Teams (unrecognized sec tion and content) Team Status: Active Member Role Status Dates Rice Milling Supervisor Primary Care Provider Active Start: April 30, 2024 Brandyn Gomez Family Provider Active Start: April 30, 2024 Jamie Quinones Emergency Provider Active Start: Virginie 2023 LOS AMAYA Emergency Contact #1 Active KATIE AMAYA Emergency Contact #2 Active Team Status: Active Member Role Status Dates DOMINGO HARLEY Primary Care Provider Active Team Status: Inactive Member Role Status Dates CRICKET KEYS Primary Care Provider Active Start: September 29, 2024 End: September 29, 2024 Kailash Andrade MD Emergency Provider Active Start: September 29, 2024 End: September 29, 2024 Principal Software Engineer Relationship Specialty Start Date End Date Katie Torres [address] [place] [address] PCP - General 09/29/15 Principal Software Engineer Relationship Specialty Start Date End Date Katie Torres [address] [place] [address] PCP - General 09/29/15 Principal Software Engineer Relationship Specialty Start Date End Date Katie Torres [address] [place] [address] PCP - General 09/29/15 Goals (unrecognized section and content) Goals may be documented in a n alternate sectionGoals may be documented in an alternate section Scheduled Active and Recently Administ ered Medications (unrecognized section and content) Medication Order 04/25/2025 04/26/2025 04/27/2025 dexAMETHasone (Decadron) injection 4 mg (COMPLETED) 4 mg, IntraVENous, Once, On Jayda 04/26/25 at 0, For 1 dose 2230 (Given - Provider: Rosalie Thomas RN) ketorolac (Toradol) injection 30 mg (COMPLETED) 30 mg, IntraVENous, Once, On Jayda 04/26/25 at 0, For 1 dose 2228 (Given - Provider: Rosalie Thomas, BRANDON) meclizine (Antivert) tablet 25 mg (COMPLETED) 25 mg, Oral, Once, On Jayda 04/26/25 at 0, For 1 dose 2228 (Given - Provider: Rosalie Thomas, BRANDON) ondansetron (Zofran) injection 4 mg (COMPLETED) 4 mg, IntraVENous, Once, On Jayda 04/26/25 at 0, For 1 dose 223 (Given - Provider: Rosalie Thomas, BRANDON) sodium chloride 0.9 % bolus 1,000 mL (COMPLETED) 1,000 mL, IntraVENous, at 1,000 mL/hr, Administer over 1 Hours, Once, On Jayda 04/26/25 at 0, For 1 dose 223 (New Bag - Provider: Rosalie Thomas, BRANDON) 005 (Stopped - Provider: Jimbo Toth RN) Scheduled Medication Order 05/12/2025 05/13/2025 05/14/2025 Cariprazine capsule 1.5 mg (COMPLETED) 1.5 mg, Oral, Once, On Wed05/14/25 at 0245, For 1 dose, Do not crush, chew, or split. 0309 (Given - Provid er: Mendoza Reza RN) clindamycin (Cleocin) capsule 300 mg (COMPLETED) 300 mg, Oral, Once, On Wed05/14/25 at 0100, For 1 dose, Suspected Indication (Select all that apply): Skin and Soft Tissue Infection 0102 (Given - Provid er: Lydia Marques RN) lamoTRIgine (LaMICtal) tablet 150 mg (COMPLETED) 150 mg, Oral, Once, On Wed05/14/25 at 0245, For 1 dose 0309 (Given - Provid er: Mendoza Reza RN) lidocaine-EPINEPHrine (Xylocaine W/EPI) 1 %-[id number] injection 10 mL (COMPLETED) 10 mL, Infiltration, Once, On Wed05/14/25 at 0100, For 1 dose 0154 (Given by Other - Provider: Lydia Marquse RN - Reason: Other - Comment: in procedure) LORazepam (Ativan) tablet 0.5 mg (COMPLETED) 0.5 mg, Oral, Once, On Wed05/14/25 at 0200, For 1 dose 0157 (Given - Provid er: Lydia Marques RN) methocarbamol (Robaxin) tablet 500 mg (COMPLETED) 500 mg, Oral, Once, On Wed05/14/25 at 0210, For 1 dose 0217 (Given - Provid er: Nelson Alves RN) FOR RECORDS PERTAINING TO PATIENTS WHO ARE OR HAVE BEEN ENROLLED IN A CHEMICAL DEPENDENCY/SUBSTANCEABUSE PROGRAM, SOME INFORMATION MAY BE OMITTED. This clinical summary was aggregated from multiple sources. Caution should be exercised in using it in the provision of clinical care. This summary normalizes information from multiple sources, and as a consequence, information in this document may materially change the coding, format and clinical context of patient data. In addition, data may be omitted in some cases. CLINICAL DECISIONS SHOULD BE BASED ON THE PRIMARY CLINICAL RECORDS. [facility] [facility]. provides no warranty or guarantee of the accuracy or completeness of information in this document.
--- NOTE | 2025-08-26 04:15 | RAD_ITS ---
PROCEDURE: ANKLE MIN 3 VIEWS 08/26/2025 REASON FOR EXAM: PAIN TECHNIQUE: Procedure Code: RADANK Modality: DX Procedure: ANKLE MIN 3 VIEWS Laterality: Right COMPARISON: None available. FINDINGS: Bones: No acute fractures. No suspicious osseous lesions. Joints: Normal alignment. Mortise appears intact. No effusion. Soft tissues: Soft tissues are unremarkable. RAD/Ankle min 3 Views IMPRESSION: NO ACUTE FRACTURE OR DISLOCATION. Reading [facility]
--- NOTE | 2025-08-26 04:47 | EX.ED.DYSGE1 ---
HPI History of Present Illness Chief Complaint: Fall Informant: patient Narrative Narrative: Patient is a 30-year-old female with past medical history of bipolar disorder. She states that she gets up early for work. She states she got up as she normally would around 3 AM and showered before work. She states she was in the shower and slipped on the wet floor. She states she twisted her right ankle as she fell and struck the back of her head. She denies any loss of consciousness history of bleeding disorder or blood thinner use. However she states she has a headache and nausea following the trauma and also pain in the ankle with difficulty walking and with concern for underlying injury she presents for evaluation. [facility] Medical History Stroke Heart attack Epilepsy Bipolar 1 disorder, depressed Home Medications ?Medication ?Instructions ?Recorded ?Last Taken ?Type oxycodone-acetaminophen 5 mg-325 1 tab PO Q6H PRN pain 3 days #12 08/17/25 Unknown Rx mg tablet (Percocet) tabs lamotrigine 150 mg tablet 150 mg PO BID #30 tabs 08/22/25 Unknown Rx (Lamictal) ondansetron 4 mg disintegrating 4 mg PO TID PRN nausea and 08/26/25 Unknown Rx tablet vomiting #21 tabs oxycodone-acetaminophen 5 mg-325 1 tab PO Q6H PRN pain 3 days #12 08/26/25 Unknown Rx mg tablet (Percocet) tabs Allergy/AdvReac Type Severity Reaction Status Date / Time amoxicillin Allergy Anaphylaxis Verified 08/26/25 03:35 Penicillins Allergy Anaphylaxis Verified 08/26/25 03:35 Family History Father Diabetes Mother Heart problem Surgical History H/O wisdom tooth extraction H/O section Hx of cholecystectomy Social History household members: spouse and children current occupational status: unemployed Smoking Status: Light Smoker (<10/day) ROS ROS ED Constitutional Constitutional ED: Denies chills or fever(s) Eyes Eyes: Denies blurry vision or change in vision ENT ENT ED: Denies sore throat Cardiovascular Cardiovascular: Reports other Details: Negative syncope ; Denies chest pain, palpitations or racing heartbeat Respiratory/Chest Respiratory/Chest: Denies cough or dyspnea Gastrointestinal Gastrointestinal: Reports nausea; Denies abdominal pain, diarrhea or vomiting Musculoskeletal Musculoskeletal: Reports other Details: Positive right ankle pain ; Denies back pain or neck pain Integumentary Denies rash Neurologic Neurologic: Reports headache(s); Denies paresthesias or weakness Hematologic/Lymphatic Hematologic/Lymphatic: Denies easy bleeding or easy bruising EXAM Physical Exam Const Vital Signs: 08/26/25 03:35 08/26/25 03:35 Temperature 97.5 F L Temperature Source Oral Pulse Rate 110 H Respiratory Rate 18 Respiratory Effort Normal Respiratory Depth Normal Respiratory Pattern Normal Blood Pressure 160/101 H Blood Pressure Mean 120 Pulse Ox 98 Oxygen Delivery Method Room Air Room Air Positive well nourished and well developed General Appearance ED: well developed HEENT HEENT Narrative: There is a 1 x 2 hematoma along the midportion of the occipital section of the scalp consistent with report of trauma However no signs of depressed or basilar skull fracture Eyes PERRL and EOMs intact bilaterally Neck supple Neck Narrative: No bony deformity or step-off of the cervical spine No midline tenderness to palpation Chest Wall palpation of chest normal Resp normal respiratory effort and clear to auscultation bilaterally Cardio regular rate and regular rhythm Extremity Extremity Narrative: Right lower extremity is neurovascularly intact. There is mild diffuse soft tissue swelling of the right ankle without obvious bony deformity or joint effusion. Ankle ligaments are intact and Achilles tendon is normal. There is pain with palpation diffusely but greatest over top of the medial malleolus. Remainder of the exam is normal Neuro oriented x3, CN's II-XII intact bilaterally and no sensory deficits noted Sensorium / Orientation: alert Psych mental status grossly normal Skin no rashes or lesions noted Skin Narrative: Soft tissue swelling to the right ankle as documented above without abrasions or ecchymosis Scalp hematoma also as documented above MDM MDM MDM Narrative Medical decision making narrative: Patient arrived to ER hypertensive but otherwise with stable vitals. She reported a mechanical fall and therefore I felt no need for cardiac or syncope workup. As she did strike the back of her head and reports nausea there is concern for a traumatic skull fracture versus traumatic subarachnoid or subdural hemorrhage. Therefore CT was obtained. As there was no bony deformity or step-off of the cervical spine I felt no need for a neck CT has had low concern for compression fracture. There is no obvious bony deformity of the ankle but with concern for ankle sprain versus fracture and x-ray was ordered. The head CT revealed no acute traumatic findings. Ankle x-ray shows what appears to be a old fracture to the medial malleolus however there is a new faint line of the medial malleolus extending horizontally towards the syndesmosis which would make me concerned for a new nondisplaced fracture. As it is at the syndesmosis it is a Barr B fracture and is otherwise stable. She is also closed and neurovascularly intact and therefore there is no need for emergent orthopedic or podiatry consultation. Because of the concern for a new fracture should be placed in a walking boot for stabilization and can follow-up with podiatry to discuss further treatment options or further testing. History & Record Review Discussion w/independent historian: Patient Radiography Diagnostic Testing: Clinical Impression(s) from Imaging Studies Brain CT 08/26/25 03:46 IMPRESSION: No intracranial hemorrhage. No mass effect or midline shift. Reading Location: [facility] Right ankle x-ray as interpreted by the emergency medicine physician reveals a old nonunion fracture of the right malleolus with questionable new fracture line at the syndesmosis. Discharge Plan Triage Chief Complaint: Fall ED Provider: Constantine Lozano Dx/Rx/DC Orders Clinical Impression: Closed head injury, Injury of right ankle, Bipolar disorder, Accidental fall Instructions: ED Head Injury (Adult), ED Walker Boot Prescriptions: New ondansetron 4 mg tablet,disintegrating 4 mg PO TID PRN (Reason: nausea and vomiting) Qty: 21 0RF oxycodone-acetaminophen [Percocet] 5-325 mg tablet 1 tab PO Q6H PRN (Reason: pain) 3 Days Qty: 12 0RF No Action oxycodone-acetaminophen [Percocet] 5-325 mg tablet 1 tab PO Q6H PRN (Reason: pain) 3 Days Qty: 12 0RF lamotrigine [Lamictal] 150 mg tablet 150 mg PO BID Qty: 30 0RF Stand Alone Forms: ED Work / School Excuse Primary Care Provider: Domingo Edwards Referrals: Naveed Bustillo DPM [Med Staff - Active Staff, Podiatry] Domingo Edwards DO [Primary Care Provider, Family Practice] Activity Restrictions/Additional Instructions: Your head CT revealed no sign of skull fracture or brain bleed. The x-ray of your ankle however showed a potential fracture however I cannot discern if this is a new or old injury. Therefore wear your walking boot to provide stabilization. Follow-up with podiatry to discuss further evaluation and treatment options and return to the ER should you have any further concerns. Print Language: Icelandic Disposition Disposition: Home, Self Care
[2025-08-26 05:14] VITALS: BP 124/88; PULSE 86; RESP 20; TEMP 37.1; O2SAT 96
== END 2025-08-26 05:15 | disposition home or self-care (01) ==
PROVIDERS: Emergency Provider Emergency Medicine; PCP Student in an Organized Health Care Education/Training Program; Visit Provider Emergency Medicine
DX: S09.90XA Unspecified injury of head, initial encounter (principal); F31.9 Bipolar disorder, unspecified; F17.200 Nicotine dependence, unspecified, uncomplicated; S99.911A Unspecified injury of right ankle, initial encounter; W18.2XXA Fall in (into) shower or empty bathtub, initial encounter; R51.9 Headache, unspecified
CPT/HCPCS: 70450; 73610; 99283; A4216

== ENCOUNTER 2025-08-31 04:43 | Emergency (ER) | payer MEDICAID, SELFPAY ==
[2025-08-31 04:44] VITALS: BP 141/82; PULSE 89; RESP 16; TEMP 36.9; O2SAT 97; BMI 49.3
--- NOTE | 2025-08-31 05:08 | ED.VIS.LOWEX ---
HPI History of Present Illness Chief Complaint: Lower Extremity Injury Informant: patient Narrative Narrative: Patient is a 30-year-old female presenting with worsening ankle pain radiating to the hip. - Reports ankle pain radiating to the hip, described as a drilling sensation. - Pain has worsened since last ED visit, despite wearing a boot. - Denies known trauma or re-injury, though niece recently stepped on the ankle. - Scheduled for surgery 2 days before [facility]. - Taking Tylenol and previously prescribed Percocet; reports minimal relief. - Lives on the third floor, reports difficulty with stairs due to boot instability. [facility], [facility] Medical History Stroke Heart attack Epilepsy Bipolar 1 disorder, depressed Home Medications ?Medication ?Instructions ?Recorded ?Last Taken ?Type lamotrigine 150 mg tablet 150 mg PO BID #30 tabs 08/22/25 Unknown Rx (Lamictal) ondansetron 4 mg disintegrating 4 mg PO TID PRN nausea and 08/26/25 Unknown Rx tablet vomiting #21 tabs Allergy/AdvReac Type Severity Reaction Status Date / Time amoxicillin Allergy Anaphylaxis Verified 08/31/25 04:50 Penicillins Allergy Anaphylaxis Verified 08/31/25 04:50 Family History Father Diabetes Mother Heart problem Surgical History H/O wisdom tooth extraction H/O section Hx of cholecystectomy Social History household members: spouse and children current occupational status: unemployed Smoking Status: Light Smoker (<10/day) ROS ROS ED Constitutional Constitutional ED: Denies chills or fever(s) Musculoskeletal Musculoskeletal: Reports extremity pain; Denies neck pain Integumentary Denies Abrasions, rash or wounds Neurologic Neurologic: Denies paresthesias or weakness EXAM Physical Exam Const Vital Signs: 08/31/25 04:44 Temperature 98.4 F Temperature Source Oral Pulse Rate 89 Respiratory Rate 16 Blood Pressure 141/82 H Blood Pressure Mean 101 Pulse Ox 97 Oxygen Delivery Method Room Air Positive well nourished, well developed and obese General Appearance ED: well developed and NAD Nutritional Appearance: obese Neck full ROM and supple Back/Spine normal ROM and normal to inspection Extremity normal to inspection and full ROM Extremity Narrative: Mild tenderness anterior aspect of the right ankle, there is no malleoli or pain, there is no other pain in the lower leg with palpation, she is limited range of motion of the ankle due to pain all compartments are soft and nondistended neurovascular intact distally. Neuro oriented x3, no focal motor deficits and no sensory deficits noted Sensorium / Orientation: alert Psych mental status grossly normal and thought process normal Skin no wounds Rashes: no rashes MDM MDM MDM Narrative Medical decision making narrative: Assessment: The patient is a 30-year-old female presenting for persistent right ankle pain radiating up to the hip after a prior twisting injury. She has had three prior ED/outpatient evaluations over the last two weeks; ankle radiographs were interpreted by radiology as negative for acute fracture, though an earlier ED read suggested possible syndesmotic injury. Orthopedics has scheduled ankle surgery before . Tonight she reports discomfort from the walking boot allowing excess foot movement rather than new trauma; she denies reinjury. On exam the ankle joint is stable, compartments soft, distal pulses bounding, intact sensation, full knee/hip ROM, and she ambulated the hallway without difficulty in the boot. Given the benign exam and prior negative imaging, current symptoms are most consistent with mechanical irritation from boot instability rather than progression of bony injury. Plan: - Issued crutches for partial weight-bearing support to reduce boot motion and pain. - No additional opioid prescription provided due to two recent oxycodone fills; patient agrees. - Encouraged continuation of scheduled orthopedic follow-up and to return for worsening pain, numbness, or inability to bear weight. Discharge Plan Triage Chief Complaint: Lower Extremity Injury ED Provider: Bebeto Salas Dx/Rx/DC Orders Clinical Impression: Pain in right ankle and joints of right foot Instructions: ED Crutch Walking, ED Walker Boot Prescriptions: No Action lamotrigine [Lamictal] 150 mg tablet 150 mg PO BID Qty: 30 0RF ondansetron 4 mg tablet,disintegrating 4 mg PO TID PRN (Reason: nausea and vomiting) Qty: 21 0RF Primary Care Provider: Domingo Edwards Referrals: your ortho [Other] Print Language: Macedonian Disposition Disposition: Home, Self Care
--- OUTSIDE RECORDS SUMMARY | 2025-08-31 05:12 | XMS RPT_ITS | CCD ---
Author Organization [facility] Care Team Providers Care [employer] Piping Designer Name Role Phone NELSON VALADEZ Unavailable Unavailable JOSE ALEMAN Unavailable Unavailable CLAIR LAURENT Unavailable Unavailable KYLEIGH NAGY Unavailable Unavailab le PHYSICIAN, NONE Unavailable Unavailable Katie Torres Primary Care Provider [phone] Katie Torres Primary Care Provider Unknown, Pcp Unavailable Unavailable Peter Westbrook Unavailable Unavailable Call, On Primary Care Provider UnavailDaylin Crowe Emergency Provider [phone] Brandyn Gomez Primary Care Provider [phone] Call, On Primary Care Provider UnavailBrandyn Singleton [...] Attending Unavailable Katie Torres Primary Care Provider EAN WOODS Referring Unavailable KATIE TORRES Primary Care Unavailable DIAMOND QUIROZ Attending Unavailable KATIE TORRES Primary Care Unavailable EMANUEL GODINEZ Attending Unavailable KATIE TORRES Primary Care Unavailable Constantine Lozano Attending Unavailable NOT, DEFINED Primary Care Unavailable Domingo Harley Primary Care Unavailable Diana Gardner Attending Unavailable Constantine Lozano Attending Unavailable Domingo Harley Primary Care Unavailable Allergies Allergy Classification Reported Allergen(s) Allergy Type Date of Onset Reaction(s) Facility (13 sources) Codeine Drug Allergy 03-30-20 16 [place], [place] (4 sources) Latex Propensity to adverse reactions to drug 03-30-20 16 [place], [place] (3 sources) Penicillins Propensity to adverse reactions to drug 08-05-20 16 [place] (2 sources) Acetaminophen Drug Allergy 03-30-20 16 [facility] (2 sources) Ibuprofen Drug Allergy 03-30-20 16 [facility] (2 sources) Penicillins Allergy to Substance 03-30-20 16 [facility] (2 sources) Sulfamethoxazole / Trimethoprim Drug Allergy 03-30-20 16 [facility] (1 source) Acetaminophen Drug Allergy 03-30-20 16 [facility] (1 source) Codeine Drug Allergy 03-30-20 16 [facility] (1 source) Ibuprofen Drug Allergy 03-30-20 16 [facility] (1 source) Latex Drug allergy (disorder) 03-30-20 16 [facility] (1 source) Penicillins Drug allergy (disorder) 03-30-20 16 [facility] (1 source) Sulfamethoxazole Drug Allergy 03-30-20 16 [facility] (2 sources) Banana Extract; Translations: [banana] Drug Allergy 09-29-20 [facility] (2 sources) strawberry allergenic extract; Translations: [strawberry] Drug Allergy 09-29-20 [facility] (2 sources) tomato allergenic extract; Translations: [tomato] Drug Allergy 09-29-20 [facility] (2 sources) all peppers; Translations: [all peppers] Allergy to substance 09-29-20 [facility] (2 sources) dmitri; Translations: [green] Allergy to substance 09-29-20 [facility] (1 source) Codeine Drug Allergy 09-29-20 [facility] [place] (2 sources) Penicillins Drug allergy (disorder) 09-29-20 [facility] [place] (8 sources) Acetaminophen Drug Allergy 04-26-20 25 [facility] (8 sources) Amoxicillin Drug Allergy 04-26-20 25 [facility] (8 sources) Latex Allergy to substance 08-05-20 [facility] (8 sources) Penicillins Drug Allergy 04-26-20 [facility] (1 source) Amoxicillin Drug Allergy 08-26-20 [facility] Repository Medications Current Medications Medication Drug Class(es) [...] oral solution (1 source) alpha-Adrenergic Agonist, Uncompetitive G-fijrpu-Q-aspartat e Receptor Antagonist, Sigma-1 Agonist Start: 11-10-2019 [...] mg, IntraVENous, Once, On Jayda 04/26/25 at 2040, For 1 dose EPINEPHrine 0.01 mg/ml / [...] End: 04-26-2025 30 mg, IntraVENous, Once, On Jayda 04/26/25 at 2040, For 1 dose lamoTRIgine 150 [...] ofran Odt] 4 MG PO EVERY SIX [id number] 31, 2016 Active 50 ml sodium chloride [...] migraine (1 source) Headache Onset: 02-15-2018 Episodic Nonspecific chest pain (1 source) Chest pain, unspecified; Translations: [Chest pain, unspecified] Onset: 08-28-2025 Episodic Open wounds of head; neck; and trunk (1 source) Laceration of eyelid; Translations: [Other specified open wounds of ocular adnexa] 02-21-2022 Episodic Other gastrointestinal disorders (2 sources) Constipation; Translations: [Constipation, unspecified] 03-31-2016 Episodic Other injuries and conditions due to external causes (1 source) Unspecified injury of right ankle, initial encounter; Translations: [Unspecified injury of right ankle, initial encounter] Onset: 08-26-2025 Episodic Other non-traumatic joint disorders (1 source) [...] Test Name Value Interpretation Reference Range Facility Ankle min 3 Viewson 08-26-20 Ankle min 3 Views [facility] Imaging Services [address] [place], [place] [address] Ankle min 3 Views MR#: [id number] Acct: [id number] Name: NADIA BROWN Rep #: [id number] : 1995 F 30 From: Bebeto Cerda MD PCP: Dr. Domingo Harley DO Status: DEP ER Study: Ankle min 3 Views Date of Exam: 08/26/25 Exam# [id number] Ordering Dr: Constantine Lozano DO PROCEDURE: ANKLE MIN 3 VIEWS 08/26/2025 REASON FOR EXAM: PAIN TECHNIQUE: Procedure Code: RADANK Modality: DX Procedure: ANKLE MIN 3 VIEWS Laterality: Right COMPARISON: None available. FINDINGS: Bones: No acute fractures. No suspicious osseous lesions. Joints: Normal alignment. Mortise appears intact. No effusion. Soft tissues: Soft tissues are unremarkable. RAD/Ankle min 3 Views IMPRESSION: NO ACUTE FRACTURE OR DISLOCATION. Reading Location: [facility] CC: Dr. Domingo Harley DO; Constantine Lozano DO Fellmongery Worker: Signed Normal [facility] Brain/Head without Contrasto n 08-26-2025 Brain/Head without Contrast [facility] Imaging Services [address], [place] [address] Brain/Head without Contrast MR#: [id number] Acct: [id number] Name: NADIA BROWN Rep #: [id number] : 1995 F 30 From: Bebeto Cerda MD PCP: Dr. Domingo Harley DO Status: REG ER Study: Brain/Head without Contrast Date of Exam: 08/08 08/02 Exam# [id number] Ordering Dr: Constantine Lozano DO PROCEDURE: BRAIN/HEAD WITHOUT CONTRAST 08/26/2025 REASON FOR EXAM: HEAD INJURY TECHNIQUE: Procedure Code: CTBR Modality: CT Procedure: BRAIN/HEAD WITHOUT CONTRAST Coronal and Sagittal reconstruction series were provided. One or more dose reduction techniques were used (e.g., Automated exposure control, adjustment of the mA and/or kV according to patient size, use of iterative reconstruction technique. COMPARISON: None available. FINDINGS: There is no extra-axial or intra-axial intracranial hemorrhage. No mass effect or midline shift is seen. The ventricles, sulci, and cisterns are normal in size and shape for the patient's age. There is normal becerra-white matter differentiation. The posterior fossa is grossly unremarkable. The skull is unremarkable. Visualized paranasal sinuses are clear. The mastoid air cells show normal translucency. CT/Brain/Head without Contrast IMPRESSION: No intracranial hemorrhage. No mass effect or midline shift. Reading Location: [facility] CC: Dr. Domingo Harley DO; Constantine Lozano DO Fellmongery Worker: Signed Normal [facility] Emergency Department Summary on 08-26-2025 Emergency Department Summary [facility] Medical Records Department [address] [place] [address] Emergency Department Summary 08/26/25 MR#: [id number] Acct: [id number] Name: NADIA BROWN Rep #: [id number] : 1995 30 From: Constantine Lozano DO PCP: Dr. Domingo Harley DO Status:REG ER Location: ED HPI History of Present Illness Chief Complaint: Fall Informant: patient Narrative Narrative: Patient is a 30-year-old female with past medical history of bipolar disorder. She states that she gets up early for work. She states she got up as she normally would around 3 AM and showered before work. She states she was in the shower and slipped on the wet floor. She states she twisted her right ankle as she fell and struck the back of her head. She denies any loss of consciousness history of bleeding disorder or blood thinner use. However she states she has a headache and nausea following the trauma and also pain in the ankle with difficulty walking and with concern for underlying injury she presents for evaluation. [facility] Medical History Stroke Heart attack Epilepsy Bipolar 1 disorder, depressed Home Medications ???Medication ???Instructions ???Recorded ???Last Taken ???Type oxycodone-acetaminophen 5 mg-325 1 tab PO Q6H PRN pain 3 days #12 1 Unknown Rx mg tablet (Percocet) tabs lamotrigine 150 mg tablet 150 mg PO BID #30 tabs 08/22/25 Un known Rx (Lamictal) ondansetron 4 mg disintegrating 4 mg PO TID PRN nausea and 5 Unknown Rx tablet vomiting #21 tabs oxycodone-acetaminophen 5 mg-325 1 tab PO Q6H PRN pain 3 days #12 1 Unknown Rx mg tablet (Percocet) tabs Allergy/AdvReac Type Severity Reaction Status Date / Time amoxicillin Allergy Anaphylaxis Verified 08/26/25 03:35 Penicillins Allergy Anaphylaxis Verified 08/26/25 03:35 Family History Father Diabetes Mother Heart problem [...] other Details: Negative syncope ; Denies chest pain, palpitations or racing heartbeat Respiratory/Chest Respiratory/Chest: Denies cough or dyspnea Gastrointestinal Gastrointestinal: Reports nausea; Denies abdominal pain, diarrhea or vomiting Musculoskeletal Musculoskeletal: Reports other Details: Positive right ankle pain ; Denies back pain or neck pain Integumentary Denies rash Neurologic Neurologic: Reports headache(s); Denies paresthesias or weakness Hematologic/Lymphatic Hematologic/Lymphatic: Denies easy bleeding or easy bruising EXAM Physical Exam Const Vital Signs: 08/26/25 03:35 08/26/25 03:35 Temperature 97.5 F L Temperature Source Oral Pulse Rate 110 H Respiratory Rate 18 Respiratory Effort Normal Respiratory Depth Normal Respiratory Pattern Normal Blood Pressure 160/101 H Blood Pressure Mean 120 Pulse Ox 98 Oxygen Delivery Method Room Air Room Air Positive well nourished and well developed General Appearance ED: well developed HEENT HEENT Narrative: There is a 1 x 2 hematoma along the midportion of the occipital section of the scalp consistent with report of trauma However no signs of depressed or basilar skull fracture Eyes PERRL and EOMs intact bilaterally Neck supple Neck Narrative: No bony deformity or step-off of the cervical spine No midline tenderness to palpation Chest Wall palpation of chest normal Resp normal respiratory effort and clear to auscultation bilaterally Cardio regular rate and regular rhythm Extremity Extremity Narrative: Right lower extremity is neurovascularly intact. There is mild diffuse soft tissue swelling of the right ankle without obvious bony deformity or joint effusion. Ankle ligaments are intact and Achilles tendon is normal. There is pain with palpation diffusely but greatest over top of the medial malleolus. Remainder of the exam is normal Neuro oriented x3, CN's II-XII intact bilaterally and no sensory deficits noted Sensorium / Orientation: alert Psych mental status grossly normal Skin no rashes or lesions noted Skin Narrative: Soft tissue swelling to the right ankle as documented above without abrasions or ecchymosis Scalp hematoma also as documented above MDM (more content not included)... Normal [facility] 12 Lead EKGon 08-22-2025 12 Lead EKG [facility] Cardiovascular Services [address] [place] [address] 12 Lead EKG 08/22/25 0241 MR#: [id number] Acct: [id number] Name: NDAIA BROWN Rep #: [id number] : 1995 30 From: Hayden Chaudhry MD [...] Normal sinus rhythm Normal ECG Confirmed by CRISTIAN MCKEON, HAYDEN ([id number]), rewrite editor KAYA LALA ([id number]) on 08/23/2025 9:58:15 AM Referred By: ER Confirmed By: HAYDEN CHAUDHRY MD 08/23/25 0958 Date Hayden Chaudhry MD CC: Dr. Diana Gardner MD; Dr. Domingo Harley DO Signed Normal [facility] Basic Metabolic Profile (BMP )on 08-22-2025 BUN/CRE 7.2 RATIO Low 08-27 [facility] Comment on above: Performed By: #### L 500.2500, L100.0100, L501.4021 #### [facility] Laboratory [address] [place], [place], [address] Calcium [Mass/Vol] 9.3 mg/dL Normal 7.6-11.0 [facility] Comment on above: Performed By: #### L 500.2500, L100.0100, L501.4021 #### [facility] [address] [place], [address] Chloride [Moles/Vol] 107 mmol/L Normal 98-108 [facility] Comment on above: Performed By: #### L 500.2500, L100.0100, L501.4021 #### [facility] [address] [place], [address] CO2 [Moles/Vol] 22.7 mmol/L Normal 21.0-32.0 [facility] Comment on above: Performed By: #### L 500.2500, L100.0100, L501.4021 #### [facility] [address] [place], [address] Creatinine [Mass/Vol] 0.84 mg/dL Normal 0.70-1.20 [facility] Comment on above: Performed By: #### L 500.2500, L100.0100, L501.4021 #### [facility] [address] [place], [address] ECRCL 132.42 ml/min Normal 50-250 [facility] Comment on above: Performed By: #### L 500.2500, L100.0100, L501.4021 #### [facility] [address] [place], [address] GAP 12 Normal 5-15 [facility] Comment on above: Performed By: #### L 500.2500, L100.0100, L501.4021 #### [facility] [address] [place], [address] GFR/1.73 sq M.predicted among non-blacks MDRD (S/P/Bld) [Vol rate/Area] 95 mL/min/{1.73_m2} Normal >60 [facility] Comment on above: Result Comment: mL/m in/1.73m2 CKD-EPI Creatinine Equation (2020) Performed By: #### L 500.2500, L100.0100, L501.4021 #### [facility] [address] [place], [address] Glucose [Mass/Vol] 87 mg/dL Normal 70-99 [facility] Comment on above: Performed By: #### L 500.2500, L100.0100, L501.4021 #### [facility] [address] [place], [address] Potassium [Moles/Vol] 3.3 mmol/L Normal 3.3-5.1 [facility] Comment on above: Performed By: #### L 500.2500, L100.0100, L501.4021 #### [facility] [address] [place], [address] Sodium [Moles/Vol] 141 mmol/L Normal 133-145 [facility] Comment on above: Performed By: #### L 500.2500, L100.0100, L501.4021 #### [facility] [address] [place], [address] Urea nitrogen [Mass/Vol] 6 mg/dL Normal 4-19 [facility] Comment on above: Performed By: #### L 500.2500, L100.0100, L501.4021 #### [facility] [address] [place], [address] CBC W/Diff, Automatedon 10-1 Absolute Lymph 2.87 X10 3/uL Normal 0.83-4.51 [facility] Comment on above: Performed By: #### L 500.2500, L100.0100, L501.4021 #### [facility] [address] [place], [address] Absolute Neut 3.7 X10 3/uL Normal 2.0-7.7 [facility] Comment on above: Performed By: #### L 500.2500, L100.0100, L501.4021 #### [facility] [address] [place], [address] Basophils/100 WBC (Bld) 0.6 % Normal 0-1 [facility] Comment on above: Performed By: #### L 500.2500, L100.0100, L501.4021 #### [facility] [address] [place], [address] Eosinophils/100 WBC (Bld) 1.1 % Normal 0-5 [facility] Comment on above: Performed By: #### L 500.2500, L100.0100, L501.4021 #### [facility] [address] [place], [address] Erythrocyte distribution width (RBC) [Ratio] 14.7 % High 11.6-14.6 [facility] Comment on above: Performed By: #### L 500.2500, L100.0100, L501.4021 #### [facility] [address] [place], [address] Hematocrit (Bld) [Volume fraction] 35.8 % Low 37-47 [facility] Comment on above: Performed By: #### L 500.2500, L100.0100, L501.4021 #### [facility] [address] [place], [address] Hemoglobin (Bld) [Mass/Vol] 11.4 g/dL Low 12.0-15.0 [facility] Comment on above: Performed By: #### L 500.2500, L100.0100, L501.4021 #### [facility] [address] [place], [address] IG% 0.100 Normal 0.0-0.9 [facility] Comment on above: Result Comment: IG% - Immature Granulocytes (promyelocytes, myelocytes and metamyelocytes) > 1% indicates that a LEFT SHIFT is Present. Performed By: #### L 500.2500, L100.0100, L501.4021 #### [facility] [address] [place], [address] Lymphocytes/100 WBC (Bld) 39.5 % Normal 19-41 [facility] Comment on above: Performed By: #### L 500.2500, L100.0100, L501.4021 #### [facility] [address] [place], [address] MCH (RBC) [Entitic mass] 26.5 pg Low 27.0-32.0 [facility] Comment on above: Performed By: #### L 500.2500, L100.0100, L501.4021 #### [facility] [address] [place], [address] MCHC (RBC) [Mass/Vol] 31.8 g/dL Low 32-36 [facility] Comment on above: Performed By: #### L 500.2500, L100.0100, L501.4021 #### [facility] [address] [place], [address] MCV (RBC) [Entitic vol] 83.3 fL Normal 81-99 [facility] Comment on above: Performed By: #### L 500.2500, L100.0100, L501.4021 #### [facility] [address] [place], [address] Monocytes/100 WBC (Bld) 8.3 % Normal 0-10 [facility] Comment on above: Performed By: #### L 500.2500, L100.0100, L501.4021 #### [facility] [address] [place], [address] Neutrophils/100 WBC (Bld) 50.4 % Normal 47-70 [facility] Comment on above: Performed By: #### L 500.2500, L100.0100, L501.4021 #### [facility] [address] [place], [address] Nucleated RBC (Bld) [#/Vol] 0 10*3/uL Normal 0-5 [facility] Comment on above: Performed By: #### L 500.2500, L100.0100, L501.4021 #### [facility] [address] [place], [address] Platelet mean volume (Bld) [Entitic vol] 9.4 fL Normal 6.2-12.0 [facility] Comment on above: Performed By: #### L 500.2500, L100.0100, L501.4021 #### [facility] [address] [place], [address] Platelets (Bld) [#/Vol] 360 10*3/uL Normal 150-450 [facility] Comment on above: Performed By: #### L 500.2500, L100.0100, L501.4021 #### [facility] [address] [place], [address] RBC (Bld) [#/Vol] 4.30 10*6/uL Normal 4.2-5.4 [facility] Comment on above: Performed By: #### L 500.2500, L100.0100, L501.4021 #### [facility] [address] [place], [address] RDW SD 44.1 fl High 35.1-43.9 [facility] Comment on above: Performed By: #### L 500.2500, L100.0100, L501.4021 #### [facility] [address] [place], [address] WBC (Bld) [#/Vol] 7.3 10*3/uL Normal 4.4-11.0 [facility] Comment on above: Performed By: #### L 500.2500, L100.0100, L501.4021 #### [facility] [address] [place], [address] Chest PA and Lateralon 08-22 Chest PA and Lateral [facility] Imaging Services [address] [place] [address] Chest PA and Lateral MR#: [id number] Acct: [id number] Name: NADIA BROWN Rep #: [id number] : 1995 F 30 From: Charu Loyola PCP: Dr. Domingo Harley DO Status: [facility] ER Study: Chest PA and Lateral Date of Exam: 08/22/25 Exam# [id number] Ordering Dr: Diana Gardner MD PROCEDURE: CHEST PA AND LATERAL 08/21/2025 REASON FOR EXAM: CHEST PAIN TECHNIQUE: Procedure Code: RADCXR Modality: DX Procedure: CHEST PA AND LATERAL FINDINGS: Mild pulmonary vascular congestion. No focal consolidation. No pleural effusion or pneumothorax. Cardiac silhouette is within normal limits. No acute fractures. RAD/Chest PA and Lateral IMPRESSION: Mild pulmonary vascular congestion. No focal consolidation. Reading Location: [facility] CC: Dr. Diana Gardner MD; Dr. Domingo Harley DO Fellmongery Worker: Signed Normal [facility] Emergency Department Summary on 08-22-2025 Emergency Department Summary [facility] Medical Records Department [address] [place] [address] Emergency Department Summary 08/22/25 MR#: [id number] Acct: [id number] Name: NADIA BROWN Rep #: [id number] : 1995 30 From: Diana Gardner MD PCP: Dr. Domingo Harley DO Status:[facility] ER Location: ED HPI History of Present [...] gets dizzy before I have a seizure. [facility] Medical History Stroke Heart attack Epilepsy Bipolar [...] normal li (more content not included)... Normal [facility] L501.4021on 08-22-2025 Trop T High Sen 7 ng/L Normal <=14 [facility] Comment on above: Performed By: #### L 500.2500, L100.0100, L501.4021 #### [facility] [address] [place], [address] ,Urineon 08-22-2025 Beta HCG ( test) Ql (U) Negative Normal [facility] Comment on above: Result Comment: Very dilute urine specimens, as indicated by a low specific gravity, may not contain district representative levels of hCG. If is still suspected, a first morning urine specimen should be collected 48 hours later and tested. Performed By: #### L 400.7600 ####[facility] [address] [place], [address] Troponin T HS 2 HRon 15- 025 Trop T High Sen 8 ng/L Normal <=14 [facility] Comment on above: Performed By: #### L 499.0042 #### [facility] [address] [place], [address] Troponin T HS 4 HRon 08-22- 025 Trop T High Sen Normal <=14 [facility] Comment on above: Result Comment: Canc elled via OM: Ordered Performed By: #### L 499.0043 #### [facility] [address] [place], [address] Emergency Department Summary on 08-17-2025 Emergency Department Summary [facility] Medical Records Department [address] [place] [address] Emergency Department Summary 08/17/25 MR#: [id number] Acct: [id number] Name: NADIA BROWN Rep #: [id number] : 1995 30 From: Constantine Lozano DO [...] injury she was brought in for evaluation. [facility] Medical History (Updated 08/18/25 @ 00:03 by [...] X-ray reve (more content not included)... Normal [facility] HIP, UNI W/ Pelvis 2-3 Views on 08-16-2025 HIP, UNI W/ Pelvis 2-3 Views [facility] Imaging Services [address] [place] [address] HIP, UNI W/ Pelvis 2-3 Views MR#: [id number] Acct: [id number] Name: NADIA BROWN Rep #: [id number] : 1995 F 30 From: Mina Sumner MD PCP: NOT,DEFINED Status: REG ER Study: HIP, UNI W/ Pelvis 2-3 Views Date of Exam: 08/02 Exam# [id number] Ordering Dr: Constantine Lozano DO PROCEDURE: LEFT [...] No acute fracture or dislocation. Reading Location: [id number] CC: DEFINED NOT; Constantine Lozano DO Fellmongery Worker: Signed [facility] [facility]LEADon 05-14-2025 ECG 12-LEAD IMPRESSION: Sinus rhythm No change compared to previous ekg Electronically Signed On 05-14-2025 08:31:10 EDT by [facility] ED Provider Noteon ED Provider Note Emergency Department Encounter [facility] EMERGENCY DEPT Patient: Nadia Brown : 1995 [...] provider for clarification.) Emanuel Godinez DO Acute [facility] Emanuel Godinez DO 05/14/25 0139 [facility] ED Provider Note EMERGENCY DEPARTMENT ENCOUNTER Pt [...] Response: Oriented Best Motor Response: Follows commands [place] Coma Scale Score: 15 PHYSICAL EXAM ED [...] Medications managed: Medications lidocaine-EPINEPHrine (Xylocaine W/EPI) 1 %-1:[id number] injection 10 mL (10 mL Infiltration Given [...] completed due (more content not included)... Normal [employer] [facility] No Panel InformationOrdered By: Fransisco Gonsalez on 05-14-2025 P Liberty 23 degrees [employer] Work Phone: AR Interval 173 ms [employer] Phone: QRS [place] 39 degrees [employer] Phone: QRSD Interval 78 ms [employer] Work Phone: QT Interval 350 ms [employer] Phone: QTC Interval 427 ms [employer] Work Phone: T Wave [place] 25 degrees [employer] Phone: [employer] Phone: No Panel Informationon 05-14 Sinus rhythm No change compared to previous ekg Electronically Signed On 05-14-2025 08:31:10 EDT by Fransisco Gandara M D - 05/14/2025 IMPRESSION: Sinus rhythm No change compared to previous ekg Electronically Signed On 05-14-2025 08:31:10 EDT by [facility] Emanuel Godinez DO 05/14/2025 6:46 AM [...] documented as signed by this procedure note Insurance Sales Supervisor(s): Dr. Godinez Glove Turner And Former Automatic: Dr. Godinez [facility] Vital signsOrdered By: Veronika Gonsalez on 05-14-2025 Heart rate 89 /min bpm [employer] Phone: ECG 12-LEADon 04-27-2025 ECG 12-LEAD IMPRESSION: Sinus tachycardia Probable left atrial enlargement Electronically Signed On 04-27-2025 00:03:28 EDT by Estefany Ring [facility] ED Nursing Noteon 04-27-2025 ED Nursing Note Pt refused vitals Normal [facility] ED Nursing Note Pt being discharged. Pt verbalized understanding of discharge instructions. Pt is A&O x3, is ambulatory, and has no questions at this time. Pt's IV has been removed. Normal [facility] No Panel InformationOrdered By: Estefany Ring on 04-27-2025 P Liberty 43 degrees [facility] [employer] Work Phone: AR Interval 154 ms [facility] Work Phone: QRS [place] 36 degrees [facility] Work Phone: QRSD Interval 84 ms [facility] Work Phone: QT Interval 321 ms [facility] [employer] Work Phone: QTC Interval 424 ms [facility] [employer] Work Phone: T Wave [place] 39 degrees [facility] [employer] Work Phone: [facility] [employer] Work Phone: No Panel Informationon 04-27 Sinus tachycardia Probable left atrial enlargement Electronically Signed On 04-27-2025 00:03:28 EDT by Estefany Ring CV Estefany Marquez D O - 04/27/2025 IMPRESSION: Sinus tachycardia Probable left atrial enlargement Electronically Signed On 04-27-2025 00:03:28 EDT by Estefany Ring [facility] Vital signsOrdered By: Omari Ring on 04-27-2025 Heart rate 105 /min bpm [facility] [employer] Work Phone: BLOOD GAS, VENOUSon 04-26-20 25 AMOUNT OF OXYGEN Normal [facility] Comment on above: Result Comment: ORDE R COMMENTS: Assessment of oxygenation is best done with an arterial blood gas determination. Reference ranges for pO2, bicarbonate, and base excess are for mixed venous blood. Specimens drawn from a peripheral vein will often have higher values. Performed By: #### L [id number] #### Construction Equipment Mechanic: ERICKSON DIETZ ([id number]) [facility] ([facility]) [address] [place] [address] Base excess Calc (BldV) [Moles/Vol] 0.3 mmol/L Normal -3.0-3.0 [facility] Comment on above: Performed By: #### L [id number] #### Construction Equipment Mechanic: ERICKSON DIETZ ([id number]) [facility] [address] [place] [address] CO2 [Moles/Vol] 26.9 mmol/L Normal 24.0-28.0 [facility] Comment on above: Performed By: #### L [id number] #### Construction Equipment Mechanic: ERICKSON DIETZ ([id number]) [facility] ([facility]) [address] [place] [address] HCO3 (Bld) [Moles/Vol] 25.6 mmol/L Normal 23.0-27.0 [facility] Comment on above: Performed By: #### L [id number] #### Construction Equipment Mechanic: ERICKSON DIETZ ([id number]) [facility] ([facility]) [address] [place] [address] Hemoglobin (Bld) [Mass/Vol] 12.4 g/dL Normal Screen only [facility] Comment on above: Performed By: #### L [id number] #### Construction Equipment Mechanic: ERICKSON DIETZ ([id number]) [facility] ([facility]) [address] [place] [address] OXYGEN (MM HG) IN VENOUS BLOOD 29.6 mm Hg Normal [facility] Comment on above: Performed By: #### L [id number] #### Construction Equipment Mechanic: ERICKSON DIETZ ([id number]) [facility] ([facility]) [address] [place] [address] OXYGEN SATURATION (%) IN VENOUS BLOOD 44.3 % Normal [facility] Comment on above: Performed By: #### L [id number] #### Construction Equipment Mechanic: ERICKSON DIETZ ([id number]) [facility] ([facility]) [address] [place] [address] [place] PCO2, LUCIAN 43.7 mm Hg Normal 40.0-55.0 [facility] Comment on above: Performed By: #### L [id number] #### Construction Equipment Mechanic: ERICKSON DIETZ ([id number]) [facility] ([facility]) [address] [place] [address] PH VENOUS 7.385 Normal 7.330-7.430 [facility] Comment on above: Performed By: #### L [id number] #### Construction Equipment Mechanic: ERICKSON DIETZ ([id number]) [facility]) [address] [place] [address] SOURCE OF OXYGEN None (Room Air) Normal [facility] Comment on above: Performed By: #### L [id number] #### Construction Equipment Mechanic: ERICKSON DIETZ ([id number]) [facility] [address] [place] [address] CBC W Auto Differential pane l (Bld)on 04-26-2025 Basophils (Bld) [#/Vol] 0.1 10*3/uL 0.0 - 0.2 10*3/uL [facility] Basophils/100 WBC (Bld) 0.4 % 0.0 - 2.0 % [facility] Eosinophils (Bld) [#/Vol] 0.1 10*3/uL 0.0 - 0.5 10*3/uL [facility] Eosinophils/100 WBC (Bld) 0.6 % 0.0 - 6.0 % [facility] Erythrocyte distribution width (RBC) [Ratio] 14.6 % 11.5 - 15.0 % [facility] Hematocrit (Bld) [Volume fraction] 37.4 % 35.0 - 47.0 % [facility] Hemoglobin (Bld) [Mass/Vol] 12 g/dL 11.7 - 16.0 g/dL [facility] Immature granulocytes (Bld) [#/Vol] 0.1 10*3/uL High NINF - 0.1 10*3/uL [facility] [employer] Immature granulocytes/100 WBC (Bld) 0.6 % 0.0 - 2.0 % [facility] Interpretation and review of laboratory results Abnormal [facility] Lymphocytes (Bld) [#/Vol] 2.9 10*3/uL 1.0 - 4.3 10*3/uL [facility] Lymphocytes/100 WBC (Bld) 25 % 15.0 - 45.0 % [facility] MCH (RBC) [Entitic mass] 26.8 pg 26.0 - 34.0 pg [facility] [employer] MCHC (RBC) [Mass/Vol] 32.1 % 30.5 - 36.0 % [facility] [employer] MCV (RBC) [Entitic vol] 83.5 fL 77.0 - 99.0 fL [facility] Monocytes (Bld) [#/Vol] 0.9 10*3/uL 0.0 - 0.9 10*3/uL [facility] Monocytes/100 WBC (Bld) 7.7 % 5.0 - 13.0 % [facility] Neutrophils (Bld) [#/Vol] 7.7 10*3/uL High 1.8 - 7.5 10*3/uL [facility] Neutrophils/100 WBC (Bld) 65.7 % 38.0 - 82.0 % [facility] Nucleated RBC/100 WBC (Bld) [Ratio] 0 % [facility] [employer] Platelet mean volume (Bld) [Entitic vol] 9.2 fL 9.0 - 12.7 fL [facility] Platelets (Bld) [#/Vol] 369 10*3/uL 140 - 440 10*3/uL [facility] RBC (Bld) [#/Vol] 4.48 10*6/uL 3.80 - 5.2 0 10*6/uL [facility] WBC (Bld) [#/Vol] 11.7 10*3/uL High 3.6 - 10.7 10*3/uL [facility] CBC WITH AUTO DIFFERENTIALon 04-26-2025 Basophils (Bld) [#/Vol] 0.1 10*3/uL Normal 0.0-0.2 [facility] Comment on above: Performed By: #### L [id number] #### Construction Equipment Mechanic: ERICKSON DIETZ ([id number]) [facility] ([facility]) [address] [place] [address] Basophils/100 WBC (Bld) 0.4 % Normal 0.0-2.0 [facility] Comment on above: Performed By: #### L [id number] #### Construction Equipment Mechanic: ERICKSON DIETZ ([id number]) [facility] ([facility]) [address] [place] [address] Eosinophils (Bld) [#/Vol] 0.1 10*3/uL Normal 0.0-0.5 [facility] Comment on above: Performed By: #### L [id number] #### Construction Equipment Mechanic: ERICKSON DIETZ ([id number]) [facility]) [address] [place] [address] Eosinophils/100 WBC (Bld) 0.6 % Normal 0.0-6.0 [facility] Comment on above: Performed By: #### L [id number] #### Construction Equipment Mechanic: ERICKSON DIETZ ([id number]) [facility]) [address] [place] [address] Erythrocyte distribution width (RBC) [Ratio] 14.6 % Normal 11.5-15.0 [facility] Comment on above: Performed By: #### L [id number] #### Construction Equipment Mechanic: ERICKSON DIETZ ([id number]) [facility]) [address] [place] [address] Hematocrit (Bld) [Volume fraction] 37.4 % Normal 35.0-47.0 [facility] Comment on above: Performed By: #### L [id number] #### Construction Equipment Mechanic: ERICKSON DIETZ ([id number]) [facility]) [address] [place] [address] Hemoglobin (Bld) [Mass/Vol] 12.0 g/dL Normal 11.7-16.0 [facility] Comment on above: Performed By: #### L [id number] #### Construction Equipment Mechanic: REICKSON DIETZ ([id number]) [facility]) [address] [place] [address] IMMATURE GRANS % 0.6 % Normal 0.0-2.0 [facility] Comment on above: Performed By: #### L [id number] #### Construction Equipment Mechanic: ERICKSON DIETZ ([id number]) [facility]) [address] [place] [address] IMMATURE GRANS ABSOLUTE 0.1 10*3/uL High <0.1 [facility] Comment on above: Performed By: #### L [id number] #### Construction Equipment Mechanic: ERICKSON DIETZ ([id number]) [facility]) [address] [place] [address] Lymphocytes (Bld) [#/Vol] 2.9 10*3/uL Normal 1.0-4.3 [facility] Comment on above: Performed By: #### L [id number] #### Construction Equipment Mechanic: ERICKSON DIETZ ([id number]) [facility]) [address] [place] [address] Lymphocytes/100 WBC (Bld) 25.0 % Normal 15.0-45.0 [facility] Comment on above: Performed By: #### L [id number] #### Construction Equipment Mechanic: ERICKSON DIETZ ([id number]) [facility]) [address] [place] [address] MCH (RBC) [Entitic mass] 26.8 pg Normal 26.0-34.0 [facility] Comment on above: Performed By: #### L [id number] #### Construction Equipment Mechanic: ERICKSON DIETZ ([id number]) [facility]) [address] [place] [address] MCHC 32.1 % Normal 30.5-36.0 [facility] Comment on above: Performed By: #### L [id number] #### Construction Equipment Mechanic: ERICKSON DIETZ ([id number]) [facility]) [address] [place] [address] MCV (RBC) [Entitic vol] 83.5 fL Normal 77.0-99.0 [facility] Comment on above: Performed By: #### L [id number] #### Construction Equipment Mechanic: ERICKSON DIETZ ([id number]) [facility]) [address] [place] [address] Monocytes (Bld) [#/Vol] 0.9 10*3/uL Normal 0.0-0.9 [facility] Comment on above: Performed By: #### L [id number] #### Construction Equipment Mechanic: ERICKSON [id number]) [facility] ([facility]) [address] [place] [address] Monocytes/100 WBC (Bld) 7.7 % Normal 5.0-13.0 [facility] Comment on above: Performed By: #### L [id number] #### Construction Equipment Mechanic: ERICKOSN DIETZ ([id number]) [facility] ([facility]) [address] [place] [address] [place] NEUTROPHILS ABSOLUTE 7.7 10*3/uL High 1.8-7.5 [facility] Comment on above: Performed By: #### L [id number] #### Construction Equipment Mechanic: ERICKSON DIETZ ([id number]) [facility] ([facility]) [address] [place] [address] Neutrophils/100 WBC (Bld) 65.7 % Normal 38.0-82.0 [facility] Comment on above: Performed By: #### L [id number] #### Construction Equipment Mechanic: ERICKSON DIETZ ([id number]) [facility] ([facility]) [address] [place] [address] NRBC 0.0 /100 WBCs Normal 0.0-2.0 [facility] Comment on above: Performed By: #### L [id number] #### Construction Equipment Mechanic: ERICKSON DIETZ ([id number]) [facility] ([facility]) [address] [place] [address] Platelet mean volume (Bld) [Entitic vol] 9.2 fL Normal 9.0-12.7 [facility] Comment on above: Performed By: #### L [id number] #### Construction Equipment Mechanic: ERICKSON DIETZ ([id number]) [facility] ([facility]) [address] [place] [address] [place] Platelets (Bld) [#/Vol] 369 10*3/uL Normal 140-440 [facility] Comment on above: Performed By: #### L [id number] #### Construction Equipment Mechanic: ERICKSON DIETZ ([id number]) [facility] ([facility]) [address] [place] [address] [place] RBC (Bld) [#/Vol] 4.48 10*6/uL Normal 3.80-5.20 [facility] Comment on above: Performed By: #### L [id number] #### Construction Equipment Mechanic: ERICKSON DIETZ ([id number]) [facility] ([facility]) [address] [place] [address] WBC (Bld) [#/Vol] 11.7 10*3/uL High 3.6-10.7 [facility] Comment on above: Performed By: #### L [id number] #### Construction Equipment Mechanic: ERICKSON DIETZ ([id number]) [facility]) [address] [place] [address] COMPLETE URINALYSIS WITH REF DIEGO TO CULTUREon 04-26-2025 BACTERIA (#/HPF) IN URINE Moderate Abnormal Negative [facility] Comment on above: Performed By: #### L [id number] #### Construction Equipment Mechanic: ERICKSON DIETZ ([id number]) [facility] ([facility]) [address] [place] [address] BILIRUBIN, TOTAL PRESENCE IN URINE Negative Normal Negative [facility] Comment on above: Performed By: #### L [id number] #### Construction Equipment Mechanic: ERICKSON DIETZ ([id number]) [facility]) [address] [place] [address] Clarity (U) Turbid Abnormal Clear [facility] Comment on above: Performed By: #### L [id number] #### Construction Equipment Mechanic: ERICKSON DIETZ ([id number]) [facility]) [address] [place] [address] Color (U) Yellow Normal Lt. Yellow [facility] Comment on above: Performed By: #### L [id number] #### Construction Equipment Mechanic: ERICKSON DIETZ ([id number]) [facility]) [address] [place] [address] GLUCOSE (MG/DL) IN URINE Normal Normal Normal (<70) [facility] Comment on above: Performed By: #### L [id number] #### Construction Equipment Mechanic: ERICKSON DIETZ ([id number]) [facility] ([facility]) [address] [place] [address] HEMOGLOBIN PRESENCE IN URINE Negative Normal Negative [facility] Comment on above: Performed By: #### L [id number] #### Construction Equipment Mechanic: ERICKSON DIETZ ([id number]) [facility] ([facility]) [address] [place] [address] HYALINE CASTS (#/LPF) IN URINE SEDIMENT BY MICROSCOPY Negative Normal Negative [facility] Comment on above: Performed By: #### L [id number] #### Construction Equipment Mechanic: ERICKSON DIETZ ([id number]) [facility]) [address] [place] [address] Ketones Ql (U) Negative Normal Negative [facility] Comment on above: Performed By: #### L [id number] #### Construction Equipment Mechanic: ERICKSON DIETZ ([id number]) [facility]) [address] [place] [address] LEUKOCYTE ESTERASE PRESENCE IN URINE BY TEST STRIP Negative Normal Negative [facility] Comment on above: Performed By: #### L [id number] #### Construction Equipment Mechanic: ERICKSON DIETZ ([id number]) [facility] ([facility]) [address] [place] [address] MUCUS (#/LPF) IN URINE SEDIMENT Few Normal Negative [facility] Comment on above: Performed By: #### L [id number] #### Construction Equipment Mechanic: ERICKSON DIETZ ([id number]) [facility] [address] [place] [address] NITRITE PRESENCE IN URINE Positive Abnormal Negative [facility] Comment on above: Performed By: #### L [id number] #### Construction Equipment Mechanic: ERICKSON DIETZ ([id number]) [facility] ([facility]) [address] [place] [address] pH (U) 5.5 [pH] Normal 5.0-8.0 [facility] Comment on above: Performed By: #### L [id number] #### Construction Equipment Mechanic: ERICKSON DIETZ ([id number]) [facility] ([facility]) [address] [place] [address] Protein (U) [Mass/Vol] 20 mg/dL Abnormal Negative [facility] Comment on above: Performed By: #### L [id number] #### Construction Equipment Mechanic: ERICKSON DIETZ ([id number]) [facility] [address] [place] [address] RBC (#/HPF) IN URINE SEDIMENT 0-2 Normal 0-2 [facility] Comment on above: Performed By: #### L [id number] #### Construction Equipment Mechanic: ERICKSON DIETZ ([id number]) [facility] ([facility]) [address] [place] [address] Specific gravity (U) [Rel density] 1.031 High 1.005-1.030 [facility] Comment on above: Result Comment: NIRAV Almodovar COMMENTS: A specimen with <=10 WBC is not consistent with inflammation. This specimen will not reflex to a urine culture. Performed By: #### L [id number] #### Construction Equipment Mechanic: ERICKSON DIETZ ([id number]) [facility] [address] [place] [address] SQUAMOUS EPITHELIAL CELLS (#/HPF) IN URINE SEDIMENT 11-25 Abnormal 3-5 [facility] Comment on above: Performed By: #### L [id number] #### Construction Equipment Mechanic: ERICKSON DIETZ ([id number]) [facility] ([facility]) [address] [place] [address] UROBILINOGEN (MG/DL) IN URINE Normal Normal Normal (0-1) [facility] Comment on above: Performed By: #### L [id number] #### Construction Equipment Mechanic: ERICKSON DIETZ ([id number]) [facility] ([facility]) [address] [place] [address] WBC (LEUKOCYTE) (#/HPF) IN URINE SEDIMENT 3-5 Normal 0-5 [facility] Comment on above: Performed By: #### L [id number] #### Construction Equipment Mechanic: ERICKSON DIETZ ([id number]) [facility] ([facility]) [address] [place] [address] COMPREHENSIVE METABOLIC PANE Adam 04-26-2025 Albumin [Mass/Vol] 3.7 g/dL Normal 3.5-5.0 [facility] Comment on above: Performed By: #### L [id number] #### Construction Equipment Mechanic: ERICKSON DIETZ ([id number]) [facility] ([facility]) [address] [place] [address] ALP [Catalytic activity/Vol] 75 U/L Normal 40-150 [facility] Comment on above: Performed By: #### L [id number] #### Construction Equipment Mechanic: ERICKSON DIETZ ([id number]) [facility] ([facility]) [address] [place] [address] ALT [Catalytic activity/Vol] 32 U/L High <30 [facility] Comment on above: Performed By: #### L [id number] #### Construction Equipment Mechanic: ERICKSON DIETZ ([id number]) [facility] ([facility]) [address] [place] [address] Anion gap [Moles/Vol] 10 mmol/L Normal 3-13 [facility] Comment on above: Performed By: #### L [id number] #### Construction Equipment Mechanic: ERICKSON DIETZ ([id number]) [facility] ([facility]) [address] [place] [address] AST [Catalytic activity/Vol] 31 U/L Normal <34 [facility] Comment on above: Performed By: #### L [id number] #### Construction Equipment Mechanic: ERICKSON DIETZ ([id number]) [facility] ([facility]) [address] [place] [address] Bilirubin [Mass/Vol] 0.5 mg/dL Normal <1.2 [facility] Comment on above: Performed By: #### L [id number] #### Construction Equipment Mechanic: ERICKSON DIETZ ([id number]) [facility] ([facility]) [address] [place] [address] Calcium [Mass/Vol] 9.2 mg/dL Normal 8.4-10.2 [facility] Comment on above: Performed By: #### L [id number] #### Construction Equipment Mechanic: ERICKSON DIETZ ([id number]) [facility] ([facility]) [address] [place] [address] Chloride [Moles/Vol] 106 mmol/L Normal 98-107 [facility] Comment on above: Performed By: #### L [id number] #### Construction Equipment Mechanic: ERICKSON DIETZ ([id number]) [facility] [address] [place] [address] [place] CO2 [Moles/Vol] 24 mmol/L Normal 22-29 [facility] Comment on above: Performed By: #### L [id number] #### Construction Equipment Mechanic: ERICKSON DIETZ ([id number]) [facility] ([facility]) [address] [place] [address] Creatinine [Mass/Vol] 0.81 mg/dL Normal 0.57-1.11 [facility] Comment on above: Performed By: #### L [id number] #### Construction Equipment Mechanic: ERICKSON DIETZ ([id number]) [facility] [address] [place] [address] GLOMERULAR FILTRATION RATE ML/MIN/1.73 SQ M.PREDICTED >90.0 Normal >60.0 [facility] Comment on above: Result Comment: Calc ulation based on the Chronic Kidney Disease Epidemiology Collaboration (CKD-EPI) equation refit without adjustment for race Performed By: #### L [id number] #### Construction Equipment Mechanic: ERICKSON DIETZ ([id number]) [facility] [address] [place] [address] [place] Glucose [Mass/Vol] 91 mg/dL Normal 74-100 [facility] Comment on above: Performed By: #### L [id number] #### Construction Equipment Mechanic: ERICKSON DIETZ ([id number]) [facility] ([facility]) [address] [place] [address] Potassium [Moles/Vol] 3.9 mmol/L Normal 3.5-5.1 [facility] Comment on above: Result Comment: [facility] potassium values may be up to 0.5 mmol/L lower than serum values. Performed By: #### L [id number] #### Construction Equipment Mechanic: ERICKSON DIETZ ([id number]) [facility]) [address] [place] [address] Protein [Mass/Vol] 7.8 g/dL Normal 6.4-8.3 [facility] Comment on above: Performed By: #### L [id number] #### Construction Equipment Mechanic: ERICKSON DIETZ ([id number]) [facility]) [address] [place] [address] Sodium [Moles/Vol] 140 mmol/L Normal 136-145 [facility] Comment on above: Performed By: #### L [id number] #### Construction Equipment Mechanic: ERICKSON DIETZ ([id number]) [facility]) [address] [place] [address] Urea nitrogen [Mass/Vol] 11 mg/dL Normal 8-21 [facility] Comment on above: Performed By: #### L [id number] #### Construction Equipment Mechanic: ERICKSON DIETZ ([id number]) [facility]) [address] [place] [address] CT HEAD WO IV CONTRASTon CT HEAD WO IV CONTRAST Patient Name: NADIA BROWN : 1995 [facility] [place]#: [id number] Exam Date/Time: 04/26/2025 21:26 Procedure: CT HEAD [...] dizziness for a couple of days ) [facility] CT Head WO contraston 2024 Imaging does not exp sandra the patient's clinical symptoms. Report Dictated on Electronically Signed By: Stefanie Cortez MD Electronically Signed Date/Time: 04/26/2025 9:[address] [facility] Patient Name: NADIA JUAN : 1995 Exam Date/Time: 04/26/2025 21:26 Procedure: [...] pneumatized. The mastoid air cells are pneumatized. [facility] Stefanie Cortez MD - 04/26/2025 Patient Name: NADIA BROWN : 1995 Exam [...] Electronically Signed Date/Time: 04/26/2025 9:36 PM EDT [facility] Radiology Study observation (narrative) [facility] CT Head WO contrastOrdered B y: Stefanie Cortez on 04-26-2025 [facility] Work Phone: Comprehensive metabolic 1998 panelon 04-26-2025 Albumin [Mass/Vol] 3.7 g/dL 3.5 - 5.0 g/dL [facility] ALP [Catalytic activity/Vol] 75 U/L 40 - 150 U/L [facility] ALT [Catalytic activity/Vol] 32 U/L High NINF - 30 U/L [facility] Anion gap [Moles/Vol] 10 mmol/L 3 - 13 mmol/L [facility] AST [Catalytic activity/Vol] 31 U/L NINF - 34 U/L [facility] Bilirubin [Mass/Vol] 0.5 mg/[facility]/dL [facility] Calcium [Mass/Vol] 9.2 mg/dL 8.4 - 10. 2 mg/dL [facility] Chloride [Moles/Vol] 106 mmol/L 98 - 10 7 mmol/L [facility] CO2 [Moles/Vol] 24 mmol/L 22 - 29 mmol/L [facility] Creatinine [Mass/Vol] 0.81 mg/dL 0.57 - 1.11 mg/dL [facility] GFR/1.73 sq M.predicted (S/P/Bld) [Vol rate/Area] - PINF [facility] Comment on above: Calculation based on the Chronic Kidney Disease Epidemiology Collaboration (CKD-EPI) equation refit without adjustment for race Glucose [Mass/Vol] 91 mg/dL 74 - 100 mg/dL [facility] Interpretation and review of laboratory results Abnormal [facility] Potassium [Moles/Vol] 3.9 mmol/L 3.5 - 5.1 mmol/L [facility] Comment on above: Plasma potassium roseanne ues may be up to 0.5 mmol/L lower than serum values. Protein [Mass/Vol] 7.8 g/dL 6.4 - 8.3 g/dL [facility] Sodium [Moles/Vol] 140 mmol/L 136 - 145 mmol/L [facility] Urea nitrogen [Mass/Vol] 11 mg/dL 8 - 21 mg/dL [facility] DRUGS OF ABUSEon 04-26-2025 AMPHETAMINE SCREEN Negative Normal [facility] Comment on above: Performed By: #### L [id number] #### Construction Equipment Mechanic: ERICKSON DIETZ ([id number]) [address] BARBITURATES SCREEN Negative Normal [facility] Comment on above: Performed By: #### L [id number] #### Construction Equipment Mechanic: ERICKSON DIETZ ([id number]) [address] BENZODIAZEPINE SCREEN Negative Normal [facility] Comment on above: Performed By: #### L [id number] #### Construction Equipment Mechanic: ERICKSON DIETZ ([id number]) [address] COCAINE METAB. SCREEN Negative Normal [facility] Comment on above: Performed By: #### L [id number] #### Construction Equipment Mechanic: ERICKSON DIETZ ([id number]) [address] FENTANYL SCREEN, UR QUAL Negative Normal [facility] Comment on above: Result Comment: ORDE R COMMENTS: The expected value for all of [...] under separate order. Performed By: #### L [id number] #### Construction Equipment Mechanic: ERICKSON DIETZ ([id number]) [facility]) [address] [place] [address] METHADONE SCREEN Negative Normal [facility] Comment on above: Performed By: #### L [id number] #### Construction Equipment Mechanic: ERICKSON DIETZ ([id number]) [facility] [address] [place] [address] OPIATES SCREEN Negative Normal [facility] Comment on above: Performed By: #### L [id number] #### Construction Equipment Mechanic: ERICKSON DIETZ ([id number]) [facility] ([facility]) [address] [place] [address] OXYCODONE SCREEN Negative Normal [facility] Comment on above: Performed By: #### L [id number] #### Construction Equipment Mechanic: ERICKSON DIETZ ([id number]) [facility] ([facility]) [address] [place] [address] PHENCYCLIDINE SCREEN Negative Normal [facility] Comment on above: Performed By: #### L [id number] #### Construction Equipment Mechanic: ERICKSON DIETZ ([id number]) [facility] ([facility]) [address] [place] [address] ED Provider Noteon ED Provider Note Emergency [...] for dizziness for a couple of days JONEL Brown is a 29 y.o. female who [...] NEUROLOGICAL: Alert, Oriented x 3, NIH 0, 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. HINTS exam c/w peripheral vertigo. Gait normal PSYCHIATRIC: Normal mood. SCREENINGS D Labs: Results for orders placed or performed during the hospital encounter of 04/26/25 ECG 12 lead Collection Time: 04/26/25 6:58 PM Result Value Ref Range Heart Rate 105 bpm QRSD Interval 84 ms QT Interval 321 ms QTC Interval 424 ms P Liberty 43 degrees QRS Liberty 36 degrees T Wave Liberty 39 degrees AR Interval 154 ms Drug screen panel, emergency [...] Result Roseanne (more content not included)... Normal [facility] ED Provider Note Emergency Department Encounter [facility] EMERGENCY DEPT Patient: Nadia Brown : 1995 [...] we did do quite a broad workup. [place] much better after getting medications here in [...] Solutions Diamond Quiroz MD 05/01/25 0132 Normal [facility] ETHANOLon 04-26-2025 ETHANOL IN SER/PLAS- MAZARIEGOS <10 Normal <10 [facility] Comment on above: Result Comment: NIRAV Almodovar COMMENTS: GRIEF COUNSELLOR depression is seen >100 mg/dL. NOTE: This result is for medical treatment only. Analysis performed using non-forensic procedures. Performed By: #### L [id number] #### Construction Equipment Mechanic: ERICKSON DIETZ ([id number]) [facility] ([facility]) [address] [place] [address] Ethanol (Bld) [Mass/Vol]on 0 04-26-2025 Ethanol [Mass/Vol] mg/dL NINF - 10 mg/dL [facility] Interpretation and review of laboratory results Normal [facility] GRIEF COUNSELLOR depression is se en >100 mg/dL. NOTE: This result is for medical treatment only. Analysis performed using non-forensic procedures. [facility] [employer] HCG QUANTITATIVE BLOODon HCG QUANTITATIVE <2.5 Normal Females <5 [facility] Comment on above: Result Comment: NIRAV Almodovar COMMENTS: Values in should double every 2 [...] gestational trophoblastic disease. Performed By: #### L [id number] #### Construction Equipment Mechanic: ERICKSON DIETZ ([id number]) [facility] ([facility]) [address] [place] [address] HIGH SENSITIVITY TROPONIN, S ERIAL BASELINEon 04-26-2025 TROPONIN HS SERIAL BASELINE 4 ng/L Normal <=14 [facility] Comment on above: Result Comment: In i ndividuals presenting with symptoms > 2h, a baseline troponin <= 5 ng/L suggests acute cardiac injury is unlikely and further serial testing is generally not indicated. Performed By: #### L [id number] #### Construction Equipment Mechanic: ERICKSON DIETZ ([id number]) [facility] ([facility]) [address] [place] [address] LACTIC ACID WITH REFLEXon Lactate [Moles/Vol] 1.4 mmol/L Normal 0.5-2.2 [facility] Comment on above: Performed By: #### L [id number] #### Construction Equipment Mechanic: ERICKSON DIETZ ([id number]) [facility] ([facility]) [address] [place] [address] LAMOTRIGINE LEVEL (BKR QUEST )on 04-26-2025 QUEST LAMOTRIGINE <0.5 Low 2.5-15.0 [facility] Comment on above: Result Comment: This test was developed and its analytical performance characteristics have been determined by [employer] [place], [place]. It has not been cleared or approved by the U.S. Food and Drug Administration. This assay has been validated pursuant to the CLIA regulations and is used for clinical purposes. Test Performed by [facility], [facility], [address] [place], [place] Kailash De La Cruz M.D., Ph.D., Director of Laboratories , CLIA [id number] Performed By: #### L [id number] #### [employer] ([employer]) [id number] [place], [place] [facility] Laboratory - Chemistry and C hemistry - challengeon 04-26-2025 HCG.beta subunit Qn Females <5 mIU/mL [facility] Lactate [Moles/Vol] 1.4 mmol/L 0.5 - 2. 2 mmol/L [facility] Laboratory - Chemistry and C hemistry - challengeOrdered By: Vicente Escoto on 04-26-2025 Base excess Calc (BldV) [Moles/Vol] 0.3 mmol/L -3.0 - 3.0 mmol/L [facility] CO2 (BldV) [Partial pressure] 43.7 mm[Hg] [facility] CO2 [Moles/Vol] 26.9 mmol/L 24.0 - 28.0 mmol/L [facility] HCO3 (Bld) [Moles/Vol] 25.6 mmol/L 23.0 - 27.0 mmol/L [facility] Oxygen (BldV) [Partial pressure] 29.6 mm[Hg] mm Hg [facility] pH (BldV) 7.385 [pH] 7.330 - 7.430 [facility] Laboratory - Drug toxicology on 04-26-2025 Amphetamines Screen method >1000 ng/mL Ql (U) Negative [facility] Barbiturates Screen method >200 ng/mL Ql (U) Negative [facility] Benzodiazepines Ql (U) Negative [facility] Methadone Screen Ql (U) Negative [facility] Opiates Screen Ql (U) Negative [facility] oxyCODONE Ql (U) Negative [facility] Phencyclidine Ql (U) Negative [facility] Laboratory - Hematology and Cell countsOrdered By: Vicente Escoto on 04-26-2025 Hemoglobin (Bld) [Mass/Vol] 12.4 g/dL 7.0 g/dl [facility] NT PRO BNPon 04-26-2025 NT PRO BNP <15 Normal <125 [facility] Comment on above: Performed By: #### L [id number] #### Construction Equipment Mechanic: ERICKSON DIETZ ([id number]) [facility] ([facility]) [address] Natriuretic peptide B [Mass/ Vol]on 04-26-2025 Interpretation and review of laboratory results Normal [facility] Natriuretic peptide B (Bld) [Mass/Vol] pg/mL NINF - 125 pg/mL [facility] No Panel Informationon 04-26 Interpretation and review of laboratory results Normal [facility] Troponin HS Serial Baseline 4 ng/L NINF - 14 ng/L [facility] Comment on above: In individuals prese nting [...] or monitor tumors or gestational trophoblastic disease. [facility] Interpretation and review of laboratory results Normal [facility] COCAINE METAB. SCREEN Negative [facility] FENTANYL SCREEN, UR QUAL Negative [facility] The expected value f or all of [...] is needed, request confirmation under separate order. [facility] No Panel InformationOrdered By: Vicente Escoto on 04-26-2025 Amount Of Oxygen [facility] Source Of Oxygen None (Room Air) [facility] Assessment of oxygen ation is best done with an arterial blood gas determination. Reference ranges for pO2, bicarbonate, and base excess are for mixed venous blood. Specimens drawn from a peripheral vein will often have higher values. [facility] Urinalysis complete panel (U )Ordered By: Amish Alexis on 04-26-2025 Bacteria LM.HPF (Urine sed) [#/Area] Moderate Abnormal Negative /HPF [facility] Bilirubin Ql (U) Negative Negative mg/dL [facility] Clarity (U) Turbid Abnormal Clear [facility] Color (U) Yellow Lt. Yellow [facility] Epithelial cells.squamous LM.HPF (Urine sed) [#/Area] 11-25 [facility] Glucose Ql (U) Normal Normal (<70) mg/dL [facility] Hemoglobin Ql (U) Negative Negative mg/dL [facility] Hyaline casts Auto (Urine sed) [#/Area] Negative Negative /LPF [facility] Interpretation and review of laboratory results Abnormal [facility] Ketones (U) [Mass/Vol] Negative Negative mg/dL [facility] Leukocyte esterase Test strip Ql (U) Negative Negative Michael/uL [facility] Mucus LM.HPF (Urine sed) [#/Area] Few Negative /LPF [facility] Nitrite Ql (U) Positive Abnormal Negative [facility] th pH (U) 5.5 [pH] 5.0 - 8.0 pH [facility] Protein (U) [Mass/Vol] 20 mg/dL Abnormal Negative [facility] RBC LM.HPF (Urine sed) [#/Area] 0-2 [facility] Specific gravity (U) [Rel density] 1.031 High 1.005 - 1.030 [facility] Urobilinogen (U) [Mass/Vol] Normal Normal (0-1) mg/dL [facility] WBC LM.HPF (Urine sed) [#/Area] 3-5 [facility] A specimen with <=10 WBC is not consistent with inflammation. This specimen will not reflex to a urine culture. [facility] Vital signsOrdered By: Vicente Escoto on 04-26-2025 Oxygen saturation in Venous blood 44.3 % [facility] XR Chest Single viewon 04-26 No evidence of an acute cardiopulmonary abnormality. Report Dictated on Electronically Signed By: Philip Del Cid MD Electronically Signed Date/Time: 04/26/2025 9:02 PM EDT [facility] RADIOLOGY SYSTEM Patient Name: NADIA JUAN : 1995 Exam Date/Time: 04/26/2025 20:54 Procedure: XR CHEST 1 VIEW Ordering Provider: QUIROZ YASMIN Reason For Exam: sob AP CHEST X-RAY CLINICAL INDICATION: sob shortness of breath TECHNIQUE: AP portable x-ray of the chest. COMPARISON: 11/10/2019 FINDINGS: Heart/Mediastinum: Within normal limits Lungs: No consolidation or pleural effusion. Bones: Unremarkable [facility] RAD[facility] Philip Del Cid M D - 04/26/2025 Patient Name: NADIA BROWN : 1995 Exam Date/Time: 04/26/2025 20:54 Procedure: [...] Electronically Signed Date/Time: 04/26/2025 9:02 PM EDT [facility] [employer] Radiology [facility] (narrative) [facility] Single viewOrdered By: Philip Del Cid on 04-26-2025 [facility] [employer] Work Phone: .Auto Diffon 09-25-2024 Basophil, Absolute 0.0 10 3/mcL Normal 0.0-0.3 [facility] Comment on above: Performed By: #### A NICOLE, HCGQ, MDW, ADIFF, CRP, CMP, CBC, GFR, ESR #### [facility] [address] [place], [place] [address] Basophils/100 WBC (Bld) 0.4 % Normal 0.0-2.5 [facility] Comment on above: Performed By: #### A NICOLE, HCGQ, MDW, ADIFF, CRP, CMP, CBC, GFR, ESR #### [facility] [address] [place], [place] [address] Eosinophil, Absolute 0.1 10 3/mcL Normal 0.0-0.7 [facility] Comment on above: Performed By: #### A NICOLE, HCGQ, MDW, ADIFF, CRP, CMP, CBC, GFR, ESR #### [facility] [address] [place], [place] [address] Eosinophils/100 WBC (Bld) 1.4 % Normal 0.0-6.0 [facility] Comment on above: Performed By: #### A NICOLE, HCGQ, MDW, ADIFF, CRP, CMP, CBC, GFR, ESR #### [facility] [address] [place], [place] [address] Lymphocyte, Absolute 2.5 10 3/mcL Normal 0.9-4.3 [facility] Comment on above: Performed By: #### A NICOLE, HCGQ, MDW, ADIFF, CRP, CMP, CBC, GFR, ESR #### [facility] [address] [place], [place] [address] Lymphocytes/100 WBC (Bld) 31.5 % Normal 20.0-40.0 [facility] Comment on above: Performed By: #### A NICOLE, HCGQ, MDW, ADIFF, CRP, CMP, CBC, GFR, ESR #### [facility] [address] [place], [place] [address] Monocyte, Absolute 0.5 10 3/mcL Normal 0.1-1.4 [facility] Comment on above: Performed By: #### A NICOLE, HCGQ, MDW, ADIFF, CRP, CMP, CBC, GFR, ESR #### [facility] [address] [place], [place] [address] Monocytes/100 WBC (Bld) 6.1 % Normal 2.0-13.0 [facility] Comment on above: Performed By: #### A NICOLE, HCGQ, MDW, ADIFF, CRP, CMP, CBC, GFR, ESR #### [facility] [address] [place], [place] [address] Neutrophils/100 WBC (Bld) 60.6 % Normal 50.0-75.0 [facility] Comment on above: Performed By: #### A NICOLE, HCGQ, MDW, ADIFF, CRP, CMP, CBC, GFR, ESR #### [facility] [address] [place], [place] [address] .GFRon 09-25-2024 GFR 97 ml/min/1.73sqm Normal [facility] Comment on above: Result Comment: GFR [...] ADIFF, CRP, CMP, CBC, GFR, ESR #### [facility] [address] [place], [place] [address] GFR Non- 80 ml/min/1.73sqm Normal [facility] Comment on above: Result Comment: GFR [...] ADIFF, CRP, CMP, CBC, GFR, ESR #### [facility] [address] [place] [address] .MDWon 09-25-2024 Monocyte Distribution Width 18.90 Normal 0.00-20.00 [facility] Comment on above: Result Comment: For ED adult patients suspected of sepsis, MDW<=20.0 does not rule out sepsis or risk of sepsis Performed By: #### A NICOLE, HCGQ, MDW, ADIFF, CRP, CMP, CBC, GFR, ESR #### [facility] [address] [place], [place] [address] .NEUABSon 09-25-2024 Neutrophil, Absolute 4.8 10 3/mcL Normal 2.3-8.1 [facility] Comment on above: Performed By: #### A NICOLE, HCGQ, MDW, ADIFF, CRP, CMP, CBC, GFR, ESR #### [facility] [address] [place] [address] CBCon 09-25-2024 Erythrocyte distribution width (RBC) [Ratio] 17.4 % High 11.5-15.5 [facility] Comment on above: Performed By: #### A NICOLE, HCGQ, MDW, ADIFF, CRP, CMP, CBC, GFR, ESR #### [facility] [address] [place] [address] Hematocrit (Bld) [Volume fraction] 34.9 % Normal 34.0-46.0 [facility] Comment on above: Performed By: #### A NICOLE, HCGQ, MDW, ADIFF, CRP, CMP, CBC, GFR, ESR #### [facility] [address] [place] [address] Hgb 11.3 G/dL Low 12.0-16.0 [facility] Comment on above: Performed By: #### A NICOLE, HCGQ, MDW, ADIFF, CRP, CMP, CBC, GFR, ESR #### [place] [address] MCH (RBC) [Entitic mass] 25.2 pg Low 27.0-33.0 [facility] Comment on above: Performed By: #### A NICOLE, HCGQ, MDW, ADIFF, CRP, CMP, CBC, GFR, ESR #### [facility] [address] [place] [address] MCHC 32.4 G/dL Normal 32.0-36.0 [facility] Comment on above: Performed By: #### A NICOLE, HCGQ, MDW, ADIFF, CRP, CMP, CBC, GFR, ESR #### [facility] [address] [place] [address] MCV (RBC) [Entitic vol] 77.7 fL Low 80.0-99.0 [facility] Comment on above: Performed By: #### A NICOLE, HCGQ, MDW, ADIFF, CRP, CMP, CBC, GFR, ESR #### [facility] [address] [place] [address] Platelet 370 10 3/mcL Normal 150-450 [facility] Comment on above: Performed By: #### A NICOLE, HCGQ, MDW, ADIFF, CRP, CMP, CBC, GFR, ESR #### [facility] [address] [place] [address] Platelet mean volume (Bld) [Entitic vol] 7.7 fL Normal 6.6-10.5 [facility] Comment on above: Performed By: #### A NICOLE, HCGQ, MDW, ADIFF, CRP, CMP, CBC, GFR, ESR #### [facility] [address] [place] [address] RBC 4.49 10 6/mcL Normal 4.10-5.30 [facility] Comment on above: Performed By: #### A NICOLE, HCGQ, MDW, ADIFF, CRP, CMP, CBC, GFR, ESR #### [facility] [address] [place] [address] WBC 7.9 10 3/mcL Normal 4.5-10.8 [facility] Comment on above: Performed By: #### A NICOLE, HCGQ, MDW, ADIFF, CRP, CMP, CBC, GFR, ESR #### [place] [address] CMPon 09-25-2024 Albumin Level 3.5 G/dL Normal 3.4-5.0 [facility] Comment on above: Performed By: #### A NICOLE, HCGQ, MDW, ADIFF, CRP, CMP, CBC, GFR, ESR #### [place] [address] Albumin/Globulin [Mass ratio] 0.8 {ratio} Low 1.1-1.8 [facility] Comment on above: Performed By: #### A NICOLE, HCGQ, MDW, ADIFF, CRP, CMP, CBC, GFR, ESR #### [facility] [address] [place] [address] ALP [Catalytic activity/Vol] 75 U/L Normal 45-117 [facility] Comment on above: Performed By: #### A NICOLE, HCGQ, MDW, ADIFF, CRP, CMP, CBC, GFR, ESR #### [facility] [address] [place] [address] ALT [Catalytic activity/Vol] 44 U/L Normal 12-78 [facility] Comment on above: Performed By: #### A NICOLE, HCGQ, MDW, ADIFF, CRP, CMP, CBC, GFR, ESR #### [facility] [address] [place], [place] [address] AST [Catalytic activity/Vol] 18 U/L Normal 15-37 [facility] Comment on above: Performed By: #### A NICOLE, HCGQ, MDW, ADIFF, CRP, CMP, CBC, GFR, ESR #### [facility] [address] [place], [place] [address] Bili Total 0.3 mg/dL Normal 0.2-1.0 [facility] Comment on above: Result Comment: Use of this assay is not recommended for patients undergoing treatment with eltrombopag due to the potential for falsely elevated results. Performed By: #### A NICOLE, HCGQ, MDW, ADIFF, CRP, CMP, CBC, GFR, ESR #### [facility] [address] [place] [id number] BUN/Creatinine Ratio 13.3 ratio Normal 10.0-22.0 [facility] Comment on above: Performed By: #### A NICOLE, HCGQ, MDW, ADIFF, CRP, CMP, CBC, GFR, ESR #### [facility] [address] [place], [place] [address] Calcium [Mass/Vol] 8.8 mg/dL Normal 8.5-10.1 [facility] Comment on above: Performed By: #### A NICOLE, HCGQ, MDW, ADIFF, CRP, CMP, CBC, GFR, ESR #### [facility] [address] [place], [place] [address] Chloride [Moles/Vol] 111 mmol/L High 98-107 [facility] Comment on above: Performed By: #### A NICOLE, HCGQ, MDW, ADIFF, CRP, CMP, CBC, GFR, ESR #### [facility] [address] [place] [id number] CO2 [Moles/Vol] 23 mmol/L Normal 21-32 [facility] Comment on above: Performed By: #### A NICOLE, HCGQ, MDW, ADIFF, CRP, CMP, CBC, GFR, ESR #### [place] [id number] Creatinine [Mass/Vol] 0.83 mg/dL Normal 0.55-1.02 [facility] Comment on above: Result Comment: Test ing performed on Siemens Dimension [place] analyzer using a modified kinetic Navid technique. Performed By: #### A NICOLE, HCGQ, MDW, ADIFF, CRP, CMP, CBC, GFR, ESR #### [place] [id number] Electrolyte Balance 6.0 mEq/L Normal 4.0-15.0 [facility] Comment on above: Performed By: #### A NICOLE, HCGQ, MDW, ADIFF, CRP, CMP, CBC, GFR, ESR #### [place] [address] Globulin 4.2 G/dL Normal 2.5-4.6 [facility] Comment on above: Performed By: #### A NICOLE, HCGQ, MDW, ADIFF, CRP, CMP, CBC, GFR, ESR #### [place] [id number] Glucose [Mass/Vol] 93 mg/dL Normal 70-100 [facility] Comment on above: Performed By: #### A NICOLE, HCGQ, MDW, ADIFF, CRP, CMP, CBC, GFR, ESR #### [place] [id number] Potassium [Moles/Vol] 3.8 mmol/L Normal 3.5-5.1 [facility] Comment on above: Performed By: #### A NICOLE, HCGQ, MDW, ADIFF, CRP, CMP, CBC, GFR, ESR #### [place] [id number] Sodium [Moles/Vol] 140 mmol/L Normal 136-145 [facility] Comment on above: Performed By: #### A NICOLE, HCGQ, MDW, ADIFF, CRP, CMP, CBC, GFR, ESR #### [facility] [address], [place] [address] Total Protein 7.7 G/dL Normal 6.0-8.3 [facility] Comment on above: Performed By: #### A NICOLE, HCGQ, MDW, ADIFF, CRP, CMP, CBC, GFR, ESR #### [facility] [address] [place] [address] Urea nitrogen [Mass/Vol] 11.0 mg/dL Normal 7.0-18.0 [facility] Comment on above: Performed By: #### A NICOLE, HCGQ, MDW, ADIFF, CRP, CMP, CBC, GFR, ESR #### [facility] [address] [place] [address] CRPon 09-25-2024 C-Reactive Protein 0.50 mg/dL High 0.00-0.30 [facility] Comment on above: Performed By: #### A NICOLE, HCGQ, MDW, ADIFF, CRP, CMP, CBC, GFR, ESR #### [facility] [address] [place] [address] [address] SOFT TISSUE NECK W/ CONTR Mary [...] Date: 09/25/2024 9:26:30 PM Ordering Provider: IVAN Frank [facility] ESRon 09-25-2024 Erythrocyte Sed Rate 46 mm/hr High 0-20 [facility] Comment on above: Performed By: #### A NICOLE, HCGQ, MDW, ADIFF, CRP, CMP, CBC, GFR, ESR #### [facility] [address], [place] [address] HCGQon 09-25-2024 hCG, quantitative <1 Normal [facility] Comment on above: Result Comment: Jc [...] ADIFF, CRP, CMP, CBC, GFR, ESR #### [facility] [address], [place] [address] ED.PDOCon 04-30-2024 ED.PDOC NADIA BROWN Female [id number] Attending provider: PRE ER ER [id number] Jamie Quinones 1995 28 DOS: 04/30/24 Hx/Exam [...] gait, normal strength, normal sensation, speech clear/fluent, 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 Psychiatric: oriented x3, calm, normal [...] TID #60 cap Transmission Status: Pending to [facility] Diclofenac Sodium [Diclofenac Sodium Dr] 75 mg PO BID #20 tab Oxycodone W/ APAP 5-325 mg [Percocet 5 mg/325 mg Ud] 1 tab PO Q6H PRN PRN 3 Days #10 tab PRN Reason: Transmission Status: Sent to [facility] Referrals: Call,On [Primary Care Provider] - Dictated By: REGINA BURNS Dictated Date/Time:04/30/24 1257 Electronically Signed Date/Time: 04/30/24 1303 [facility] Consult-Ophthalmologyon 02-06 Consult-Ophthalmology Service: Service: Ophthalmology History of Present Illness: HPI: NADIA BROWN is a 26 year old Female Allergies: No Known Allergies: Assessment: HPI: 26 yo F w/ PMHx of seizures, anxiety, depression bipolar, PTSD, asthma and COPD presents to the ED after falling in the shower with suspected recurrent seizure activity. Patient is originally from [place] and living in [place]. 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 job if she does not attend and then she could not pay for her apartment - discussed with patient that management of iritis typically requires close f/u wihtin the week - understands that without close f/u vision can be affected fpc - would recommend long taper of topical prednisolone, 02/08/12/09 for 1 week each then stop altogether, [...] - counselled that this could effect vision fpc - discussed RD precautions and vision changes that would require immediate ED f/u such as new onset flashes/floaters, worsening vision - patient understands risks of not following up - will still attempt ot schedule with retina this week or next available for patient #Suspected Seizures Recurrence - patient of anti-seizure medication for 1 week - manage per primary Please page ophthalmology [phone] with any questions. Discussed with Dr. Fidel Liu, PGY4 Daniel Montenegro MD Ophthalmology PGY-2 Note is not final until signed by attending physician Ophthalmology Adult Pager - [phone] Ophthalmology Pediatrics Pager - [phone] For adult follow-up appointments, call: [phone] For pediatric follow-up appointments, call: [phone] Attestation: Note Completion: I am a: Resident/Fellow Attending AttestationI saw and evaluated the patient. I personally obtained the piper and critical portions of the history and (more content not included)... Normal [facility] Provider Note - ED Care Cerda sitionon 02-21-2022 Provider Note - ED Care Transition [...] Updated: 21-Feb-2022 17:35 by Peter Westbrook) Normal [facility] CBC AND DIFFERENTIALon 02-20 % AUTOMATED IMMATURE GRAN 0.3 % Normal 0.0 - 0.9 [facility] Comment on above: Result Comment: Nanci ture Granulocyte Count (IG) includes promyelocytes, myelocytes and metamyelocytes but does not include bands. Percent differential counts (%) should be interpreted in the context of the absolute cell counts (cells/L). Performed By: #### C BCDF #### [facility] [address] [place] [address] Basophils (Bld) [#/Vol] 0.03 10*3/uL Normal 0.00 - 0.10 [facility] Comment on above: Performed By: #### C BCDF #### [facility] [address] [place] [address] Basophils/100 WBC (Bld) 0.3 % Normal 0.0 - 2.0 [facility] Comment on above: Performed By: #### C BCDF #### [facility] [address] [place] [address] Eosinophils (Bld) [#/Vol] 0.03 10*3/uL Normal 0.00 - 0.70 [facility] Comment on above: Performed By: #### C BCDF #### [facility] [address] [place] [address] Eosinophils/100 WBC (Bld) 0.3 % Normal 0.0 - 6.0 [facility] Comment on above: Performed By: #### C BCDF #### [place] [address] [place] [address] Erythrocyte distribution width (RBC) [Ratio] 13.5 % Normal 11.5 - 14.5 [facility] Comment on above: Performed By: #### C BCDF #### [place] [address] [place] [address] Hematocrit (Bld) [Volume fraction] 37.2 % Normal 36.0 - 46.0 [facility] Comment on above: Performed By: #### C BCDF #### [facility] [address] [place] [address] Hemoglobin (Bld) [Mass/Vol] 12.9 g/dL Normal 12.0 - 16.0 [facility] Comment on above: Performed By: #### C BCDF #### [facility] [address] [place] [address] Lymphocytes (Bld) [#/Vol] 1.41 10*3/uL Normal 1.20 - 4.80 [facility] Comment on above: Performed By: #### C BCDF #### [facility] [address] [place] [address] Lymphocytes/100 WBC (Bld) 13.2 % Normal 13.0 - 44.0 [facility] Comment on above: Performed By: #### C BCDF #### [facility] [address] [place] [address] MCHC (RBC) [Mass/Vol] 34.7 g/dL Normal 32.0 - 36.0 [facility] Comment on above: Performed By: #### C BCDF #### [facility] [address] [place] [address] MCV (RBC) [Entitic vol] 85 fL Normal 80 - 100 [facility] Comment on above: Performed By: #### C BCDF #### [facility] [address] [place] [address] Monocytes (Bld) [#/Vol] 0.46 10*3/uL Normal 0.10 - 1.00 [facility] Comment on above: Performed By: #### C BCDF #### [facility] [address] [place] [address] Monocytes/100 WBC (Bld) 4.3 % Normal 2.0 - 10.0 [facility] Comment on above: Performed By: #### C BCDF #### [facility] [address] [place] [address] Neutrophils (Bld) [#/Vol] 8.74 10*3/uL High 1.20 - 7.70 [facility] Comment on above: Performed By: #### C BCDF #### [facility] [address] [place] [address] Neutrophils/100 WBC (Bld) 81.6 % Normal 40.0 - 80.0 [facility] Comment on above: Performed By: #### C BCDF #### [facility] [address] [place] [address] NUCLEATED RBC 0.0 /100 WBC Normal 0.0-0.0 [facility] Comment on above: Performed By: #### C BCDF #### [facility] [address] [place] [address] Platelets (Bld) [#/Vol] 349 10*3/uL Normal 150 - 450 [facility] Comment on above: Performed By: #### C BCDF #### [facility] [address] [place] [address] RBC 4.38 x10E12/L Normal 4.00 - 5.20 [facility] Comment on above: Performed By: #### C BCDF #### [facility] [address] [place] [address] WBC (Bld) [#/Vol] 10.7 10*3/uL Normal 4.4 - 11.3 [facility] Comment on above: Performed By: #### C BCDF #### [facility] [address] [place] [address] CT IMAGE RECONSTRUCTION 3D V OLUME and MIPon 02-20-2022 CT IMAGE RECONSTRUCTION 3D VOLUME and MIP Patient Name: NADIA BROWN STUDY: CT HEAD WO CONTRAST; CT FACIAL BONES; 02/20/2022 8:31 pm INDICATION: sz. hit head, Lie Flat: Yes . COMPARISON: None. ACCESSION NUMBER(S): [id number]; [id number] ORDERING CLINICIAN: ROBERT JERNIGAN TECHNIQUE: Noncontrast axial [...] as stated. This study was interpreted at [place], [place]. Electronically signed by: MIGUEL PAULINO MD Normal [facility] Electrocardiogram 12 Leadon 02-20-2022 Electrocardiogram 12 Lead Ventricular Rate 56 Atrial Rate 56 P-R Interval 168 QRS Duration 94 Q-T Interval 398 QTC Calculation(Bazett) 384 P Liberty 7 R Liberty 50 T Liberty 45 QRS Count 9 Q Onset 219 P Onset 135 P Offset 190 T Offset 418 QTC Fredericia 389 Diagnosis Class Normal Diagnosis Please see ED Provider Note for formal interpretation Confirmed by ALBAN VARGAS PA-C ([id number]) on 02/21/2022 1:57:12 AM Normal [facility] GLUCOSE-POCTon 02-20-2022 Glucose [Mass/Vol] 115 mg/dL High 74 - 99 [facility] Comment on above: Performed By: #### G WHITNEY #### [facility] [address] [place] [address] LAMOTRIGINE- LAMICTALon 02-06 LAMOTRIGINE- LAMICTAL <1.0 Abnormal 2.5 - 15.0 [facility] Comment on above: Performed By: #### L AMOT #### [facility] [address] [place] [address] C-SPINE WO CONTRASTon 02-20-[address] C-SPINE WO CONTRAST Patient Name: NADIA BROWN STUDY: CT C-SPINE WO CONTRAST; 02/20/2022 8:31 pm INDICATION: sz. hit head, Lie Flat: Yes . COMPARISON: None. ACCESSION NUMBER(S): [id number] ORDERING CLINICIAN: ROBERT JERNIGAN TECHNIQUE: Axial CT [...] as stated. This study was interpreted at [facility], [place], [place]. Electronically signed by: MIGUEL PAULINO MD [facility] NR CT FACIAL BONES W/O CONTR Mary Beth 02-20-[address] FACIAL BONES W/O CONTRAST Patient Name: NADIA BROWN STUDY: CT HEAD WO CONTRAST; CT FACIAL BONES; 02/20/2022 8:31 pm INDICATION: sz. hit head, Lie Flat: Yes . COMPARISON: None. ACCESSION NUMBER(S): [id number]; [id number] ORDERING CLINICIAN: ROBERT JERNIGAN TECHNIQUE: Noncontrast axial [...] as stated. This study was interpreted at [place], [place]. Electronically signed by: MIGUEL PAULINO MD Normal [facility] NR CT HEAD WO CONTRASTon NR CT HEAD WO CONTRAST Patient Name: NADIA BROWN STUDY: CT HEAD WO CONTRAST; CT FACIAL BONES; 02/20/2022 8:31 pm INDICATION: sz. hit head, Lie Flat: Yes . COMPARISON: None. ACCESSION NUMBER(S): [id number]; [id number] ORDERING CLINICIAN: ROBERT JERNIGAN TECHNIQUE: Noncontrast axial [...] as stated. This study was interpreted at [facility], [place], [place]. Electronically signed by: MD Monika CAMARENA [facility] Provider Note - ED v3on 02-06 [...] she has not had a seizure since 2015. She endorses a history of grand mal [...] Value Calvin (more content not included)... Normal [facility] RENAL FUNCTION PANELon 02-20 Albumin [Mass/Vol] 4.3 g/dL Normal 3.4 - 5.0 [facility] Comment on above: Performed By: #### R ENAL ####[id number] [place] [address] Anion gap [Moles/Vol] 12 mmol/L Normal 10 - 20 [facility] Comment on above: Performed By: #### R ENAL ####[id number] [place] [address] Calcium [Mass/Vol] 9.8 mg/dL Normal 8.6 - 10.6 [facility] Comment on above: Performed By: #### R ENAL ####[id number] [place] [address] Chloride [Moles/Vol] 107 mmol/L Normal 98 - 107 [facility] Comment on above: Performed By: #### R ENAL ####[id number] [place] [address] Creatinine [Mass/Vol] 0.82 mg/dL Normal 0.50 - 1.05 [facility] Comment on above: Performed By: #### R ENAL ####[id number] [place] [address] eGFR FEMALE >90 Normal >90 [facility] Comment on above: Result Comment: CALC ULATIONS OF ESTIMATED GFR ARE PERFORMED USING THE 2020 CKD-EPI STUDY REFIT EQUATION WITHOUT THE RACE VARIABLE FOR THE IDMS-TRACEABLE CREATININE METHODS. https://jasn.asnjournals.org/content/early/ASN.459754 5852 Performed By: #### R ENAL ####[id number] [place] [address] Glucose [Mass/Vol] 103 mg/dL High 74 - 99 [facility] Comment on above: Performed By: #### R ENAL ####[id number] [place] [address] HCO3 (Bld) [Moles/Vol] 23 mmol/L Normal 21 - 32 [facility] Comment on above: Performed By: #### R ENAL ####[id number] [place] [address] Phosphate [Mass/Vol] 2.7 mg/dL Normal 2.5 - 4.9 [facility] Comment on above: Result Comment: The performance characteristics of phosphorus testing in heparinized plasma have been validated by the individual laboratory site where testing is performed. Testing on heparinized plasma is not approved by the FDA; however, such approval is not necessary. Performed By: #### R ENAL ####[id number] [place] [address] Potassium [Moles/Vol] 4.0 mmol/L Normal 3.5 - 5.3 [facility] Comment on above: Performed By: #### R ENAL ####[id number] [place] [address] Sodium [Moles/Vol] 138 mmol/L Normal 136 - 145 [facility] Comment on above: Performed By: #### R ENAL ####[id number] [place] [address] Urea nitrogen [Mass/Vol] 9 mg/dL Normal 6 - 23 [facility] Comment on above: Performed By: #### R ENAL ####[id number] [place] [address] Triage - EDon 02-20-2022 Triage - ED [...] do anything to end your life no Grimes Fall Scale Screening Has the patient fallen [...] Last Updated: 20-Feb-2022 18:34 by Julieta Treadwell (RN) Normal [facility] VENOUS FULL PANELon 02-21-20 22 Anion gap [Moles/Vol] 13 mmol/L Normal 10 - 25 [facility] Comment on above: Performed By: #### V FPA4 ####[id number] [place] [address] BASE EXCESS-BLOOD -1.3 mmol/L Normal -2.0 - 3.0 [facility] Comment on above: Performed By: #### V FPA4 ####[id number] [place] [address] BICARB, CALCULATED 22.7 mmol/L Normal 22.0 - 26.0 [facility] Comment on above: Performed By: #### V FPA4 ####[id number] [place] [address] CALCIUM,IONIZED 1.22 mmol/L Normal 1.10 - 1.33 [facility] Comment on above: Performed By: #### V FPA4 ####[id number] [place] [address] Chloride [Moles/Vol] 107 mmol/L Normal 98 - 107 [facility] Comment on above: Performed By: #### V FPA4 ####[id number] [place] [address] Glucose [Mass/Vol] 108 mg/dL High 74 - 99 [facility] Comment on above: Performed By: #### V FPA4 ####[id number] [place] [address] Hematocrit (Bld) [Volume fraction] 39.0 % Normal 36.0 - 46.0 [facility] Comment on above: Performed By: #### V FPA4 ####[id number] [place] [address] Hemoglobin (Bld) [Mass/Vol] 13.1 g/dL Normal 12.0 - 16.0 [facility] Comment on above: Performed By: #### V FPA4 ####[id number] [place] [address] Lactate [Moles/Vol] 1.1 mmol/L Normal 0.4 - 2.0 [facility] Comment on above: Performed By: #### V FPA4 ####[id number] [place] [address] OXY HGB 81.8 % High 45.0 - 75.0 [facility] Comment on above: Performed By: #### V FPA4 ####[id number] [place] [address] Oxygen (Bld) [Partial pressure] 49 mm[Hg] High 35 - 45 [facility] Comment on above: Performed By: #### V FPA4 ####[id number] [place] [address] PATIENT TEMPERATURE 37.0 degrees C Normal [facility] Comment on above: Result Comment: NOTE : PATIENT RESULTS ARE NOT CORRECTED FOR TEMPERATURE. Performed By: #### V FPA4 ####[id number] [place] [address] PCO2 35 mmHg Low 41 - 51 [facility] Comment on above: Performed By: #### V FPA4 ####[id number] [place] [address] pH (Bld) 7.42 [pH] Normal 7.33 - 7.43 [facility] Comment on above: Performed By: #### V FPA4 ####[id number] [place] [address] Potassium [Moles/Vol] 3.9 mmol/L Normal 3.5 - 5.3 [facility] Comment on above: Performed By: #### V FPA4 ####[id number] [place] [address] SO2 83 % High 45 - 75 [facility] Comment on above: Performed By: #### V FPA4 ####[id number] [place] [address] Sodium [Moles/Vol] 139 mmol/L Normal 136 - 145 [facility] Comment on above: Performed By: #### V FPA4 ####[id number] [place] [address] .Auto Diffon 02-10-2021 Ammonia (P) [Mass/Vol] 0.60 10 3/mcL Normal 0.15-1.00 [facility] ([place]) Comment on above: Performed By: #### A DIFF, ANEU, CBC #### [address] [address] #### GFR, LIPID, A1C, BMP #### [address] [address] Basophils (Bld) [#/Vol] 0.00 10 3/mcL Normal 0.00-0.19 [facility] ([place] Comment on above: Performed By: #### A DIFF, ANEU, CBC #### [address] [address] #### GFR, LIPID, A1C, BMP #### [address] [address] Basophils/100 WBC (Bld) 0.4 % Normal 0.0-2.5 [facility] ([place] Comment on above: Performed By: #### A DIFF, ANEU, CBC #### [address] [address] #### GFR, LIPID, A1C, BMP #### [address] [address] Eosinophils (Bld) [#/Vol] 0.10 10 3/mcL Normal 0.00-0.40 [facility] ([place] Comment on above: Performed By: #### A DIFF, ANEU, CBC #### [address] [address] #### GFR, LIPID, A1C, BMP #### [address] [address] Eosinophils/100 WBC (Bld) 1.0 % Normal 0.0-7.0 [facility] ([place]) Comment on above: Performed By: #### A DIFF, ANEU, CBC #### [address] [address] #### GFR, LIPID, A1C, BMP #### [address] [address] Lymphocytes (Bld) [#/Vol] 2.20 10 3/mcL Normal 0.77-3.85 [facility] ([place]) Comment on above: Performed By: #### A DIFF, ANEU, CBC #### [place] [address] #### GFR, LIPID, A1C, BMP #### [address] [address] Lymphocytes/100 WBC (Bld) 31.2 % Normal 10.0-50.0 [facility] ([place]) Comment on above: Performed By: #### A DIFF, ANEU, CBC #### [address] [address] #### GFR, LIPID, A1C, BMP #### [address] [address] Monocytes/100 WBC (Bld) 8.2 % Normal 1.7-13.0 [facility] ([place]) Comment on above: Performed By: #### A DIFF, ANEU, CBC #### [place] [address] #### GFR, LIPID, A1C, BMP #### [address] [address] Neutrophils/100 WBC (Bld) 59.2 % Normal 37.0-80.0 [facility] ([place]) Comment on above: Performed By: #### A DIFF, ANEU, CBC #### [address] [address] #### GFR, LIPID, A1C, BMP #### [address] [address] .GFRon 02-10-2021 GFR Non- 81 ml/min/1.73sqm Normal [facility] ([place] Comment on above: Result Comment: GFR Population [...] By: #### A DIFF, ANEU, CBC #### [address] [address] #### GFR, LIPID, A1C, BMP #### [place] [address] GFR 99 ml/min/1.73sqm Normal [facility] ([place] Comment on above: Result Comment: GFR Population [...] By: #### A DIFF, ANEU, CBC #### [address] [address] #### GFR, LIPID, A1C, BMP #### [address] [address] .NEUABSon 02-10-2021 Neutrophils (Bld) [#/Vol] 4.10 10 3/mcL Normal 2.85-6.16 [facility] ([place] Comment on above: Performed By: #### A DIFF, ANEU, CBC #### [address] [address] #### GFR, LIPID, A1C, BMP #### [address] [address] A1Con 02-10-2021 HbA1c (Bld) [Mass fraction] 5.5 % Normal 4.3-6.4 [facility] ([place] Comment on above: Performed By: #### A DIFF, ANEU, CBC #### [place] [address] #### GFR, LIPID, A1C, BMP #### [address] [address] BMPon 02-10-2021 Calcium [Mass/Vol] 9.7 mg/dL Normal 8.4-10.2 [facility] ([place]) Comment on above: Performed By: #### A DIFF, ANEU, CBC #### [place] [address] #### GFR, LIPID, A1C, BMP #### [address] [address] Chloride [Moles/Vol] 105 mmol/L Normal 98-107 [facility] ([place]) Comment on above: Performed By: #### A DIFF, ANEU, CBC #### [place] [address] #### GFR, LIPID, A1C, BMP #### [address] [address] CO2 [Moles/Vol] 29 mmol/L Normal 22-29 [facility] ([place] Comment on above: Performed By: #### A DIFF, ANEU, CBC #### [address] [address] #### GFR, LIPID, A1C, BMP #### [place] [id number] Creatinine [Mass/Vol] 0.84 mg/dL Normal 0.55-1.02 [facility] ([place]) Comment on above: Performed By: #### A DIFF, ANEU, CBC #### [address] [address] #### GFR, LIPID, A1C, BMP #### [address] [address] Electrolyte Balance 8.0 mEq/L Normal [facility] ([place]) Comment on above: Performed By: #### A DIFF, ANEU, CBC #### [address] [address] #### GFR, LIPID, A1C, BMP #### [address] [address] Glucose [Mass/Vol] 78 mg/dL Normal 70-105 [facility] ([place] Comment on above: Performed By: #### A DIFF, ANEU, CBC #### [place] [address] #### GFR, LIPID, A1C, BMP #### [address] [address] Potassium [Moles/Vol] 4.1 mmol/L Normal 3.5-5.1 [facility] ([place]) Comment on above: Performed By: #### A DIFF, ANEU, CBC #### [address] [address] #### GFR, LIPID, A1C, BMP #### [address] [address] Sodium [Moles/Vol] 142 mmol/L Normal 136-145 [facility] ([place]) Comment on above: Performed By: #### A DIFF, ANEU, CBC #### [address] [address] #### GFR, LIPID, A1C, BMP #### [address] [address] Urea nitrogen [Mass/Vol] 14 mg/dL Normal 7-18 [facility] ([place] Comment on above: Performed By: #### A DIFF, ANEU, CBC #### [address] [address] #### GFR, LIPID, A1C, BMP #### [address] [address] Urea nitrogen/Creatinine [Mass ratio] 17 ratio Normal 7-27 [facility] ([place] Comment on above: Performed By: #### A DIFF, ANEU, CBC #### [place] [address] #### GFR, LIPID, A1C, BMP #### [place] [address] CBCon 02-10-2021 Erythrocyte distribution width (RBC) [Ratio] 14.7 % High 11.5-14.5 [facility] ([place] Comment on above: Performed By: #### A DIFF, ANEU, CBC #### [place] [address] #### GFR, LIPID, A1C, BMP #### [place] [address] Hematocrit (Bld) [Volume fraction] 35.6 % Low 37.0-47.0 [facility] ([place] Comment on above: Performed By: #### A DIFF, ANEU, CBC #### [place] [address] #### GFR, LIPID, A1C, BMP #### [place] [address] Hemoglobin (Bld) [Mass/Vol] 12.1 G/dL Normal 12.0-16.0 [facility] ([place] Comment on above: Performed By: #### A DIFF, ANEU, CBC #### [place] [address] #### GFR, LIPID, A1C, BMP #### [place] [address] MCH (RBC) [Entitic mass] 28.0 pg Normal 27.0-31.2 [facility] ([place] Comment on above: Performed By: #### A DIFF, ANEU, CBC #### [place] [address] #### GFR, LIPID, A1C, BMP #### [address] [address] MCHC (RBC) [Mass/Vol] 33.9 G/dL Normal 33.0-37.0 [facility] ([place]) Comment on above: Performed By: #### A DIFF, ANEU, CBC #### [place] [address] #### GFR, LIPID, A1C, BMP #### [address] [address] MCV (RBC) [Entitic vol] 82.6 fL Normal 80.0-94.0 [facility] ([place] Comment on above: Performed By: #### A DIFF, ANEU, CBC #### [place] [address] #### GFR, LIPID, A1C, BMP #### [place] [address] Platelet mean volume (Bld) [Entitic vol] 7.5 fL Normal 7.4-10.4 [facility] ([place]) Comment on above: Performed By: #### A DIFF, ANEU, CBC #### [place] [address] #### GFR, LIPID, A1C, BMP #### [place] [address] Platelets (Bld) [#/Vol] 349 10 3/mcL Normal 130-400 [facility] ([place] Comment on above: Performed By: #### A DIFF, ANEU, CBC #### [place] [address] #### GFR, LIPID, A1C, BMP #### [place] [id number] RBC (Bld) [#/Vol] 4.31 10 6/mcL Normal 4.20-5.40 [facility] ([place]) Comment on above: Performed By: #### A DIFF, ANEU, CBC #### [place] [address] #### GFR, LIPID, A1C, BMP #### [address] [address] WBC (Bld) [#/Vol] 6.90 10 3/mcL Normal 4.60-10.80 [facility] ([place]) Comment on above: Performed By: #### A DIFF, ANEU, CBC #### [address] [address] #### GFR, LIPID, A1C, BMP #### [address] [address] LIPIDon 02-10-2021 Cholesterol [Mass/Vol] 155 mg/dL Normal 0-200 [facility] ([place] Comment on above: Result Comment: Chol esterol Reference Interval: Less than 200 Desirable 200-239 Borderline high risk 240 and above High risk Performed By: #### A DIFF, ANEU, CBC #### [address] [address] #### GFR, LIPID, A1C, BMP #### [address] [address] Cholesterol in HDL [Mass/Vol] 29 mg/dL Low 40-60 [facility] ([place] Comment on above: Performed By: #### A DIFF, ANEU, CBC #### [address] [address] #### GFR, LIPID, A1C, BMP #### [address] [address] Cholesterol in LDL [Mass/Vol] 73 mg/dL Normal 0-130 [facility] ([place] Comment on above: Performed By: #### A DIFF, ANEU, CBC #### [address] [address] #### GFR, LIPID, A1C, BMP #### [address] [address] Triglyceride [Mass/Vol] 266 mg/dL High 0-150 [facility] ([place] Comment on above: Result Comment: Trig lyceride Reference Interval: Less than 150 Normal 150-199 Borderline high risk 200-499 High risk 500 or higher Very high risk Performed By: #### A DIFF, ANEU, CBC #### [place] [address] [place], [place] [address] #### GFR, LIPID, A1C, BMP #### [place] [address] XR FOREARM 2 VIEWS RIGHTon 0 02-10-2021 [...] Date: 02/10/2021 2:39:21 PM Ordering Provider:Domingo Frank [facility]) DIMERon 01-20-2021 Fibrin D-dimer FEU IA (Bld) [Mass/Vol] ug/mL Normal 0-230 [facility] ([place] Comment on above: Result Comment: The result [...] (PE). Performed By: #### D MACKENZIE #### [place] [address] [place], [place] [address] CT HEAD OR BRAIN W/O CONTRAS Ton [...] Sign Date: 04/06/2020 10:54:22 AM [facility]ing [facility] Chest PA/LATon 11-10-2019 CR Chest PA/LAT Patient Name: NADIA JUAN Diagnostic Radiology Exam Date/Time 11/10/2019 20:56:00 EST Exam CR Chest PA/LAT Ordering Physician KAYCEE MONAHAN, CYNDI Ryder Accession Number [id number] CPT4 Codes 74149 () Reason For Exam cough, SOB, wheezes [...] Transcribed Date and Time: 11/10/2019 8:58 Normal [facility] XR CHEST STANDARD (2 VW)Orde red By: 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 on 11-10-2019 Patient Name: NADIA JUAN ---Diagnostic Radiology--- Exam Date/Time 11/10/2019 20:56:00 EST Exam CR Chest PA/LAT Ordering Physician KAYCEE MONAHAN, CYNDI Ryder Accession Number [id number] CPT4 Codes 04079 () Reason For Exam cough, SOB, wheezes [...] and Time: 11/10/2019 8:58 [facility] Work Phone: [place], [facility] Incoming Radiology Results From [facility] - 11/10/2019 9:00 PM EST Patient Name: NADIA BROWN ---Diagnostic Radiology--- Exam Date/Time 11/10/2019 20:56:00 EST Exam CR Chest PA/LAT Ordering Physician KAYCEE MONAHAN LISA K. Accession Number [id number] CPT4 Codes 64631 () Reason For Exam cough, SOB, wheezes [...] NOTEon 03-22-2018 Protein mass conc HNO ID: [id number] thor: Guillermo Ramírez: (none)Author Type: PhysicianType: ED Provider NotesFiled: 09/08/2018 5:26 PMNote Text:[place] [address]VUSBNF INFORMATION MANAGEMENTEMERWHITFIELD MEDICAL SURGICAL HOSPITALCY DEPARTMENT REPORTPatient: NADIA BROWN JOEL A M.D.[id number]/ FStatus: [facility] EDDate of Service: 03/14/18CHIEF COMPLAINTNausea, vomiting, diarrhea.HISTORY OF PRESENT ILLNESSThis is a 22-year-old female brought in today with the above complaint.Complaining of nausea, vomiting, diarrhea for the past 3 days. I saw herwith Jose Love today. She was given IV fluids. She [...] if worse or problems of any kind.IMPRESSION 04/01/18 1923 GUILLERMO BECKFORD M.D.cc: GUILLERMO EARL M.D. << Signature on File>> Reported By: GUILLERMO EARL M.D. Signed By: GUILLERMO EARL M.D.Tests performed at:[address] [phone] Normal [facility] Protein mass conc HNO ID: [id number] thor: Guillermo Ramírez: (none)Author Type: PhysicianType: ED Provider NotesFiled: 09/08/2018 5:25 PMNote Text:[place], [place] [address]YLIICX INFORMATION MANAGEMENTEMERWHITFIELD MEDICAL SURGICAL HOSPITALCY DEPARTMENT REPORTPatient: NADIA BROWN JOEL A M.D. as dictated by JOSE ALEMAN, KAYCEE-[id number] 22 FStatus: [facility] EDDate of Service: 03/14/18CHIEF COMPLAINTVomiting.HISTORY OF PRESENT [...] 89, BUN and creatinine 11 and 0.95. Xtcflw473, potassium 4.2, chloride 109, bicarb is 24. [...] here for any worsening condition.Alexandro shea. 04/01/18 1922 GUILLERMO EARL M.D.cc: GUILLERMO EARL M.D. << Signature on File>> Reported By: GUILLERMO EARL M.D. Signed By: GUILLERMO EARL M.D.Tests performed at:[address] [phone] Normal [facility] ED REPORTon 03-22-2018 ED REPORT [place], [place] [address]TPINWH INFORMATION MANAGEMENTEMERGENCY DEPARTMENT REPORTPatient: NADIA BROWN JOEL A M.D. as dictated by JOSE ALEMAN, KAYCEE-[id number]/ 22 FStatus: DEP ER EDDate of Service: [...] days. Return here for any worsening condition.IMPRESSIONGastr felipetis. 04/01/181921 GUILLERMO EARL M.D.cc: GUILLERMO EARL M.D. << Signature on File>> Reported By: GUILLERMO EARL M.D. Signed By: GUILLERMO EARL M.D.Tests performed at:[facility] [place], [place] [phone] Normal [facility] EMERGENCY DEPARTMENT REPORTo n 03-22-2018 EMERGENCY DEPARTMENT REPORT [place] [address]FWCEOK INFORMATION MANAGEMENTEMERGENCY DEPARTMENT REPORTPatient: NADIA BROWN JOEL A M.D.[id number]/ FStatus: DEP ER EDDate of Service: 03/14/18CHIEF [...] returnif worse or problems of any kind.IMPRESSION 04/01/181922 GUILLERMO BECKFORD M.D.cc: GUILLERMO EARL M.D. << Signature on File>> Reported By: GUILLERMO EARL M.D. Signed By: GUILLERMO EARL M.D.Tests performed at:[address] [phone] Normal [facility] BHCG (SERUM)on 03-14-2018 HCG.beta subunit Qn Negative Normal NEGATIVE [facility] Comment on above: Result Comment: Seru m Test is more Sensitive than a UrinePregnancy Test. Please Note Threshold Values: SERUM - 10mlU/mL URINE - 20mlU/mL Performed By: #### L 200.4092 ####ML - MJQUWSQMZT[address] [place] [address] BMPon 03-14-2018 Anion gap 13.2 mmol/L Low 15-22 [facility] Comment on above: Performed By: #### L 100.0010, L100.0030, L100.0350 ####ML - BVQSODSYTO[address] [place] [address] Calcium 9.3 mg/dL Normal 8.6-10.0 [facility] Comment on above: Performed By: #### L 100.0010, L100.0030, L100.0350 ####ML - MHNZKFWHKT[address] [place] [address] Chloride 109 mmol/L High 98-107 [facility] Comment on above: Performed By: #### L 100.0010, L100.0030, L100.0350 ####ML - NFPLCCXZEE503 [place] [address] CO2 24 mmol/L Normal 22-29 [facility] Comment on above: Performed By: #### L 100.0010, L100.0030, L100.0350 ####ML - VTCSYNILMN263 [place] [address] Creatinine 0.95 mg/dL High 0.50-0.90 [facility] Comment on above: Performed By: #### L 100.0010, L100.0030, L100.0350 ####ML - MEEKTWVSFQ[address] [place] [address] eGFR (non-black) > 60 ml/min/1.73m2 Normal [facility] Comment on above: Result Comment: eGFR >= [...] #### L 100.0010, L100.0030, L100.0350 #### - [facility] [place] [address] Glucose mass conc 89 mg/dL Normal 74-106 [facility] Comment on above: Performed By: #### L 100.0010, L100.0030, L100.0350 ####[address] [address] Potassium molar conc 4.2 mmol/L Normal 3.5-5.0 [facility] Comment on above: Performed By: #### L 100.0010, L100.0030, L100.0350 ####ML - [facility] [place] [address] Sodium 142 mmol/L Normal 135-145 [facility] Comment on above: Performed By: #### L 100.0010, L100.0030, L100.0350 ####[facility] UYUJVFZFMR[address] [place] [address] Urea nitrogen 11 mg/dL Normal 6-20 [facility] Comment on above: Performed By: #### L 100.0010, L100.0030, L100.0350 ####[facility] [place] [address] CBCon 03-14-2018 Basophils Auto #/vol (Bld) 0.00 x10(3) Normal 0.00-0.10 [facility] Comment on above: Performed By: #### L 200.0010 ####ML [facility] FDNTRFGKEO[address] [place] [address] Basophils/100 WBC Auto (Bld) 0.5 % Normal 0.0-1.0 [facility] Comment on above: Performed By: #### L 200.0010 ####ML [facility] IAISIACRUD[address] [place] [address] Eosinophils 0.10 x10(3) Normal 0.00-0.54 [facility] Comment on above: Performed By: #### L 200.0010 ####ML [facility] ON[address]JEZB[address] [place] [address] Eosinophils/100 leukocytes 1.2 % Normal 0.5-4.9 [facility] Comment on above: Performed By: #### L 200.0010 ####ML [address] [address] Erythrocyte distribution width Auto Ratio (RBC) 14.2 % Normal 12.5-15.7 [facility] Comment on above: Performed By: #### L 200.0010 ####ML [facility] EPWHZPZNPC[address] [place] [address] Erythrocytes (RBC) 4.07 x10(6) Normal 3.30-5.00 [facility] Comment on above: Performed By: #### L 200.0010 ####[address] [address] Hematocrit (HCT) 35.1 % Low 36.0-48.0 [facility] Comment on above: Performed By: #### L 200.0010 ####ML [facility] BYGTFXPLMR[address] [place] [address] Hemoglobin mass conc (Bld) 11.6 g/dL Low 12.0-16.0 [facility] Comment on above: Performed By: #### L 200.0010 ####ML [facility] NYAVVTQUYK[address] [place] [address] Lymphocytes 1.80 x10(3) Normal 1.00-3.50 [facility] Comment on above: Performed By: #### L 200.0010 ####ML [facility] VSLIMBAPTN[address] [place] [address] Lymphocytes/100 leukocytes 26.8 % Normal 16.0-48.0 [facility] Comment on above: Performed By: #### L 200.0010 ####ML - NKBQKGCSVL[address] [place] [address] MCH 28.6 pg Normal 28.5-32.9 [facility] Comment on above: Performed By: #### L 200.0010 ####ML - IPKTCSXCXB[address] [place] [address] MCHC mass conc (RBC) 33.1 g/dL Normal 33.0-36.0 [facility] Comment on above: Performed By: #### L 200.0010 ####ML - ZPOXWRKQPM[address] [place] [address] MCV 86.3 fL Normal 80.0-99.0 [facility] Comment on above: Performed By: #### L 200.0010 ####ML - LHCBQPWESS[address] [place] [address] Monocytes 0.60 x10(3) Normal 0.30-0.80 [facility] Comment on above: Performed By: #### L 200.0010 ####ML - EWJUWEICSP[address] [place] [address] Monocytes/100 leukocytes 8.7 % Normal 4.3-11.2 [facility] Comment on above: Performed By: #### L 200.0010 ####ML - WUIKHSLPBE[address] [place] [address] Neutrophils 4.30 x10(3) Normal 1.40-6.50 [facility] Comment on above: Performed By: #### L 200.0010 ####ML - LHXXJMAGNM[address] [place] [address] Neutrophils/100 WBC Auto (Bld) 62.8 % Normal 45.0-73.0 [facility] Comment on above: Performed By: #### L 200.0010 ####ML - QGVTBBLHSS[address] [place] [address] Platelet mean volume (PMV) 7.7 fL Normal 7.5-9.5 [facility] Comment on above: Performed By: #### L 200.0010 ####ML - IVXZIZXZBT660 [place] [address] Platelets 285 X10(3) Normal 150-450 [facility] Comment on above: Performed By: #### L 200.0010 ####ML - EQUVCGMTAM014 [place] [address] WBC (Leukocytes) 6.9 x10(3) Normal 4.5-10.0 [facility] Comment on above: Performed By: #### L 200.0010 ####ML - YLSGRIMFOM[address] [place] [address] HEPATIC PANELon 03-14-2018 A:G RATIO 1.46 Normal 1.1-2.5 [facility] Comment on above: Performed By: #### L 100.0010, L100.0030, L100.0350 ####ML - MBVQTGBGDG[address] [place] [address] Alanine aminotransferase (ALT) 22 U/L Normal 5-33 [facility] Comment on above: Performed By: #### L 100.0010, L100.0030, L100.0350 ####ML - YNUIYXCVZQ[address] [place] [address] Albumin 4.1 g/dL Normal 3.5-5.2 [facility] Comment on above: Performed By: #### L 100.0010, L100.0030, L100.0350 ####ML - UIOFSFOXMT[address] [place] [address] ALK. PHOS 62 U/L Normal 35-105 [facility] Comment on above: Performed By: #### L 100.0010, L100.0030, L100.0350 ####ML - OCYZSLDXCL330 [place] [address] Aspartate aminotransferase (AST) 18 U/L Normal 5-32 [facility] Comment on above: Performed By: #### L 100.0010, L100.0030, L100.0350 ####ML - IHHRBAGHOS[address] [place] [address] Bilirubin Ql (U) 0.2 mg/dL Normal 0.2-1.2 [facility] Comment on above: Performed By: #### L 100.0010, L100.0030, L100.0350 ####ML - XLRKRKKLSZ932 [place] [address] DIRECT BILIRUBI <0.2 Normal 0.0-0.3 [facility] Comment on above: Performed By: #### L 100.0010, L100.0030, L100.0350 ####ML - JLOMDISNBM823 [place] [address] Globulin 2.8 g/dL Normal 1.5-4.5 [facility] Comment on above: Performed By: #### L 100.0010, L100.0030, L100.0350 ####ML - YJCYDTJPAF132 [place] [address] Protein 6.9 g/dL Normal 6.4-8.3 [facility] Comment on above: Performed By: #### L 100.0010, L100.0030, L100.0350 ####ML - UQEPGKCLJB461 [place] [address] LIPASEon 03-14-2018 Lipase 28 U/L Normal 13-60 [facility] Comment on above: Performed By: #### L 100.0010, L100.0030, L100.0350 ####ML - JXEXMTAYOS057 [place] [address] URINALYSISon 03-14-2018 Bilirubin Ql (U) Negative Normal NEGATIVE [facility] Comment on above: Order Comment: Sourc e: Clean Catch .. Y Performed By: #### L 200.3000 ####ML - TRYDUSBSRH[address] [place] [address] URINE APPEARANC SL CLOUDY Normal CLEAR [facility] Comment on above: Order Comment: Sourc e: Clean Catch .. Y Performed By: #### L 200.3000 ####ML - PVWRPLTXNT831 [place] [address] URINE KETONE Negative Normal NEGATIVE [facility] Comment on above: Order Comment: Sourc e: Clean Catch .. Y Performed By: #### L 200.3000 ####ML - UH POCBEIFFFE[address] [place] [address] URINE SPECIFIC 1.025 Normal 1.001-1.035 [facility] Comment on above: Order Comment: Sourc e: Clean Catch .. Y Performed By: #### L 200.3000 ####ML - UH HXEJUKNYAH[address] [place] [address] URINE UROBILINO 0.2 EU/DL Normal 0.2-1.0 [facility] Comment on above: Order Comment: Sourc e: Clean Catch .. Y Performed By: #### L 200.3000 ####ML - UH QJMPDADVDR[address] [place] [address] Urine, color YELLOW Normal YELLOW [facility] Comment on above: Order Comment: Sourc e: Clean Catch .. Y Performed By: #### L 200.3000 ####ML - UH QUPLBRSCBC[address] [place] [address] Urine, glucose presence Negative Normal NEGATIVE [facility] Comment on above: Order Comment: Sourc e: Clean Catch .. Y Performed By: #### L 200.3000 ####ML - UH TNYYOPTEKO[address] [place] [address] Urine, hemoglobin presence Negative Normal NEGATIVE [facility] Comment on above: Order Comment: Sourc e: Clean Catch .. Y Performed By: #### L 200.3000 ####ML - UH SYMILUKGVX[address] [place] [address] Urine, leukocyte esterase presence Negative Normal NEGATIVE [facility] Comment on above: Order Comment: Sourc e: Clean Catch .. Y Performed By: #### L 200.3000 ####ML - UH OWCINBFGOP[address] [place] [address] Urine, nitrite presence Negative Normal NEGATIVE [facility] Comment on above: Order Comment: Sourc e: Clean Catch .. Y Performed By: #### L 200.3000 ####ML - UH KDKNGFQAAK[address] [place] [address] Urine, pH 6.0 [pH] Normal 5.0-8.0 [facility] Comment on above: Order Comment: Sourc e: Clean Catch .. Y Performed By: #### L 200.3000 ####ML - UH LYKGFZVTXR033 [place] [address] Urine, protein presence Negative Normal NEGATIVE [facility] Comment on above: Order Comment: Sourc e: Clean Catch .. Y Performed By: #### L 200.3000 ####ML - UH KNJNUJPKDT[address] [place] [address] ED PROV NOTEon 02-20-2018 Protein mass conc HNO ID: [id number] thor: Fidel Becerril CurrentService: (none)Author Type: PhysicianType: ED Provider NotesFiled: 09/08/2018 4:33 PMNote Text:[place], [place] [address]UVNARY INFORMATION MANAGEMENTEMERGENCY DEPARTMENT REPORTPatient: NADIA BROWN,FIDEL Hollins D.O. as dictated by NELSON VALADEZ, KAYCEE-[id number]/ 22 FStatus: DEP ER EDDate of Service: 02/15/18CHIEF COMPLAINT/HISTORY OF PRESENT ILLNESSThis is a 22-year-old female who presents to the emergency room withintermittent headache x3 days. She states it feels like one of hernormal migraines. She has been taking her Imitrex without relief. Shesees Dr. Grace dalal at [facility] in [place].allergiesAllergies to penicillin, latex.SOCIAL HISTORYThe patient is single. [...] in stable condition.IMPRESSIONMigra ine cephalgia. 02/20/18 2109 ALEXANDER ORTIZ D.O.cc: FIDEL ORTIZ D.O.; No Physician << Signature on File>> Reported By: FIDEL ORTIZ D.O. Signed By: FIDEL ORTIZ D.O.Tests performed at:[address] [phone] Normal [facility] ED REPORTon 02-20-2018 ED REPORT [place], [place] [address]QFYGVK INFORMATION MANAGEMENTEMERGENCY DEPARTMENT REPORTPatient: NADIA BROWN JOHN S D.O. as dictated by NELSON VALADEZ, KAYCEE-[id number]/ 22 FStatus: DEP ER EDDate of Service: 02/15/18CHIEF COMPLAINT/HISTORY OF PRESENT ILLNESSThis is a 22-year-old female who presents to the emergency room with intermittent headachex3 days. She states it feels like one of her normal migraines. She has been taking herImitrex without relief. She sees Dr. Edwards up at [facility] in [place].allergiesAllergies to penicillin, latex.SOCIAL HISTORYThe patient is single. [...] Extraocular movements are intact. Cranial nerves 2 yxrkzel12 are intact. Nose is patent. Throat is [...] time. She will bedischarged home in stable condition.IMPRESSIONMigra ine cephalgia. 02/20/18 2109 CURRENT,ALEXANDER Hollins D.O.cc: FIDEL ORTIZ D.O.; No Physician << Signature on File>> Reported By: FIDEL ORTIZ D.O. Signed By: FIDEL ORTIZ D.O.Tests performed at:[address] [phone] Normal [facility] BREAST BILATERAL COMPLETE BCCon 05-12-2017 Bilirubin (total) ORIGINALFROM:[address], [place] [address]Wkbtw: [phone] PROCEDURE FOR:NADIA LIZLFIELD[address] [place], [place] [address]Sjzd: [phone]#: [id number]#: [id number]#: [id number]: 1995Age: 21 TO:STEFANIE HERNANDEZMERCY [facility] TOPOGRAPHY TECHNICIAN [id number] [place], [place] [id number] #[id number] ULTRASOUND OF BOTH BREASTS: 05/12/2017CLINICAL: BILATERAL BASE [...] is recommended. EDWARD ROSARIO MD ab/:05/12/2017 09:49:36 Clinical Material Handler: EUNICE SEGOVIA RT,SUNGMO, [facility]letter sent: Normal BI-RADS 1&2 Ultrasound BI-RADS: 2 Benign Normal [facility] Vital Signs Date Time Vital Sign Value Performing Clinician Facility 05-14-2025 03:50-0400 Diastolic blood pressure 78 mm[Hg] [employer] DO Work Phone: [facility] [employer] 05-14-2025 03:50-0400 Heart rate 101 /min [employer] DO Work Phone: [facility] [employer] 05-14-2025 03:50-0400 Respiratory rate 18 /min [employer] DO Work Phone: [facility] [employer] 05-14-2025 03:50-0400 SaO2% (BldA) [Mass fraction] 100 % [employer] DO Work Phone: [facility] [employer] 05-14-2025 03:50-0400 Systolic blood pressure 126 mm[Hg] Emanuel Godinez DO Work Phone: [facility] [employer] 05-14-2025 01:39-0400 Body temperature 98.29 [degF] Emanuel Godinez DO Work Phone: [facility] [employer] 05-14-2025 01:03-0400 Body height 165.1 cm Emanuel Godinez DO Work Phone: [facility] [employer] 05-14-2025 01:03-0400 Body mass index (BMI) [Ratio] 47.43 kg/m2 Emanuel Godinez DO Work Phone: [facility] [employer] 05-14-2025 01:03-0400 Body weight 129.28 kg Emanuel Godinez DO Work Phone: [facility] [employer] 04-26-2025 22:51-0400 Body temperature 98.6 [degF] Diamond Quiroz MD Work Phone: [facility] [employer] 04-26-2025 22:51-0400 Diastolic blood pressure 88 mm[Hg] Diamond Quiroz MD Work Phone: [employer] 04-26-2025 22:51-0400 Heart rate 89 /min Diamond Quiroz MD Work Phone: [employer] 04-26-2025 22:51-0400 Respiratory rate 16 /min Diamond Quiroz MD Work Phone: [employer] 04-26-2025 22:51-0400 SaO2% (BldA) [Mass fraction] 99 % Diamond Quiroz MD Work Phone: [employer] 04-26-2025 22:51-0400 Systolic blood pressure 130 mm[Hg] Diamond Quiroz MD Work Phone: [facility] [employer] 04-26-2025 18:50-0400 Body height 165.1 cm Diamond Quiroz MD Work Phone: [facility] 04-26-2025 18:50-0400 Body mass index (BMI) [Ratio] 47.43 kg/m2 Diamond Quiroz MD Work Phone: [facility] 04-26-2025 18:50-0400 Body weight 129.28 kg Diamond Quiroz MD Work Phone: [facility] 09-29-2024 23:32-0500 Diastolic blood pressure 80 mm[Hg] DOMINGO HARLEY Work Phone: [facility] 09-29-2024 23:32-0500 Heart rate 79 /min [employer]INGO PL[employer] Work Phone: [facility] 09-29-2024 23:32-0500 Respiratory rate 18 /min [employer]O PLASENCIABEBETO Work Phone: [facility] 09-29-2024 23:32-0500 SaO2% (BldA) [Mass fraction] 98 % DOMINGO PLASENCIABEBETO Work Phone: [facility] 09-29-2024 23:32-0500 Systolic blood pressure 150 mm[Hg] DOMINGO PLASENCIABEBETO Work Phone: [facility] 09-29-2024 22:59-0500 Body height 165.1 cm DOMINGO PLASENCIABEBETO Work Phone: [facility] 09-29-2024 22:59-0500 Body weight 124.74 kg DOMINGOMAUDE PLASENCIABEBETO Work Phone: [facility] 09-29-2024 19:38-0500 Body temperature 97.3 [degF] DOMINGO PLASENCIABEBETO Work Phone: [facility] 04-30-2024 12:54-0400 Body height 165.1 cm [employer] [facility] 04-30-2024 12:54-0400 Body temperature 97.88 [degF] [employer] [facility] 04-30-2024 12:54-0400 Body weight 124.73 kg [employer] [facility] 04-30-2024 12:54-0400 Diastolic blood pressure 97 mm[Hg] [employer] [facility] 04-30-2024 12:54-0400 Heart rate 81 /min [employer] [facility] 04-30-2024 12:54-0400 Respiratory rate 18 /min [employer] [facility] 04-30-2024 12:54-0400 SaO2% (BldA) [Mass fraction] 99 % [employer] [facility] 04-30-2024 12:54-0400 Systolic blood pressure 173 mm[Hg] [employer] [facility] 04-08-2023 21:46-0400 Body temperature 97.1 [degF] [employer] [facility] 04-08-2023 21:46-0400 Body weight 124.73 kg Power [employer] [facility] 04-08-2023 21:46-0400 Diastolic blood pressure 93 mm[Hg] [employer] [facility] 04-08-2023 21:46-0400 Heart rate 90 /min [employer] [facility] 04-08-2023 21:46-0400 Respiratory rate 18 /min [employer] [facility] 04-08-2023 21:46-0400 SaO2% (BldA) [Mass fraction] 100 % [employer] [facility] 04-08-2023 21:46-0400 Systolic blood pressure 151 mm[Hg] [employer] [facility] 02-21-2022 14:00-0400 Diastolic blood pressure 87 mm[Hg] Pcp Unknown [facility] 02-21-2022 14:00-0400 Heart rate 75 /min Pcp Unknown [facility] 02-21-2022 14:00-0400 Respiratory rate 20 /min Pcp Unknown [facility] 02-21-2022 14:00-0400 SaO2% (BldA) [Mass fraction] 96 % Pcp Unknown [facility] 02-21-2022 14:00-0400 Systolic blood pressure 148 mm[Hg] Pcp Unknown [facility] 11-11-2019 00:37-0500 Diastolic blood pressure 73 mm[Hg] Katie Torres Work Phone: JEEVAN Work Phone: 11-11-2019 00:37-0500 Heart rate 84 /min Katie Torres Work Phone: ZAINA Work Phone: 11-11-2019 00:37-0500 Respiratory rate 16 /min Katie Torres Work Phone: [facility]AIN[facility] Work Phone: 11-11-2019 00:37-0500 SaO2% (BldA) [Mass fraction] 100 % Katie Torres Work Phone: JEEVAN Work Phone: 11-11-2019 00:37-0500 Systolic blood pressure 132 mm[Hg] Katie Torres Work Phone: JEEVAN Work Phone: 11-10-2019 20:10-0500 Body height 160 cm Katie Torres Work Phone: ZAINA Work Phone: 11-10-2019 20:10-0500 Body mass index (BMI) [Ratio] 41.27 kg/m2 Katie Torres Work Phone: JEEVAN Work Phone: 11-10-2019 20:10-0500 Body temperature 98.2 [degF] Katie Torres Work Phone: ZAINA Work Phone: 11-10-2019 20:10-0500 Body weight 105.69 kg Katie Torres Work Phone: ZAINA Work Phone: 09-13-2019 01:44-0500 BMI (Body Mass Index) 41.63 kg/m2 Timo Block [facility]- [place], [place] 09-13-2019 01:44-0500 Body Temperature 98.4 [degF] [facility] [place] 09-13-2019 01:44-0500 Body weight 106.59 kg Timo Ferrell [facility], [place] 09-13-2019 01:44-0500 BP Diastolic 77 mm[Hg] Timo Ferrell [facility], [place] 09-13-2019 01:44-0500 BP Systolic 128 mm[Hg] Timo Ferrell [facility], [place] 09-13-2019 01:44-0500 Height 160 cm Timo Ferrell [facility], [place] 09-13-2019 01:44-0500 Pulse (Heart Rate) 77 /min Timo Ferrell [facility], [place] 09-13-2019 01:44-0500 Pulse Oximetry 98 % Timo Ferrell [facility], [place] 09-13-2019 01:44-0500 Respiratory Rate 18 /min Timo Ferrell [facility] [place] Encounters Encounter Date Encounter Type Care Provider Facility Start: 08-26-2025 End: 08-26-2025 Emergency department patient visit [facility] Facility:[facility] Start: 08-22-2025 End: 08-22-2025 Emergency department patient visit Domingo Cricket Facility:[facility] Start: 08-16-2025 End: 08-17-2025 Emergency department patient visit [facility] Facility:[facility] Start: 05-14-2025 End: 05-14-2025 Emergency department patient visit Emanuel Onesimo STEIN Work Phone: [facility] EMERGENCY DEPT Comment on above: Abscess of jaw, righ t (Primary Dx) Start: 04-26-2025 End: 04-27-2025 Emergency department patient visit Diamond Quiroz MD Work Phone: [facility] EMERGENCY DEPT Comment on above: Lightheadedness (Rere claudia Dx); Acute cystitis without hematuria Start: 04-26-2025 End: 04-26-2025 [facility] Start: 04-26-2025 End: 04-26-2025 Subsequent hospital visit by physician [facility] Non-Invasive Cardiology Comment on above: Arrived Start: 10-30-[address] DOMINGO HARLEY DO Facili ty:A Start: 09-29-2024 End: 09-29-2024 Emergency department patient visit DOMINGO HARLEY Work Phone: [facility]-Emergency Department Start: 09-25-2024 End: 09-25-2024 Emergency department patient visit IVAN GUERRERO Facility:D Start: 04-30-2024 End: 04-30-2024 Emergency department patient visit [employer] [facility]-EMERGENCY Work Phone: Start: 04-08-2023 End: 04-08-2023 Emergency department patient visit [employer] [facility] Start: 02-20-2022 End: 02-21-2022 Emergency department patient visit Peter Westbrook [facility] Adult ED Gold 13 Start: 11-10-2019 End: 11-11-2019 Emergency department patient visit Katie Torres Work Phone: [facility] Emergency Dept Comment on above: Bronchitis (Primary Dx) Start: 09-13-2019 End: 09-13-2019 Emergency department patient visit Timo Hunter Work Phone: [facility] Emergency Dept Comment on above: Acute alcoholic into xication without complication (HCC) (Primary Dx) Start: 03-14-2018 End: 03-14-2018 Emergency department patient visit JOSE ALEMAN Facility:[facility] Start: 02-15-2018 End: 02-15-2018 Emergency department patient visit NELSON Patti VALADEZ Facility:[facility] Start: 05-12-2017 End: 05-13-2017 [facility] Facility[facility] Procedures Date Procedure Procedure Detail Performing Clinician Start: 05-14-2025 Ecg routine ecg w/le ast 12 lds trcg only w/o i&r Emanuel Godinez DO Work Phone: Start: 05-14-2025 Incision & drainage abscess simple/single Dulce Yan MD Work Phone: Start: 04-26-2025 Blood [...] Phone: Start: 04-08-2023 X-ray of right ankle [employer] Start: 02-20-2022 End: 02-20-2022 EKG impression Robert Brenda Start: 02-20-2022 End: 02-20-2022 Venous Full Panel -Stat Robert Brenda Start: 11-10-2019 Radiologic exam ches t 2 views 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 VACCINE SPECIALIST - APARTMENT HOTEL MANAGER Work Phone: Plan of Treatment Date Care Activity Detail Author Start: 2068 RSV Immunization for Adults (1 - 1-dose 75+ series) RSV Immunization for Adults (1 - 1-dose 75+ series) [facility] Start: 2043 Zoster Vaccines (1 of 2) Zoste r Vaccines (1 of 2) [facility] Start: 07-09-2025 Influenza vaccination S [facility] Start: 07-09-2024 COVID-19 Vaccine ( season) COVID-19 Vaccine ( season) [facility] Start: 07-26-2023 Screening for malign ant neoplasm of cervix [facility] Start: 02-20-2022 End: 02-21-2023 Lidocaine 1% - EPINEPHrine 1:100,000 Injectable SubCutaneous Once ; DOSE = 10 mL SubCutaneous Once Start: 20-Feb-2022 End: 20-Feb-2023 Ordered: 20-Feb-2022 Robert Gutierrez [facility] Start: 09-18-2019 End: 09-18-2019 Office Visit 09/18/2019 Office Visit Internal Medicine Jake Crouch II, DO [address] [place] [address] [phone] [facility] Internal [facility] [place] Start: 07-09-2019 Influenza vaccination Flu vaccine (# 1) [place], [place] Start: 2014 Cervical cancer screen Cervical canc er screen [place], [place] Start: 2014 Screening for malign ant neoplasm of cervix Pap Smear [facility] Start: 2012 DTaP/Tdap/Td vaccine (1 - Tdap) DTaP/Tdap/Td vaccine (1 - Tdap) [place], [place] Start: 2012 DTaP/Tdap/Td Vaccine s (1 - Tdap) DTaP/Tdap/Td Vaccines (1 - Tdap) [facility] Start: 2012 Hepatitis B Vaccines (1 of 3 - 19+ 3-dose series) Hepatitis B Vaccines (1 of 3 - 19+ 3-dose series) [facility] Start: 2011 Hepatitis C screening Hepatitis C Sc reening [facility] Start: 2008 HIV screen HIV screen [place], [place] Start: 2008 HPV vaccine (1 - Fem kimberly 3-dose series) HPV vaccine (1 - Female 3-dose series) [place], [place] Start: 2006 Varicella vaccination Varicell a Vaccines (1 of 2 - 13+ 2-dose series) [facility] Start: 2006 Varicella Vaccine (1 of 2 - 13+ 2-dose series) Varicella Vaccine (1 of 2 - 13+ 2-dose series) [place] Start: 2005 Depression Monitoring Depression Mon itoring [facility] Start: 2004 DTaP/Tdap/Td vaccine (1 - Tdap) DTaP/Tdap/Td vaccine (1 - Tdap) [facility] Work Phone: Start: 2004 HPV vaccine (1 - Fem kimberly 2-dose series) HPV vaccine (1 - Female 2-dose series) [facility] Work Phone: Start: 1994 MMR Vaccines (1 of 1 - Standard series) MMR Vaccines (1 of 1 - Standard series) [facility] Start: 1994 Varicella Vaccine (1 of 2 - 2-dose childhood series) Varicella Vaccine (1 of 2 - 2-dose childhood series) [facility] Work Phone: Start: 1993 HIV screening HIV Screening [facility] Start: 1993 Lipid panel Lipid Panel [facility] End: 04-26-2025 Lamotrigine level [facility] Work Phone: Comment on above: Once (Lab) for 1 Occ urrences starting 04/26/2025 until 04/26/2025 Patient Education [facility] Patient referral [facility] Work Phone: Immunizations Immunization Date Immunization Notes Care Provider Lanre hoang 08-11-2022 influenza virus vacc ine, unspecified formulation [facility] Payers Date Payer Category Payer Medicaid HMO [employer] ODM [id number] 2024 Self-pay 2019 Unknown [employer] [place] MEDICA[place] xxxxxxxxxxx 2019-Present [phone] CLAIMS DEPARTMENT [address] [place] [address] xxxxxxxxxxx [id number] 2016 Unknown [id number] 1993 Unknown [id number] 1993 Unknown [id number] Unknown [id number] Unknown [employer] Unknown [id number] Unknown [id number] Unknown [id number] Unknown [id number] Unknown [id number] Social History Date Type Detail Facility Start: 09-13-2019 End: 09-29-2024 Tobacco smoking status NHIS Never smoker [facility] Start: 09-13-2019 End: 05-14-2025 Alcohol intake No [facility] [employer] Start: 1995 Sex Assigned At Not on file [place], [place] Start: 11-10-2019 End: 05-14-2025 Alcohol intake Current drinker of alcohol (finding) [employer] Work Phone: Start: 11-10-2019 Alcohol Comment occasionally [employer] Work Phone: Start: 04-30-2024 Tobacco smokin g consumption unknown [facility] Start: 03-22-2015 No [facility] Start: 1995 Sex Assigned At Female [facility] Start: 06-08-2022 End: 09-29-2024 Sex Female (finding) [facility] Start: 10-27-2022 End: 05-14-2025 History of Social function [facility] How often to you hav e a drink containing alcohol? Never [facility] How many standard drinks containing alcohol do you have on a typical day? Patient does not drink [facility] Functional Status Date Assessment Result Facility 05-14-2025 Total score [AUDIT-C] 0 05/14/20 12:23 AM EDT Sandra Perry RN [facility] 09-29-2024 Functional status Lives At Home [facility] Work Phone: [facility] Clinical Notes 02-20-2022 to 05-14-2025 Discharge InstructionsDulce Yan MD - 05/14/2025 12:19 AM EDCamila Godinez, DO - 05/14/2025 12:19 AM EDTDulce Yan MD - 05/14/2025 12:19 AM John Godniez, DO - 05/14/2025 12:19 AM EDT Note [...] are unable breve. documented in this encounter [facility] 05-14-2025 Emergency department Note Associated Order(s): Incision [...] Response: Oriented Best Motor Response: Follows commands Ross Coma Scale Score: 15 PHYSICAL EXAM ED [...] Medications managed: Medications lidocaine-EPINEPHrine (Xylocaine W/EPI) 1 %-1:449579 injection 10 mL (10 mL Infiltration Given by Other 05/14/25 0154) clindamycin (Cleocin) capsule 300 mg (300 mg Oral Given 05/14/25 0102) LORazepam (Ativan) tablet 0.5 mg (0.5 mg Oral Given 05/14/25 0157) methocarbamol (Robaxin) tablet 500 mg (500 mg Oral Given 05/14/25 0217) lamoTRIgine (LaMICtal) tablet 150 mg (150 mg Oral Given 05/14/25308) Cariprazine capsule 1.5 mg (1.5 mg Oral Given 05/14/25308) PROCEDURES: Unless otherwise noted below, none Incision [...] documented as signed by this procedure note Insurance Sales Supervisor(s): Dr. Godinez Glove Turner And Former Automatic: Dr. Godinez FINAL IMPRESSION 1. Abscess of jaw, right DISPOSITION Discharge 05/14/2025 03:48:31 AM PATIENT REFERRED TO: Katie Torres [address] [place] [id number] Schedule an appointment as soon as possible [...] dictating provider for clarification.) Emanuel Godinez DO [facility] Emanuel Godinez DO 05/14/25 0139 documented in this encounter [facility] 05-14-2025 Physician Emergency department Note Associated Order(s): [...] Family History[3] SOCIAL HISTORY Social History[4] SCREENINGS [place] Coma Scale Best Eye Response: Spontaneous Best Verbal Response: Oriented Best Motor Response: Follows commands Ross Coma Scale Score: 15 PHYSICAL EXAM ED [...] precautions and follow-up instructions. Diagnoses as of 05/14/25645 Abscess of jaw, right ED Medications managed: Medications lidocaine-EPINEPHrine (Xylocaine W/EPI) 1 %-1:872078 injection 10 mL (10 mL Infiltration Given [...] documented as signed by this procedure note Insurance Sales Supervisor(s): Dr. Godinez Glove Turner And Former Automatic: Dr. Godinez FINAL IMPRESSION 1. Abscess of jaw, right DISPOSITION Discharge 05/14/2025 03:48:31 AM PATIENT REFERRED TO: Katie Jamil Torres [address] [facility] [address] Schedule an appointment as soon as possible [...] Godinez DO at 05/14/2025 6:46 AM EDT [facility] 05-14-2025 Physician Emergency department Note Emergency Department Encounter [facility] EMERGENCY DEPT Patient: Nadia Bronw : 1995 Date of Evaluation: 05/14/2025 ED [...] [employer] Emanuel Godinez DO 05/14/25 0139 [facility] 04-27-2025 Emergency department Note Pt refused vitals [facility] 04-27-2025 Emergency department Note Pt refused vitals Pt being discharged. Pt verbalized understanding of discharge instructions. Pt is A&O x3, is ambulatory, and has no questions at this time. Pt's IV has been removed. documented in this encounter [facility] 04-27-2025 Emergency department Note Pt being discharged. Pt verbalized understanding of discharge instructions. Pt is A&O x3, is ambulatory, and has no questions at this time. Pt's IV has been removed. [facility] 09-29-2024 Emergency department Note [facility] [address] [place] [address] Emergency Department Note Signed Patient: NADIA BROWN MR#: [id number] : 1995 Acct:[id number] Age/Sex: 29 / F ADM Date: [...] initially said was an antibiotic but then Blanca that the name of the antibiotic was [...] his practice. Primary care provider is in [facility]. Patient used to live there but [...] Psychiatric history: Reports anxiety, depression and PTSD TOPOGRAPHY TECHNICIAN history: Reports non-contributory Social History Smoking Status: Never smoker Physical Exam [place] than average height obese 29-year-old white female [...] Mean 106 09/29 (more content not included)... [facility] Work Phone: 02-20-2022 Note Procedure: Chart Review: PROCEDURE LACERATION REPAIR Procedure Location: bedside Pre-procedure Verification: completed Time Out - Final Verification: completed immediately prior to procedure start Procedure performed by: mt Insurance Sales Supervisor(s): (Nuno BOYD) Findings: grossly normal anatomy Specimen: [...] Updated: 20-Feb-2022 19:58 by Robert Gutierrez (PAC) [facility] Evaluation note Diagnosis Bronchitis- Primary Bronchitis, not specified as acute or chronic documented in this encounter [facility] Work Phone: Evaluation noteNo assessment information available [facility] Work Phone: Evaluation note* Diagnosis Lightheadedness- Primary Dizziness and giddiness Acute cystitis without hematuria [facility] Abscess of jaw, right- Primary [facility] Author JAMIE QUINONES [facility] April 30, 2024 2:06pm Note Date/Time April 30, 2024 1:59 pm NADIA BROWN Dwayne Female [id number] Attending provider: [facility] ER [id number] Jamie Quinones 1995 28 DOS: 04/30/24 Hx/Exam [...] gait, normal strength, normal sensation, speech clear/fluent, 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 Psychiatric: oriented x3, calm, normal [...] TID #60 cap Transmission Status: Pending to [facility] [id number] Diclofenac Sodium [Diclofenac Sodium Dr] 75 mg PO BID #20 tab Oxycodone W/ APAP 5-325 mg [Percocet 5 mg/325 mg Ud] 1 tab PO Q6H PRN PRN 3 Days#10 tab PRN Reason: Transmission Status: Sent to [id number] Referrals: Call,On [Primary Care Provider] - <Electronically signed by Jamie Quinones > Dictated By: REGINA BURNS Dictated Date/Time:04/30/24 1257 Electronically Signed Date/Time: 04/30/24 1306 [facility] Work Phone: Hospital Discharge instructions* Attachments The following attachments cannot be sent through Care Everywhere. * Bronchitis ([place]err[place]) [facility] Work [facility]: Hospital Discharge instructions* Additional Discharge Instructions ice an d elevate. If the symptoms worsen or new symptoms develop return to the Emergency Department (ED) immediately. Call your doctor for additional questions. Instruction/Education Provided Ankle Elvia aipatti [facility] Hospital Discharge instructions Additional Instructions The [...] That can be addressed at the same time.[facility] Work Phone: Hospital Discharge instructions* Attachments The following attachments cannot be sent through Care Everywhere. * Acute Cystitis Discharge Instructions (Montserratian) documented in this [facility] Health Summary Purpose Family History No Family [...] FoundDocuments on File Type Date Recorded Patient Life Skills Coordinator Volunteer Expl anation Advance Directives and Living Will Power of Prosthetics Assistant Advance Directive Response Recorded Date/ Time Declaration for Mental Health Treatment No April 08, 2023 8:36pm Advance Directive Response Recorded Date/ Time Advance Directives No April 08 8:36pm Durable Power Of Prosthetics Assistant No April 082022 8:36pm Living Will No April 08, 2023 8 :36pm Resuscitation Status CPR March 22, 2 015 6:16am Discharge Instructions * Attachments The following attachments cannot be sent through Care Everywhere. * Alcohol Intoxication: Acute (Montserratian) * Alcohol Use Disorder: General Info (Montserratian) documented in this encounter Assessments Diagnosis Acute alcoholic intoxication without complication (HCC)- Primary Chief Complaint and Reason for Visit Chief Complaint Admit Date DENTAL/ORAL September 29, 2024 6:20pm Additional Source Comments INFORMATION SOURCE (unrecogn ized section and content) DATE CREATED AUTHOR 04/27/2018 [facility] DATE CREATED AUTHOR AUTHOR'S ORGANIZ ATION 05/04/2018 [facility] DATE CREATED AUTHOR AUTHOR'S ORGANIZ ATION 10/16/2018 [facility] DATE CREATED AUTHOR AUTHOR'S ORGANIZ ATION 11/15/2019 [facility] DATE CREATED AUTHOR AUTHOR'S ORGANIZ ATION 02/11/2021 [facility] ([place]) DATE CREATED AUTHOR AUTHOR'S ORGANIZ ATION 03/01/2022 [facility] DATE CREATED AUTHOR AUTHOR'S ORGANIZ ATION 05/04/2024 [facility] DATE CREATED AUTHOR AUTHOR'S ORGANIZ ATION 10/03/2024 [facility] DATE CREATED AUTHOR AUTHOR'S ORGANIZ ATION 10/12/2024 [facility] ([place]) DATE CREATED AUTHOR AUTHOR'S ORGANIZ ATION 11/02/2024 [facility] DATE CREATED AUTHOR AUTHOR'S ORGANIZ ATION 05/17/2025 [facility] DATE CREATED AUTHOR AUTHOR'S ORGANIZ ATION 08/29/2025 [facility] Reason for Visit (unrecogniz ed section [...] Team Status: Active Member 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 Start: April 30, [...] September 29, 2024 End: September 29, 2024 [employer] P[employer] Designer Relationship Specialty Start Date End Date Katie Torres [address] [place] [id number] PCP - General 09/29/15 [employer] Designer Relationship Specialty Start Date End Date Katie Torres [address] [place] [address] [id number] PCP - General 09/29/15 [employer] P[employer] Designer Relationship Specialty Start Date End Date Katie Torres [address] [place] [address] [id number] PCP - General 09/29/15 Goals (unrecognized section and content) Goals may be documented in a n alternate sectionGoals may be documented in an alternate section Scheduled Active and Recently Administ ered Medications (unrecognized section and content) Medication Order 04/25/2025 04/26/2025 04/27/2025 dexAMETHasone (Decadron) injection 4 mg (COMPLETED) 4 mg, IntraVENous, Once, On Jayda 04/26/25 at 2040, For 1 dose 223 (Given - Provider: Rosalie Thomas RN) ketorolac (Toradol) injection 30 mg (COMPLETED) 30 mg, IntraVENous, Once, On Jayda 04/26/25 at 2040, For 1 dose 222 (Given - Provider: Rosalie Thomas RN) meclizine (Antivert) tablet 25 mg (COMPLETED) 25 mg, Oral, Once, On Jayda 04/26/25 at 2040, For 1 dose 222 (Given - Provider: Rosalie Thomas RN) ondansetron (Zofran) injection 4 mg (COMPLETED) 4 mg, IntraVENous, Once, On Jayda 04/26/25 at 2040, For 1 dose 223 (Given - Provider: Rosalie Thomas RN) sodium chloride 0.9 % bolus 1,000 mL (COMPLETED) 1,000 mL, IntraVENous, at 1,000 mL/hr, Administer over 1 Hours, Once, On Jayda 04/26/25 at 2040, For 1 dose 223 (New Bag - Provider: Rosalie Thomas RN) 0053 (Stopped - Provider: Jimbo Toth RN) Scheduled [...] Mendoza Reza RN) lidocaine-EPINEPHrine (Xylocaine W/EPI) 1 %-1:463556 injection 10 mL (COMPLETED) 10 mL, Infiltration, Once, On Wed05/14/25 at 0100, For 1 dose 0154 (Given by Other - Provider: Lydia Marques RN - Reason: Other - Comment: in procedure) LORazepam (Ativan) tablet 0.5 mg (COMPLETED) 0.5 mg, Oral, Once, On Wed05/14/25 at 0200, For 1 dose 0157 (Given - Provid er: Lydai Marques RN) methocarbamol (Robaxin) tablet 500 mg [...] BE BASED ON THE PRIMARY CLINICAL RECORDS. [employer] [facility]. provides no warranty or guarantee of the accuracy or completeness of information in this document.
[2025-08-31 05:14] VITALS: BP 126/83; PULSE 75; RESP 18; TEMP 36.9; O2SAT 98
== END 2025-08-31 05:17 | disposition home or self-care (01) ==
PROVIDERS: Emergency Provider Emergency Medicine; PCP Student in an Organized Health Care Education/Training Program; Visit Provider Emergency Medicine
DX: M25.571 Pain in right ankle and joints of right foot (principal); F17.200 Nicotine dependence, unspecified, uncomplicated; E66.9 Obesity, unspecified
CPT/HCPCS: 99282